=== PATIENT | male | born 1940 | race Caucasian/White ===

== ENCOUNTER 2021-01-12 12:21 | Outpatient (CLI) | payer MEDICARE, SELFPAY ==
--- NOTE | 2021-01-12 13:19 | ECHO_ITS ---
Patient Info Name: Navid Hartmann Age: 80 years : 1940 Gender: Male Ht: 72 in Wt: 220 lbs BSA: 2.27 m2 HR: 59 bpm BP: 176 / 95 mmHg Technical Quality: Good Exam Date: 01/12/2021 1:33 PM Exam Location: [facility] Patient Status: Outpatient Admit Date: 01/12/2021 Staff Ordering Physician: Jay Thomas DO Ux Developer Designer: Gabby Salgado RDCS Attending Provider: Jay Thomas DO Referring Physician: William OROPEZA; Exam Type: CA echo doppler color flow Study Info Indications - palpitations Complete two-dimensional, color flow and Doppler transthoracic echocardiogram is performed. Summary 1. Complete two-dimensional, color flow and Doppler transthoracic echocardiogram is performed. 2. Left ventricular chamber dimension is normal. 3. Left ventricular systolic function is normal, estimated at 60-65%. 4. There is mildly increased left ventricular wall thickness. 5. The left ventricular diastolic function is grade I diastolic dysfunction. 6. E/e' 10 is mildly elevated. 7. Left atrial chamber dimension is mildly enlarged. 8. There is trace aortic valve regurgitation. 9. There is trace mitral valve regurgitation. 10. There is mild tricuspid valve regurgitation. 11. No pulmonary hypertension, estimated pulmonary arterial systolic pressure is 29 mmHg. 12. There is trace pulmonic regurgitation. Left Ventricle E/e' 10 is mildly elevated. Left ventricular chamber dimension is normal. Left ventricular systolic function is normal, estimated at 60-65%. There is mildly increased left ventricular wall thickness. The left ventricular diastolic function is grade I diastolic dysfunction. Right Ventricle Right ventricular chamber dimension is normal. Right ventricular systolic function is normal. Left Atria Left atrial chamber dimension is mildly enlarged. Right Atria Right atrial chamber dimension is normal. Aortic Valve The aortic valve is trileaflet. There is no aortic valve stenosis. There is trace aortic valve regurgitation. Pulmonic Valve There is trace pulmonic regurgitation. Mitral Valve There is no mitral valve stenosis. There is trace mitral valve regurgitation. Tricuspid Valve There is mild tricuspid valve regurgitation. No pulmonary hypertension, estimated pulmonary arterial systolic pressure is 29 mmHg. Pericardium/Pleural There is no pericardial effusion. Inferior Vena Cava Normal inferior vena cava with >50% collapse upon inspiration consistent with normal right atrial pressure, 5 mmHg. Aorta The aortic root size at the sinus of Valsalva is normal. Left Ventricular Outflow Tract Name Value Normal LVOT 2D LVOT Diameter 2.1 cm LVOT Doppler LVOT Peak Gradient 4 mmHg LVOT Mean Gradient 2 mmHg LVOT VTI 23 cm LVOT VTI/AV VTI Ratio 0.8 LVOT Stroke Volume 83 ml LVOT CO 15.4 l/min LVOT CI 6.8 l/min/m2 Pulmonic Valve
== END 2021-01-12 12:22 | disposition home or self-care (01) ==
PROVIDERS: PCP Family Medicine Sports Medicine; Visit Provider Internal Medicine Cardiovascular Disease
DX: R00.2 Palpitations (principal); I36.1 Nonrheumatic tricuspid (valve) insufficiency
CPT/HCPCS: 93306

== ENCOUNTER 2021-08-03 16:26 | Observation (INO) | payer MEDICARE, SELFPAY ==
[2021-08-03] VITALS (8 sets, daily range): BP systolic 125–161; BP diastolic 70–104; PULSE 56–79; RESP 16–20; TEMP 35.9–36.6; O2SAT 97–100
--- OUTSIDE RECORDS SUMMARY | 2021-08-03 14:56 | XMS_ITS ---
:1940 Author Care Team Providers Name Role Phone DR. VICKY LOMBARDO Primary Care Provider [phone] DR. VICKY LOMBARDO Referring Provider [phone] Allergies None recorded. Medications Name Status Start Date Stop Date ? ? albuterol sulfate HFA 90 mcg/actuation aerosol inhaler Active ? Not available INHALE 2 PUFFS BY MOUTH INTO THE LUNGS EVERY 6 HOURS NEEDED FOR WHEEZING allopurinol 300 mg tablet Completed ? 2021 alprazolam 0.25 mg tablet Completed ? 2018 amlodipine 5 mg tablet Active ? Not avail able amoxicillin 875 mg tablet Completed ? 2018 amoxicillin 875 mg-potassium Completed ? clavulanate 125 mg tablet azithromycin 250 mg tablet Completed ? 05/04 benzonatate 100 mg capsule Completed ? 05/04 TK 2 CS PO BID bupivacaine HCl 0.5 % (5 mg/mL) injection solution Active ? Not available Take 20 mg by injection route. cefdinir 300 mg capsule Completed ? 05/04/20 19 cephalexin 500 mg capsule Completed ? 2018 doxycycline hyclate 100 mg capsule Active ? Not available Take 1 capsule twice a day by oral route. hydrocodone 5 mg-acetaminophen 325 mg Completed ? 05/04/2019 tablet hydrocodone 7.5 mg-acetaminophen 500 mg Completed ? 05/04/2019 tablet Kenalog 10 mg/mL suspension for injection Active ? Not available In office injection administered by the provider lidocaine (PF) 10 mg/mL (1 %) injection solution Completed ? 06/14/2021 In office injection administered by the provider meloxicam 15 mg tablet Completed ? 9 methylprednisolone 4 mg tablets in a Completed ?
--- OUTSIDE RECORDS SUMMARY | 2021-08-03 14:56 | XMS_ITS | Encounter Summary ---
:1940 Author Care Team Providers Name Role Phone Dr. Jono Haque Primary Care Provider [phone] Dr. Jono Haque Referring Provider [phone] Reason for Visit Left Knee Problem/Pain Assessment and Plan Assessment Note patient returns knee pain left jon ullandry is doing okay although he does have tear he has got impingement in the shoul landry but not bad as the left knee involving primarily has moderate arthritis on his x-rays but certainly not [id number] will give a shot will try an MRI scans he was going on he has any changes or problems he will call discussed 1. Pain of left knee joint ? XR, knee, 3 view ? bupivacaine HCl 0.5 % (5 m g/mL) injection solution ? Kenalog 10 mg/mL suspensio n for injection ? injection/aspiration joint /bursa (PROC) - in office procedure, administered by provider Discussion Note: None recorded.Patient educational handouts: No information available. Plan of Care Reminders Provider Appointments None ? ? recorded. Lab None ? ? recorded. Referral None ? ? recorded. Procedures 06/14/2021 In-Office O rder Injection/aspiratio n Joint/bursa (PROC) Surgeries None ? ? recorded. Imaging XR, Knee, 06/14/2021 [facility] 3 View [place] Medications
--- OUTSIDE RECORDS SUMMARY | 2021-08-03 14:56 | XMS_ITS | Encounter Summary ---
:1940 Author Care Team Providers Name Role Phone Dr. Jono Haque Primary Care Provider [phone] Dr. Jono Haque Referring Provider [phone] Reason for Visit Left Knee Problem/Pain Assessment and Plan Assessment Note Patient has severe spondylosis of the cervical and thoracic spine x-rays show a dish type appearance. He has very large anterior osteophytes off the anterior C-spine with bridging of the osteophytes, he may have significant neural foraminal and central stenosis. We will get an MRI sca n for evaluation to make sure he does not have myelopathy significant nerve compre ssion. We will see him back after the MRI is done talked about further treatment opti ons at that time he may need referral to a spine surgeon. As far as his thoracic sp ine goes this seems to be less of an issue for him he gets occasional aches and pedrito ns here I do not see any evidence of fractures he does have significant spond ylosis here as well. Patient also has resolved left knee pain MRI scan only sh owed primary osteoarthritis no meniscal pathology. He did well with shot of john isone. We will continue to watch this manage it as necessary. He voiced understanding agrees above plan will call for any further problems difficulties or questions. Cert ainly if his symptoms worsen or change with his neck is instructed call immediately. 1. Pain of left knee joint 2. Neck pain ? XR, cervical spine, 2 or 3 view ? XR, thoracic spine ? MRI, neck, w/o contrast 3. Cervical radiculopathy 4. Thoracic spondylosis 5. Osteoarthritis of left knee j oint Discussion Note: None recorded.Patient educational handouts: No information available. P
--- OUTSIDE RECORDS SUMMARY | 2021-08-03 14:56 | XMS_ITS ---
:1940 Author Care Team Providers Name Role Phone DR. VICKY LOMBARDO Primary Care Provider [phone] DR. VICKY LOMBARDO Referring Provider [phone] VICKY LOMBARDO MD Primary Care Provider [phone] Allergies Code Code System Name Reaction Severity Status Onset NKDA ? Medications Name Status Start Date Stop Date ? ? allopurinol 300 mg tabs Active ? Not nell ilable allopurinol 300 mg tablet Active ? Not av ailable alprazolam 0.25 mg tablet Completed ? 2018 amlodipine 5 mg tablet Active ? Not avail able amlodipine besylate 5 mg tabs Active ? N ot available amoxicillin 875 mg tablet Completed ? 2018 azithromycin 250 mg tablet Completed ? 05/04 benzonatate 100 mg capsule Completed ? 05/04 TK 2 CS PO BID cefdinir 300 mg capsule Completed ? 05/04/20 cephalexin 500 mg capsule Completed ? 2018 doxycycline hyclate 100 mg capsule Completed ? 05/04/2019 hydrocodone 5 mg-acetaminophen 325 mg Completed ? 05/04/2019 tablet hydrocodone 7.5 mg-acetaminophen 325 mg Active ? Not available tablet hydrocodone 7.5 mg-acetaminophen 500 mg Completed ? 05/04/2019 tablet Kenalog 10 mg/mL suspension for injection Active ? Not available In office injection administered by the provider lidocaine (PF) 10 mg/mL (1 %) injection solution Active ? Not available In office injection administered by the provider meloxicam 15 mg tablet Completed ? 9 methylprednisolone 4 mg tablets in a Completed ? 05/04/2019
--- OUTSIDE RECORDS SUMMARY | 2021-08-03 15:10 | XMS_ITS | Encounter Summary ---
:1940 Author Care Team Providers Name Role Phone Dr. Jono Haque Primary Care Provider [phone] Dr. Jono Haque Referring Provider [phone] Reason for Visit Left Knee Problem/Pain Assessment [...]
--- OUTSIDE RECORDS SUMMARY | 2021-08-03 15:10 | XMS_ITS | Encounter Summary ---
:1940 Author Care Team Providers Name Role Phone Dr. Jono Haque Primary Care Provider [phone] Dr. Jono Haque Referring Provider [phone] Reason for Visit Left Knee Problem/Pain Assessment and Plan Assessment Note patient returns knee pain left jon ullandry is doing okay although he does have tear he has got impingement in the shoul landry but not bad as the left knee involving primarily has moderate arthritis on his x-rays but certainly not [id number] will give a shot will try an [...] Knee, 06/14/2021 [facility] 3 View [place] Medications
--- OUTSIDE RECORDS SUMMARY | 2021-08-03 15:10 | XMS_ITS ---
:1940 Author Care Team Providers Name Role Phone DR. VICKY LOMBARDO Primary Care Provider [phone] DR. VICKY LOMBARDO Referring Provider [phone] VICKY LOMBARDO MD Primary Care Provider [phone] Allergies Code Code System Name Reaction Severity [...]
--- OUTSIDE RECORDS SUMMARY | 2021-08-03 15:10 | XMS_ITS ---
:1940 Author Care Team Providers Name Role Phone DR. VICKY LOMBARDO Primary Care Provider [phone] DR. VICKY LOMBARDO Referring Provider [phone] Allergies None recorded. Medications Name Status Start [...]
--- NOTE | 2021-08-03 16:05 | PM.CNCAR ---
Assessment and Plan Assessment and plan (1) Chest pain: Code(s): R07.9 - Chest pain, unspecified Status: Acute Assessment and Plan: Probably musculoskeletal or costochondritis. Check another troponin here. Check EKG. (2) Vasovagal near syncope: Code(s): R55 - Syncope and collapse Status: Acute Assessment and Plan: Monitor overnight on telemetry for arrhythmias or pauses. (3) MARYBEL on CPAP: Code(s): G47.33 - Obstructive sleep apnea (adult) (pediatric); Z99.89 - Dependence on other enabling machines and devices Status: Acute (4) Obesity (BMI 30.0-34.9): Code(s): E66.9 - Obesity, unspecified Status: Acute (5) Essential hypertension: Code(s): I10 - Essential (primary) hypertension Status: Acute Assessment and Plan: Monitor. History of Present Illness History of Present Illness Consult date/time: 08/03/21 16:05 Reason for consult: CP. 80 yr old man who is my regular cardiology patient is transferred from [facility] for chest pains. He has a history of MARYBEL on CPAP and hypertension, covid infection in November 2020. States that light evening he felt sharp jabbing pain just left of his sternum and under left breast. He took Tums and NTG SL with no improvement but it comes and goes. He woke up this morning and felt upset stomach while walking to get coffee in the kitchen. Then he felt dizzy so he got down on his knees and lied down. His gave him a NTG SL. He did not actually pass out. Then he needed to have a bowel movement. Currently he has no dizziness or chest pains, he just feels hungry. Troponin is negative at [facility]. Previously, he recovered from symptoms of Covid including Covid pneumonia and DOUGLAS. He had Pfizer vaccine in August 2020. He only has a thump of an extra beat only. Denies sob, orthopnea, PND, edema, dizziness. His BP machine detected extra beats intermittently. CARDIOVASCULAR PROCEDURES ECHO/MUGA: 01/12/21 Echo: EF 60-65%, mild LVH, grade I diastolic dysfunction (E/e' 10), mild LAE, trace AI/MR/PI, mild TR. Echo (EF 55-60%, sigmoid hypertrophy of septum, Grade I diastolic dysfunction (E/E' 12), mild MR/PI, TR, trace AI, aortic root dilated at 4.1 cm.) - 11/16/2015 ELECTROPHYSIOLOGY: 05/02/20 28 days event monitor: Sinus rhythm, HR range 40-165 bpm; average HR 61 bpm; <1% PAC's and 3% PVC's; one 4 beat atrial tachycardia and 1 4 beat VT. 04/25/20 EKG: Sinus bradycardia at 57 bpm, IRBBB, LAFB. EKG (Sinus rhythm, LAFB.) - 08/26/2017 EKG (Sinus rhythm at 53 bpm, delayed precordial R/S transition, IVCD.) - 06/04/2016 Holter (48 hours: Sinus rhythm HR 43-127;average 62; 875 PAC's; 188 PVC's; brief episodes of SVT/atrial flutter at 5-10 seconds.) - 11/22/2015 EKG (Sinus rhythm, IVCD, LAFB.) - 10/23/2015 EKG (Sinus rhythm, borderline T wave abnormality- inferior leads, IVCD, LAFB.) - 06/14/2015 STRESS TESTS: MPI (Exercise MPI: Negative for ischemia; exercised for 6 min, 42 seconds. Small, mild infarct of apical septum.) - 10/03/2017 MPI (Negative for ischemia.) - 11/17/2015 OTHERS: Sleep Study (MARYBEL.) - 11/29/2015 Reason For Visit: Chest pain Review of Systems Review of Systems: All systems reviewed & are unremarkable except as noted in HPI and below Constitutional: Constitutional: Reports as per HPI, Denies chills, Reports fatigue and Denies fever(s) Cardiovascular: Cardiovascular: Reports as per HPI, Reports chest pain, Denies leg edema and Reports lightheadedness Respiratory: Respiratory: Reports as per HPI and Denies dyspnea Gastrointestinal: Gastrointestinal: Reports as per HPI and Denies abdominal pain Genitourinary: Genitourinary: Reports as per HPI and Denies dysuria Musculoskeletal: Musculoskeletal: Reports as per HPI Neurologic: Reports as per HPI, Reports dizziness and Denies syncope [facility] Past Medical History Medical History (Reviewed 12/26/20 @ 14:05 by Claire Joyner [facility] [address]) Body mass index (bmi) 29.0-29.9, adult
--- NOTE | 2021-08-03 16:12 | ECG_ITS ---
Measurements Intervals [place] Rate: 59 P: 42 WY: 209 QRS: -53 QRSD: 158 T: 39 QT: 414 QTc: 411 Interpretive Statements SINUS BRADYCARDIA INTRAVENTRICULAR CONDUCTION DELAY [130+ ms QRS DURATION] NO PREVIOUS ECG AVAILABLE FOR COMPARISON Electronically Signed On 08-04-2021 14:18:28 RECYCLING COLLECTIONS DRIVER by Joss Johnson M.D.
--- NOTE | 2021-08-03 16:16 | ADMGEN ---
This patient, Navid Hartmann, was admitted to IMU Room 204-01 at 1415. Patient/family oriented to hospital policies and general routines including ID bracelet, bed and alarms, visiting hours, pain management, procedures, bathroom and other care routines, personal items, smoking policy, room service/diet, and visiting hours. Information on how to activate the Rapid Response Team has been discussed. Patient/Family are encouraged to report perceived risks to care and to ask questions if they do not understand what they are told or what they should do.
[2021-08-03 17:09] LABS: Troponin I < 0.012 ng/mL (0.000-0.034)
--- NOTE | 2021-08-03 18:30 | PM.IMHP ---
H&P: HPI History of Present Illness Date/Time: 08/03/21 18:30 <Genet Johnson PA-C - Last Filed: 08/03/21 22:46> Chief Complaint: Chest pain. <Genet Johnson PA-C - Last Filed: 08/03/21 22:46> Narrative: This is a pleasant 80-year-old male with history of hypertension and sleep apnea who is being directly admitted to the hospitalist service from the emergency department at [facility] in [place] for further evaluation of chest pain and consultation with his general accounting clerk, Dr. Thomas. Last evening while eating dinner he had a couple of instances of self-limiting left anterior chest pain that he describes as sharp or poking in nature. He took nitroglycerin sublingual x2 with resolution of his symptoms and he slept just fine overnight. This morning not long after getting out of bed he was walking down the hallway to the kitchen when he began to feel ?strange.? Reportedly he began to feel weak, lightheaded and diaphoretic. He fell down onto his knees as he thought perhaps he was going to pass out and due to ongoing lightheadedness he lay on the floor. He called for his who brought his blood pressure cuff at which time he noted that his blood pressure was 170/92. Shortly thereafter he once again had sharp chest pain with nausea and he took another sublingual nitroglycerin. Eventually he felt better and his helped him up and he was going to lie down in bed for a while though once he got into his bedroom he had the sudden urge to have a bowel movement and he reports passing a normal stool. While on the toilet he once again had this sharp chest discomfort and he took 1 more nitroglycerin before going to the ER. EKG done today on arrival to our facility showed sinus bradycardia with intraventricular conduction delay and no acute ST segment changes. He has ruled out for acute coronary syndrome by serial troponins. At the time my evaluation he is having no discomfort and he is eating a meal without issue. He has occasional GERD but these symptoms over the past 24 hours are not at all similar to those he experiences with indigestion. He has not had any difficulty swallowing but reports having dysphagia a couple of months ago when he was started on fish oil pills for which he was given speech therapy exercises and he has not had any problems since. He does take naproxen 500 mg twice daily though he denies abdominal and epigastric discomfort. He has not noticed melena or hematochezia. <Genet Johnson PA-C - Last Filed: 08/03/21 22:46> Review of Systems Review of Systems: Twelve systems were reviewed. No fever. No recent cold or flu symptoms. He had COVID last summer. No sick contacts. Denies exertional chest pain and palpitations. No pleuritic pain. No orthopnea, PND, or lower extremity edema. Except as documented, all other systems were reviewed and are negative. <Genet Johnson PA-C - Last Filed: 08/03/21 22:46> [facility] Past Medical History Medical History: Medical History (Updated 08/03/21 @ 22:42 by Genet Johnson PA-C) Abnormal stress test (09/2017) Exercise stress was negative for ischemia. MPI showed small, mild infarct of the apical septum. Diastolic dysfunction Echocardiogram in December 2020 showed grade 1 diastolic dysfunction, mild LVH, and an EF of 60 to 65%. Essential hypertension Gout Obstructive sleep apnea on CPAP <Genet Johnson PA-C - Last Filed: 08/03/21 22:46> Surgical History Surgical History: Surgical History (Updated 08/03/21 @ 22:39 by Genet Johnson PA-C) History of arthroscopic knee surgery History of bilateral carpal tunnel release History of hernia repair History of lumbar surgery History of repair of rotator cuff <Genet Johnson PA-C - Last Filed: 08/03/21 22:46> Family History Family History: Family History Sibling Cerebrovascular accident Cancer Father Heart failure [place]
[2021-08-03 20:01] LABS: Glucose Point of Care 185 mg/dl (65-105)
[2021-08-03] MEDS: ASPIRIN 81 MG ENTERIC TABLET PO (23:23)
[2021-08-03] MEDS: amLODIPine BESYLATE 5 MG TABLET PO (23:24)
[2021-08-04] VITALS (7 sets, daily range): BP systolic 151–169; BP diastolic 57–74; PULSE 52–68; RESP 18–21; TEMP 35.6–36.3; O2SAT 97–100
--- NOTE | 2021-08-04 02:52 | PC.NURSE ---
Report given to Sindy Mace RN. She will take over care of this patient.
[2021-08-04 04:43] LABS: Hematocrit 41.8 % (42.0-52.0); Hemoglobin 13.8 g/dL (14.0-18.0); Mean Corpuscular Hemoglobin 28.8 pg (26-34); Mean Corpuscular Volume 87.1 fl (80-100); Mean Platelet Volume 10.9 fl (7.4-10.4); Platelet Count Result 180 k/mm3 (150-375); Red Cell Distribution Width 14.4 % (11.5-14.5); White Blood Count 7.8 K/mm3 (4.5-10.0)
[2021-08-04 04:51] LABS: Hemoglobin A1C 5.4 % (<5.7)
[2021-08-04 04:56] LABS: Anion Gap 6 mmol/L (8-16); Blood Urea Nitrogen 17 mg/dL (9-20); Calcium 8.7 mg/dL (8.4-10.2); Carbon Dioxide 29 mmol/L (22-30); Chloride 104 mmol/L (98-107); Estimated Glomerular Filt Rate > 60; Glucose 101 mg/dL (65-110); Magnesium 2.1 mg/dL (1.6-2.3); Sodium 139 mmol/L (137-145)
--- NOTE | 2021-08-04 06:22 | PM.PNCARD ---
Progress Note: A&P Assessment and Plan (1) Chest pain: Code(s): R07.9 - Chest pain, unspecified Status: Acute Assessment and Plan: Probably musculoskeletal or costochondritis. Negative serial troponin and EKG. (2) Vasovagal near syncope: Code(s): R55 - Syncope and collapse Status: Acute Assessment and Plan: Monitor overnight on telemetry for arrhythmias or pauses. No events overnight. Keep well hydrated. Advised to lie down immediately with legs elevated if symptoms occur again to abort syncope and possible injury. May d/c home from cardiology standpoint and f/u with me in 2 weeks. Consider 30 day event monitor at that time. (3) MARYBEL on CPAP: Code(s): G47.33 - Obstructive sleep apnea (adult) (pediatric); Z99.89 - Dependence on other enabling machines and devices Status: Acute (4) Obesity (BMI 30.0-34.9): Code(s): E66.9 - Obesity, unspecified Status: Acute (5) Essential hypertension: Code(s): I10 - Essential (primary) hypertension Status: Acute Assessment and Plan: Monitor. Continue home medication. Subjective Date/time seen: 08/04/21 06:22 Denies any more chest pain or sob. No dizziness. Exam Const: General: cooperative, healthy appearing and comfortable Resp: Auscultation: clear to auscultation bilaterally, no crackles, no rales, no rhonchi and no wheezes Cardio: Jugular venous distension: no JVD Rate: regular rate Rhythm: regular rhythm Heart sounds: no murmurs Peripheral pulses: dorsalis pedis present GI: GI Palp: No abdominal tenderness and Yes Soft to palpation Neuro: General: oriented to person, oriented to place and oriented to time Extrem: Right lower extremity: no edema Left lower extremity: no edema Objective Data Vital Signs Vital Signs: Vital Signs - 24 hr 08/03/21 14:30 08/03/21 15:35 08/03/21 16:00 Temperature 97.8 F 97.8 F 96.6 F L Pulse Rate 58 L 58 L 58 L Respiratory Rate 16 16 16 Blood Pressure 155/75 H 155/75 H 125/104 H Pulse Oximetry 100 100 100 08/03/21 18:00 08/03/21 20:00 08/03/21 20:10 Temperature 97.8 F Pulse Rate 79 59 L 60 Respiratory Rate 20 Blood Pressure 161/70 H Pulse Oximetry 100 100 08/03/21 22:00 08/03/21 23:45 08/04/21 00:00 Temperature 97.4 F L Pulse Rate 61 62 63 Respiratory Rate 20 Blood Pressure 169/57 H Pulse Oximetry 97 97 08/04/21 02:00 08/04/21 04:00 08/04/21 05:05 Temperature 96.1 F L Pulse Rate 54 L 52 L 57 L Respiratory Rate 21 H Blood Pressure 152/74 H Pulse Oximetry 97 08/04/21 06:00 Temperature Pulse Rate 58 L Respiratory Rate Blood Pressure Pulse Oximetry Intake/Output Intake/Output: Intake & Output 08/01/21 08/02/21 08/03/21 08/04/21 23:59 23:59 23:59 23:59 Intake Total 740 250 Output Total 2 Balance 740 248 Meds/Results Medications: Active Medications Generic Name Dose Route Start Last Admin Trade Name Freq PRN Reason Stop Dose Admin Albuterol 2 puff 08/03/21 22:46 Albuterol Sulfate (*Sp) Aerosol 1 Puff INHALATION Q6H PRN Shortness Of Breath Allopurinol 300 mg 08/04/21 08:00 Allopurinol 300 Mg Tablet PO DAILY@0800 [facility] Amlodipine Besylate 5 mg 08/03/21 22:50 08/03/21 23:24 Amlodipine Besylate 5 Mg Tablet PO 5 mg HS MIN Administration Aspirin 81 mg 08/03/21 23:00 08/03/21 23:23 Aspirin 81 Mg Enteric Tablet PO 81 mg HS MIN Administration Fish Oil 1 gm 08/04/21 09:00 [place] 3 Polyunsat Fatty Acids 1 Gm Cap PO DAILY MIN Tramadol HCl 50 mg 08/03/21 22:46 Tramadol Hcl (*Crx) 50 Mg Tablet PO HS PRN Pain Rated 4-6 Labs Labs: Laboratory Results - last 24 hr 08/03/21 08/03/21 08/04/21 16:35 19:53 04:21 WBC 7.8 RBC 4.80 Hgb 13.8 L Hct 41.8 L MCV 87.1 MCH 28.8 MCHC 33.0 RDW 14.4 Plt Count 180 MPV 10.9 H Sodium Potassium Chloride Carbon Dioxide
[2021-08-04] MEDS: OMEGA 3 POLYUNSAT FATTY ACIDS 1 GM CAP PO (08:31)
[2021-08-04] MEDS: allopurinoL 300 MG TABLET PO (08:31)
--- NOTE | 2021-08-04 10:05 | PM.DS ---
DS: Admitting Diagnosis Discharge Date 08/04/2021 Admitting Diagnosis chest pain DS: Discharge Diagnosis Discharge Diagnosis (1) Chest pain: Code(s): R07.9 - Chest pain, unspecified Status: Acute Assessment and Plan: Atypical for cardiac pain. Has rule out for acute coronary syndrome by serial troponins. Pain is not reproducible on palpation. The patient does take naproxen 500 mg b.i.d. which could be causing some gastric discomfort though his abdominal exam was benign and he has not really had any GI complaints. Dr. Thomas has been consulted and his input is appreciated. (2) Near syncope: Code(s): R55 - Syncope and collapse Status: Acute Assessment and Plan: Sounds as though the patient had a vasovagal reaction earlier this morning however he reports that his blood pressure was high (170/92) during that episode while he was lying on the floor. (3) Diastolic dysfunction: Code(s): I51.89 - Other ill-defined heart diseases Status: Acute Assessment and Plan: Appears clinically compensated. (4) Obstructive sleep apnea on CPAP: Code(s): G47.33 - Obstructive sleep apnea (adult) (pediatric); Z99.89 - Dependence on other enabling machines and devices Status: Acute Assessment and Plan: CPAP will be provided for the patient to use while hospitalized. (5) Hyperglycemia: Code(s): R73.9 - Hyperglycemia, unspecified Status: Acute Assessment and Plan: Check fasting glucose and hemoglobin A1c. (6) Essential hypertension: Code(s): I10 - Essential (primary) hypertension Status: Acute Assessment and Plan: Patient reports that his blood pressures have been running higher than usual recently. At this time will continue with his antihypertensives and make adjustments accordingly depending on his trend. DS: Summary Hospital Course Reason for hospitalization: Chief Complaint: Chest pain. <Genet Johnson PA-C - Last Filed: 08/03/21 22:46> Narrative: This is a pleasant 80-year-old male with history of hypertension and sleep apnea who is being directly admitted to the hospitalist service from the emergency department at [facility] in [place] for further evaluation of chest pain and consultation with his forest aide, Dr. Thomas. Last evening while eating dinner he had a couple of instances of self-limiting left anterior chest pain that he describes as sharp or poking in nature. He took nitroglycerin sublingual x2 with resolution of his symptoms and he slept just fine overnight. This morning not long after getting out of bed he was walking down the hallway to the kitchen when he began to feel ?strange.? Reportedly he began to feel weak, lightheaded and diaphoretic. He fell down onto his knees as he thought perhaps he was going to pass out and due to ongoing lightheadedness he lay on the floor. He called for his who brought his blood pressure cuff at which time he noted that his blood pressure was 170/92. Shortly thereafter he once again had sharp chest pain with nausea and he took another sublingual nitroglycerin. Eventually he felt better and his helped him up and he was going to lie down in bed for a while though once he got into his bedroom he had the sudden urge to have a bowel movement and he reports passing a normal stool. While on the toilet he once again had this sharp chest discomfort and he took 1 more nitroglycerin before going to the ER. EKG done today on arrival to our facility showed sinus bradycardia with intraventricular conduction delay and no acute ST segment changes. He has ruled out for acute coronary syndrome by serial troponins. At the time my evaluation he is having no discomfort and he is eating a meal without issue. He has occasional GERD but these symptoms over the past 24 hours are not at all similar to those he experiences with indigestion. He has not had any difficulty swallowin
== END 2021-08-04 10:32 | disposition home or self-care (01) ==
PROVIDERS: Internal Medicine Cardiovascular Disease; Physician Assistant; Admitting Provider Family Medicine; PCP Family Medicine Sports Medicine; Visit Provider Family Medicine
DX: R07.9 Chest pain, unspecified (principal); R55 Syncope and collapse; I11.9 Hypertensive heart disease without heart failure; R73.9 Hyperglycemia, unspecified; M10.9 Gout, unspecified; G47.33 Obstructive sleep apnea (adult) (pediatric); Z87.891 Personal history of nicotine dependence
CPT/HCPCS: 36415; 80048; 82948; 83036; 83735; 84484; 85027; 93005; A9270; G0378

== ENCOUNTER 2021-08-08 12:43 | Inpatient (IN) | payer MEDICARE, SELFPAY ==
[2021-08-08] VITALS (18 sets, daily range): BP systolic 133–177; BP diastolic 54–89; PULSE 53–93; RESP 9–24; TEMP 35.7–36.8; O2SAT 93–100; BMI 28.9
--- NOTE | ~2021-08-08 | CT_ITS ---
EXAMINATION: CTA brain carotid EXAM DATE: 08/08/2021 15:36 INDICATION: Vertigo, dizziness, weakness, nausea. TECHNIQUE: Spiral CTA of the carotid arteries was performed with intravenous injection 100 cc of Om nipaque 350. Axial, coronal, sagittal reformatted images reviewed. Additional reformatted images cre ated on dedicated 3-D workstation. NASCET comparable standard used to assess the degree of arterial stenosis. Spiral CT angiogram cerebral arteries performed with the same intravenous injection of con trast. Source images of the brain CTA transferred to dedicated workstation for 3-D rotational image c reation. Coronal, sagittal maximum intensity pixel images also reviewed. The dose-length product (D LP) for this examination was 1218.71 mGy-cm. The exposure was tailored according to patient size, a nd iterative reconstruction (ASIR) was used as additional dose reduction technique. Correlation is ma de to head CT earlier same date. FINDINGS: There is left carotid bulb arterial sclerosis with 20% stenosis. There is minimal right car otid bulb arteriosclerosis. Less robust enhancement of the left vertebral artery, with severe stenosi s of its origin suspected. Vertebral arteries are codominant. There is no carotid or vertebral basil ar arterial dissection or fibromuscular dysplasia. There are no cerebral artery aneurysms. There is s ymmetric cerebral artery arborization. The sagittal, transverse and sigmoid sinuses enhance normally, no venous sinus thrombosis. Internal cerebral veins also enhance normally. There are 3 small low-attenuation left cerebellar lesions, possibly acute infarctions but probably gr eater than 6 hours in age. Mild atrophy and microangiopathy. Incidental Findings: Right-sided cataract surgery. IMPRESSION: 1. Small left cerebellar infarctions which could be acute. 2. Left carotid bulb 20% stenosis. 3. Codominant vertebral arteries with severely stenotic left vertebral artery origin. Reviewed, dictated and finalized at location A. HYSICAL COMPUTER
--- NOTE | ~2021-08-08 | MR_ITS ---
EXAMINATION: MR brain/brain stem wo/w con DATE: 08/09/2021 12:21 INDICATION: Vertigo. TECHNIQUE: Magnetic resonance imaging (MRI) of the brain and brainstem was performed without and with 19 mL MultiHance intravenous contrast. Sequences included sagittal and axial T1-weighted FSE, axial diffusion-weighted FS EPI, axial T2*-weighted GRE, axial T2-weighted FLAIR Propeller, axial T2-weight ed Propeller, small qeaji-hv-wmdv coronal FIESTA, small qdeav-gp-elya coronal T1-weighted FSE, and sm all gxhkq-wa-bqor axial T1-weighted SPGR. Postcontrast sequences included axial T1-weighted FSE, smal l eikwo-yq-bvtz coronal T1-weighted FSE, and small zqqyn-xe-nagq axial T1-weighted SPGR. Apparent dif fusion coefficient (ADC) maps were created. COMPARISON: Head CT 08/08/2021 FINDINGS: There are acute infarcts in the cerebellum bilaterally. There is no intracranial hemorrhage or abnormal mass lesion. There are scattered areas of nonspecific increased T2-weighted signal inten sity in the cerebral white matter. There is an old lacunar infarct in the right lentiform nucleus. Th e ventricles are normal in size. There are likely changes of right ocular lens replacement surgery. T here is mild mucosal thickening in the paranasal sinuses. The internal auditory canals and inner and middle ears are normal. The mastoid air cells are normal. IMPRESSION: 1. 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 2. 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 3. Mild nonspecific cerebral white matter disease, which likely represents chronic small vessel ische maximo disease. Reviewed, dictated and finalized at location A. ETICIAN AND MANAGER MEDICAL SPA IMPRESSION: 1. 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 2. 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 3. Mild nonspecific cerebral white matter disease, which likely represents filemaker developer vaishali small vessel ischemic disease.
--- NOTE | ~2021-08-08 | XR_ITS ---
EXAMINATION: XR abdomen/kub 1V DATE: 08/08/2021 22:39 INDICATION: Abdominal distention TECHNIQUE: A supine view of the abdomen on 2 radiographs was obtained. COMPARISON: CT abdomen and pelvis dated 03/02/2015 FINDINGS: Excreted contrast at the calyces of both kidneys and in the bladder related to an earlier contrast-en hanced CT angiogram of the head and neck. Small amount of gas scattered throughout the colon. No dila tucker loops of gas-filled bowel to suggest obstruction. Visualized portions of the lung bases are clear . 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 Ankylosis at the bilater al sacroiliac joints. IMPRESSION: 1. No dilated loops of bowel to suggest obstruction. Reviewed, dictated and finalized at location A. AL WINDER
--- NOTE | ~2021-08-08 | XR_ITS ---
EXAMINATION: XR chest 2V DATE: 08/08/2021 13:50 INDICATION: Weakness and vomiting TECHNIQUE: AP and lateral views of the chest are obtained. COMPARISON: 02/12/2008 FINDINGS: The lungs are free of acute opacities. There is no pleural effusion or pneumothorax. The ca rdiomediastinal silhouette is normal. There are bridging osteophytes at multiple levels in the spine, consistent with diffuse idiopathic skeletal hyperostosis (DISH). IMPRESSION: 1. No acute cardiopulmonary abnormality. Reviewed, dictated and finalized at location B. L BALER
--- NOTE | ~2021-08-08 | CT_ITS ---
EXAMINATION: CT brain wo con INDICATION: Dizziness and weakness COMPARISON: None TECHNIQUE: Standard unenhanced head CT. The dose-length product (DLP) was 681.00 mGy-cm. The mA was a djusted according to patient size. Iterative reconstruction technique was employed. FINDINGS: There is no acute intraparenchymal hemorrhage. No evidence of mass lesion. There are at [address] three foci of low attenuation in left cerebellar hemisphere. There is mild periventricular and sub cortical hypodensity probably related to small vessel ischemic disease. There is mild prominence of t he sulci and ventricles related to cerebral atrophy. Intracranial calcified cerebral atherosclerosis is noted. There are no extra-axial collections. There is no mass effect or midline shift. Changes in the right globe are likely from ocular lens surgery. The visualized sinuses and mastoid air cells are well aerated. IMPRESSION: 1. Three foci of low attenuation in the left cerebellar hemisphere which could reflect areas of age-i ndeterminate infarction. 2. Age related findings. Reviewed, dictated and finalized at location B. ECTOR PLATE ATTACHER IMPRESSION: 1. Three foci of low attenuation in the left cerebellar hemisphere which could reflect areas of age-indeterminate infarction. 2. Age related findings.
--- NOTE | 2021-08-08 13:31 | ECG_ITS ---
Measurements Intervals [place] Rate: 57 P: 20 VT: 206 QRS: -59 QRSD: 140 T: 47 QT: 447 QTc: 438 Interpretive Statements SINUS BRADYCARDIA WITH FIRST-DEGREE AV BLOCK INTRAVENTRICULAR CONDUCTION DELAY [130+ ms QRS DURATION] POSSIBLE LEFT VENTRICULAR HYPERTROPHY [VOLTAGE CRITERIA PLUS LAE OR QRS WIDENING] POSSIBLE SEPTAL MYOCARDIAL INFARCTION , PROBABLY OLD [30 ms Q WAVE IN V1/V2] PROBABLE LATERAL MYOCARDIAL INFARCTION , OF INDETERMINATE AGE [35 ms Q WAVE IN I/aVL/V5/V6] BASELINE ARTIFACT COMPARED TO ECG 08/03/2021 16:48:40 NO SIGNIFICANT CHANGES Electronically Signed On 08-08-2021 16:44:23 CLINIC MANAGER by Joss Johnson M.D.
[2021-08-08 13:55] LABS: Basophils Percent Auto 0.2 % (0.2-1.2); Eosinophils Percent Auto 0.2 % (0-4.4); Hematocrit 47.3 % (42.0-52.0); Hemoglobin 15.4 g/dL (14.0-18.0); Immature Granulocyte Absolute 0.02 K/mm3 (0.00-0.031); Immature Granulocyte Percent A 0.2 % (0-0.5); Lymphocytes Absolute Auto 1.27 K/mm3 (0.9-3.2); Lymphocytes Percent Auto 14.4 % (18.3-44.2); Mean Corpuscular HGB Conc 32.6 g/dl (32-36); Mean Corpuscular Hemoglobin 28.8 pg (26-34); Mean Corpuscular Volume 88.4 fl (80-100); Mean Platelet Volume 11.1 fl (7.4-10.4); Monocytes Absolute Auto 0.5 K/mm3 (0.1-0.6); Monocytes Percent Auto 5.1 % (2.6-8.5); Neutrophils Percent Auto 79.9 % (45.5-73.1); Platelet Count Result 174 k/mm3 (150-375); Red Blood Count 5.35 M/mm3 (4.6-6.20); Red Cell Distribution Width 14.3 % (11.5-14.5); White Blood Count 8.8 K/mm3 (4.5-10.0)
[2021-08-08 13:59] LABS: Add Urine Microscopic? YES; Appearance Urine Clear (Clear); Bilirubin Urine Negative (Negative); Blood Urine 1+ (Negative); Color Urine Straw (Yellow); Glucose Urine UA 3+ mg/dL (Negative); Ketones Urine Trace mg/dL (Negative); Leukocyte Esterase Ur Negative LEU/UL (Negative); Nitrate Urine Negative (Negative); Protein Urine 1+ mg/dL (Negative); Specific Grav Ur 1.009 (1.001-1.035); Urobilinogen Urine Negative mg/dL (<2.0); WBC Urine 0-3 /hpf
--- NOTE | 2021-08-08 14:05 | ED.DIZZY ---
HPI - Dizziness General Chief Complaint: Dizziness Stated Complaint: weak, dizzy Time Seen by Provider: 08/08/21 12:51 Source: RN notes reviewed History of Present Illness HPI Narrative: Patient presents emergency department from home for dizziness. Patient states that this morning he had gone to the restroom and was walking back pain began to become very dizzy states that today he felt he is got a pass out and laid down on the floor states he laid there for approximately an hour and continued to feel dizzy was able to get out his called EMS he denies having a full syncopal episode he denies any chest pain or shortness of breath he states he feels dizzy when he sits up or opens his eyes is associated with nausea was improved with Zofran by EMS denies any numbness or tingling in the extremities. Patient states symptoms began at approximately 0615 this morning Related Data Home Medications Medication Instructions Recorded Confirmed allopurinol 300 mg tablet 300 mg PO DAILY 09/03/19 08/03/21 naproxen 500 mg tablet 500 mg PO BID tablet 09/03/19 08/03/21 aspirin 81 mg tablet,delayed 81 mg PO HS 04/25/20 08/03/21 release omega-3 fatty acids 1,000 mg 1,000 mg PO DAILY 06/05/21 08/03/21 capsule albuterol sulfate 2 puff INHALATION Q6H PRN 08/03/21 08/03/21 amlodipine 5 mg PO HS 08/03/21 08/03/21 tramadol 50 mg PO HS PRN 08/03/21 08/03/21 Allergies Allergy/AdvReac Type Severity Reaction Status Date / Time meloxicam AdvReac Palpitation Verified 08/03/21 15:12 s valdecoxib [From Bextra] AdvReac Palpitation Verified 08/03/21 15:12 s Review of Systems Review of Systems: Gen.: Denies fevers or chills Eyes: Denies eye pain or visual change ENT: Denies congestion Respiratory: Denies shortness of breath or cough CV: Denies chest pain or palpitations GI: Denies abdominal pain or diarrhea reports nausea vomiting Musculoskeletal: Denies back pain or muscle pain Neuro: see HPI Skin: Denies rash Except as documented, all other systems reviewed and negative PMFSH Past Medical History Medical History Abnormal stress test (09/2017) Exercise stress was negative for ischemia. MPI showed small, mild infarct of the apical septum. Diastolic dysfunction Echocardiogram in December 2020 showed grade 1 diastolic dysfunction, mild LVH, and an EF of 60 to 65%. Essential hypertension Gout Obstructive sleep apnea on CPAP Surgical History Surgical History (Updated 08/03/21 @ 22:39 by Genet Johnson PA-C) History of arthroscopic knee surgery History of bilateral carpal tunnel release History of hernia repair History of lumbar surgery History of repair of rotator cuff Family History Family History Sibling Cerebrovascular accident Cancer Father Heart failure Mother Cancer Social History Social History Social History: Surrogate decision maker: Kim Hartmann, . Code status: Full code. Smoking packs per day: 1 Smoking cigarettes per day: 20.0 Years smoked: 25 Smoking pack-years: 25.00 Smoking status: Never smoker Alcohol intake: current Drinks per week: 1 Substance use: never Substance use type: does not use Exam Narrative: APPEARANCE: No acute distress, nontoxic, resting in bed EYES: EOMI, PERRL HEENT: Normocephalic, atraumatic, right TM is obscured by cerumen and ear canal left TM is normal appearance nares patent RESPIRATORY: No respiratory distress Clear to auscultation bilaterally with no rhonchi wheezing or rales. CARDIOVASCULAR: Regular rate and rhythm without murmurs rubs or gallops. ABDOMINAL: Soft, nontender, nondistended, no rebound or guarding MUSCULOSKELETAl: Moves all extremities. No clubbing, cyanosis or edema. NEURO: Awake and alert x 3. Following commands, speech normal, no focal deficits SKI
[2021-08-08 14:10] LABS: Alanine Aminotransferase 34 U/L (4-50); Albumin Level 4.8 g/dL (3.5-5.1); Alkaline Phosphatase 99 U/L (38-126); Anion Gap 12 mmol/L (8-16); Aspartate Amino Transferase 42 U/L (17-59); Bilirubin,Total 0.6 mg/dL (0.2-1.3); Blood Urea Nitrogen 15 mg/dL (9-20); Calcium 8.9 mg/dL (8.4-10.2); Carbon Dioxide 25 mmol/L (22-30); Chloride 101 mmol/L (98-107); Estimated CRCL calculation 78 ml/min; Estimated Glomerular Filt Rate > 60; Glucose 177 mg/dL (65-110); Potassium 3.6 mmol/L (3.4-5.0); Sodium 138 mmol/L (137-145)
[2021-08-08] MEDS: MECLIZINE HCL 12.5 MG TABLET PO (14:11)
[2021-08-08 14:51] LABS: Troponin I < 0.012 ng/mL (0.000-0.034)
[2021-08-08 16:28] LABS: INR 1.1; Prothrombin Time 13.6 Seconds (11.1-14.7)
[2021-08-08 16:29] LABS: Partial Thromboplastin Time 28.8 SECONDS (22.3-36.8)
[2021-08-08] MEDS: ASPIRIN 81 MG CHEWABLE TABLET 324 MG PO (16:43)
[2021-08-08] MEDS: CLOPIDOGREL BISULFATE 75 MG TABLET PO (17:12)
[2021-08-08] MEDS: diazePAM INJ (*CRX) 10 MG/2 ML SYRINGE 2 MG IV PUSH (17:13)
--- NOTE | 2021-08-08 18:00 | PM.IMHP ---
H&P: HPI History of Present Illness Date/Time: 08/08/21 18:00 Chief Complaint: Dizziness. Narrative: This is a pleasant 80-year-old male with history of hypertension and sleep apnea who presented to the emergency department from home for evaluation of dizziness. He is known to myself and the hospitalist service with a brief, overnight admission last week for chest pain and near-syncope. He was seen by his mmi teacher, Dr. Thomas, who thought that his pain was likely musculoskeletal in etiology or perhaps even due to costochondritis with negative serial troponins and EKG. Near syncope was attributed to a vasovagal response. He is been doing okay at home however he continued to tell his that he still felt a bit strange or ?a little foggy? without tangible symptoms. This morning he woke up at around 06:30 to use the bathroom at which time he felt a bit dizzy. While walking to the restroom he felt increasingly dizzy to the point where he had to lay on the bathroom floor as he felt as though he was going to fall. He felt a bit lightheaded however it sounds as though he was experiencing vertigo with wooziness and an ataxic gait when he was finally able to stand up. In addition to the vertigo he was also experiencing drenching sweats, chills, and some nausea. With further questioning he admits that he has had intermittent episodes of diplopia in his left eye only, when looking leftwards. CT of the brain on arrival showed 3 foci of low attenuation left cerebellar hemisphere which could reflect areas of age-indeterminate infarction and a subsequent head and neck CTA showed small left cerebellar infarctions which could be acute, 20% left carotid bulb stenosis, and codominant vertebral arteries with severely stenotic left vertebral arterial origin. The emergency department physician spoke with neurologist, Dr. Burton, who requested that the patient be started on aspirin and clopidogrel. At the time my evaluation he is still quite nauseated from the vertigo. He denies current auditory and visual changes, focal weakness, facial droop, dysarthria, dysphagia, and focal weakness. Review of Systems Review of Systems: Twelve systems were reviewed and are negative except for as per HPI. [facility] Past Medical History Medical History Abnormal stress test (09/2017) Exercise stress was negative for ischemia. MPI showed small, mild infarct of the apical septum. Diastolic dysfunction Echocardiogram in December 2020 showed grade 1 diastolic dysfunction, mild LVH, and an EF of 60 to 65%. Essential hypertension Gout Obstructive sleep apnea on CPAP Surgical History Surgical History History of arthroscopic knee surgery History of bilateral carpal tunnel release History of hernia repair History of lumbar surgery History of repair of rotator cuff Family History Family History Sibling Cerebrovascular accident Cancer Father Heart failure Mother Cancer Social History Social History Social History: Surrogate decision maker: Kim Hartmann, . Code status: Full code. Smoking status: Former smoker Alcohol intake: current Drinks per week: 1 Substance use: never Substance use type: does not use Spiritual care concerns: No Meds Home Medications and Allergies Home Medications Medication Instructions Recorded Confirmed Type allopurinol 300 mg tablet 300 mg PO DAILY 09/03/19 08/08/21 History naproxen 500 mg tablet 500 mg PO BID tablet 09/03/19 08/08/21 History aspirin 81 mg tablet,delayed 81 mg PO HS 04/25/20 08/08/21 History release nitroglycerin 0.4 mg sublingual 0.4 mg SUBLINGUAL Q5M PRN #30 04/25/20 08/08/21 Rx tablet tablet omega-3 fatty acids 1,000 mg 1,000 mg PO DAILY 06/05/21 08/08/21 History capsule
--- NOTE | 2021-08-08 18:25 | ADMGEN ---
This patient, Navid Hartmann, was admitted to Medical Room 254-01. Patient/family oriented to hospital policies and general routines including ID bracelet, bed and alarms, visiting hours, pain management, procedures, bathroom and other care routines, personal items, smoking policy, room service/diet, and visiting hours. Information on how to activate the Rapid Response Team has been discussed. Patient/Family are encouraged to report perceived risks to care and to ask questions if they do not understand what they are told or what they should do.
[2021-08-08 20:24] LABS: Troponin I 0.015 ng/mL (0.000-0.034)
--- NOTE | 2021-08-08 22:15 | PM.EVENT ---
Event Note Event Note Event Note: Rapid response called at about 22:15. Patient had developed low chest pressure with belching, bloating, and nausea. Staff set the patient up to take his vital signs when his vertigo became significantly worse and he then began diaphoretic and he had several episodes of dry heaves. Pertinent exam findings include diaphoresis, generalized pallor, regular rate and rhythm, tenderness to deeper palpation epigastrium with distended abdomen, positive bowel sounds, and no lower extremity edema with intact peripheral pulses.EKG was ordered, reviewed, and showed no evidence of acute IN. The patient was able to get in a more comfortable position which improved his vertigo and within minutes his discomfort resolved. KUB ordered to assess given the patient's bloating and somewhat tenderness to palpation in the epigastrium. Serial troponins ordered as well however chest pain does not seem to be secondary to a cardiac etiology. Moreover I am wondering if he may have gastritis, esophagitis, or even ulcers as patient does report he is at increased bloating and belching recently. He has also noted to take naproxen 500 mg twice daily. He has been started on Protonix 40 mg IV b.i.d.. <Genet Johnson PA-C - Last Filed: 08/08/21 23:53>
[2021-08-08] MEDS: PROCHLORPERAZINE EDISYLATE 10 MG/2 ML VIAL IV PUSH (22:18)
--- NOTE | 2021-08-08 22:21 | ECG_ITS ---
Measurements Intervals [place] Rate: 64 P: 31 GA: 189 QRS: -61 QRSD: 134 T: 48 QT: 428 QTc: 442 Interpretive Statements SINUS RHYTHM NONCSPECIFIC RIGHT BUNDLE BRANCH BLOCK [120+ ms QRS DURATION, UPRIGHT V1, 40+ ms S IN I/aVL/V4/V5/V6] BASELINE ARTIFACT LEFT ANTERIOR FASCICULAR BLOCK [QRS AXIS <= -45, QR IN I, RS IN II] POSSIBLE LEFT VENTRICULAR HYPERTROPHY [VOLTAGE CRITERIA PLUS LAE OR QRS WIDENING] CANNOT RULE OUT LATERAL INFARCT, AGE INDETERMINATE COMPARED TO ECG 08/08/2021 14:01:46 HEART RATE HAS INCREASED LEFT ANTERIOR FASCICULAR BLOCK NOW PRESENT Electronically Signed On 08-09-2021 13:54:37 SSDS MK 2 ADVANCED OPERATOR by Joss Johnson M.D.
[2021-08-08 22:22] LABS: Glucose Point of Care 138 mg/dl (65-105)
[2021-08-08 22:52] LABS: Troponin I 0.016 ng/mL (0.000-0.034)
[2021-08-09] VITALS (9 sets, daily range): BP systolic 146–153; BP diastolic 65–67; PULSE 57–70; RESP 18; TEMP 36.1–36.8; O2SAT 100
[2021-08-09] MEDS: PANTOPRAZOLE SODIUM IV 40 MG VIAL IV PUSH
[2021-08-09] MEDS: ASPIRIN 81 MG ENTERIC TABLET PO ×3 (00:01→19:53)
[2021-08-09] MEDS: amLODIPine BESYLATE 5 MG TABLET PO ×2 (00:02→19:53)
[2021-08-09 01:24] LABS: Troponin I 0.017 ng/mL (0.000-0.034)
[2021-08-09 05:30] LABS: Basophils Percent Auto 0.1 % (0.2-1.2); Hematocrit 45.5 % (42.0-52.0); Immature Granulocyte Absolute 0.06 K/mm3 (0.00-0.031); Immature Granulocyte Percent A 0.5 % (0-0.5); Lymphocytes Absolute Auto 1.36 K/mm3 (0.9-3.2); Lymphocytes Percent Auto 11.8 % (18.3-44.2); Mean Platelet Volume 10.6 fl (7.4-10.4); Monocytes Absolute Auto 0.7 K/mm3 (0.1-0.6); Monocytes Percent Auto 5.8 % (2.6-8.5); Neutrophils Absolute Auto 9.4 K/mm3 (1.3-6.7); Neutrophils Percent Auto 81.8 % (45.5-73.1); Platelet Count Result 205 k/mm3 (150-375); Red Blood Count 5.17 M/mm3 (4.6-6.20); Red Cell Distribution Width 14.4 % (11.5-14.5); White Blood Count 11.5 K/mm3 (4.5-10.0)
[2021-08-09 05:42] LABS: Anion Gap 12 mmol/L (8-16); Blood Urea Nitrogen 22 mg/dL (9-20); Carbon Dioxide 26 mmol/L (22-30); Chloride 101 mmol/L (98-107); Cholesterol 151 mg/dL (0-200); Estimated CRCL calculation 56 ml/min; Estimated Glomerular Filt Rate > 60; Glucose 121 mg/dL (65-110); HDL Direct 49 mg/dL; Potassium 3.9 mmol/L (3.4-5.0); Sodium 139 mmol/L (137-145); Triglycerides 82 mg/dL (<150)
[2021-08-09 05:53] LABS: LDL Cholesterol Direct 70 mg/dL; Troponin I 0.018 ng/mL (0.000-0.034)
[2021-08-09] MEDS: PROCHLORPERAZINE EDISYLATE 10 MG/2 ML VIAL IV PUSH ×2 (06:56→10:09)
[2021-08-09] MEDS: CLOPIDOGREL BISULFATE 75 MG TABLET PO (08:20)
[2021-08-09] MEDS: MECLIZINE HCL 25 MG TABLET PO ×2 (10:09→17:40)
--- NOTE | 2021-08-09 10:40 | PCCCNOTE ---
On 08/09/21, the student, [Vika Johnson], provided care and completed [facility] documentation on this patient. I have reviewed the student's documentation and agree with the findings.
--- NOTE | 2021-08-09 12:03 | WPDNEURCNPN ---
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 at the origin, posterior circulation TIA 2 hypertension 3 obstructive sleep apnea plan at this stage is to continue aspirin and Plavix and wait for the MRI of the brain for further suggestion Consult date: 08/09/21 HPI: Navid Hartmann is a 80 year old male admitted to the hospital through the emergency room for the complaints of dizziness reportedly patient had gone to the restroom and was walking back when he started becoming dairy dizzy and laid down on the floor for [id number] without any significant improvement then the called the EMS he did not completely passed out he was given Zofran by the EMS he did not complain of any associated chest discomfort but definitely felt dizzy when he sat up and open his eyes. patient has been taking aspirin 81 mg daily with amlodipine 5 mg at night and also documented abnormal stress test in 2017 diastolic dysfunction on echocardiogram in 2020, but attention and obstructive sleep apnea in addition to multiple surgeries, he has history of years smoked 25 his smoking pack years 25 and current alcohol intake, U was contacted and no transfer was necessary. Further evaluation included negative chest x-ray 3 foci of low attenuation in the left cerebellar hemisphere of undetermined age and is small left cerebellar acute infarction with left carotid bulb 20% stenosis and severely stenotic left vertebral artery origin, patient was started on aspirin and Plavix. Routine lab was not significant and as mentioned before there was left attenuation of the cerebellar hemisphere confirmed by the CTA as well with codominant vertebral arteries and severe stenotic left vertebral artery and CTA, and at this stage MRI of the brain is pending Review of Systems Review of Systems: All systems reviewed & are unremarkable except as noted in HPI and below [facility] Past Medical History Medical History Abnormal stress test (09/2017) Exercise stress was negative for ischemia. MPI showed small, mild infarct of the apical septum. Diastolic dysfunction Echocardiogram in December 2020 showed grade 1 diastolic dysfunction, mild LVH, and an EF of 60 to 65%. Essential hypertension Gout Obstructive sleep apnea on CPAP Surgical History Surgical History History of arthroscopic knee surgery History of bilateral carpal tunnel release History of hernia repair History of lumbar surgery History of repair of rotator cuff Family History Family History Sibling Cerebrovascular accident Cancer Father Heart failure Mother Cancer Social History Social History Social History: Surrogate decision maker: Kim Hartmann, . Code status: Full code. Smoking status: Former smoker Alcohol intake: current Drinks per week: 1 Substance use: never Substance use type: does not use Spiritual care concerns: No Meds Home Medications and Allergies Home Medications Medication Instructions Recorded Confirmed Type allopurinol 300 mg tablet 300 mg PO DAILY 09/03/19 08/08/21 History naproxen 500 mg tablet 500 mg PO BID tablet 09/03/19 08/08/21 History aspirin 81 mg tablet,delayed 81 mg PO HS 04/25/20 08/08/21 History release nitroglycerin 0.4 mg sublingual 0.4 mg SUBLINGUAL Q5M PRN #30 04/25/20 08/08/21 Rx tablet tablet omega-3 fatty acids 1,000 mg 1,000 mg PO DAILY 06/05/21 08/08/21 History capsule albuterol sulfate 2 puff INHALATION Q6H PRN 08/03/21 08/08/21 History amlodipine 5 mg PO HS 08/03/21 08/08/21 History tramadol 50 mg PO HS PRN 08/03/21 08/08/21 History Allergies Allergy/AdvReac Type Severity Reaction Status Date / Time meloxicam AdvReac Palpitation Verified 08/03/21 15:12
--- NOTE | 2021-08-09 15:05 | PM.IMPN ---
Progress Note: A&P Assessment and Plan (1) Cerebrovascular accident: Code(s): I63.9 - Cerebral infarction, unspecified Status: Acute (2) Stenosis of left vertebral artery: Code(s): I65.02 - Occlusion and stenosis of left vertebral artery Status: Acute (3) Essential hypertension: Code(s): I10 - Essential (primary) hypertension Status: Acute (4) Diastolic dysfunction: Code(s): I51.89 - Other ill-defined heart diseases Status: Acute (5) Obstructive sleep apnea on CPAP: Code(s): G47.33 - Obstructive sleep apnea (adult) (pediatric); Z99.89 - Dependence on other enabling machines and devices Status: Acute Additional Plan # acute onset vertigo. CT head with 3 foci of low attenuation in the left cerebellar hemisphere which could represent is indeterminate infarction. Head and neck CTA small left cerebellar infarction which could be acute. Left carotid bulb 20% stenosis codominant vertebral arteries with severely stenotic left vertebral artery origin. His started on aspirin and Plavix for acute ischemic stroke. ER had discussed with stroke team at [facility] and has been out of the window for any acute stroke treatment. Dr. Momin has been consulted. And continue on aspirin and Plavix as ordered. Lipid profile with LDL off 70. EKG with normal sinus rhythm. Check hemoglobin A1c if not done before. MRI brain to be done today. Also start on atorvastatin For symptomatic management will give him Compazine/meclizine Other possibilities are migraine/BPPV Further stroke workup with echo. Head and neck CTA already done so will not order ultrasound carotids # hypertension: blood pressure mildly elevated allow permissive hypertension due to stroke # MARYBEL on CPAP # diastolic dysfunction # history of gout # DVT prophylaxis Lovenox # code status full code Subjective Date/time seen: 08/09/21 15:05 Interval history: HPI:This is a pleasant 80-year-old male with history of hypertension and sleep apnea who presented to the emergency department from home for evaluation of dizziness. He is known to myself and the hospitalist service with a brief, overnight admission last week for chest pain and near-syncope. He was seen by his engineering lab technician, Dr. Thomas, who thought that his pain was likely musculoskeletal in etiology or perhaps even due to costochondritis with negative serial troponins and EKG. Near syncope was attributed to a vasovagal response. He is been doing okay at home however he continued to tell his that he still felt a bit strange or ?a little foggy? without tangible symptoms. This morning he woke up at around 06:30 to use the bathroom at which time he felt a bit dizzy. While walking to the restroom he felt increasingly dizzy to the point where he had to lay on the bathroom floor as he felt as though he was going to fall. He felt a bit lightheaded however it sounds as though he was experiencing vertigo with wooziness and an ataxic gait when he was finally able to stand up. In addition to the vertigo he was also experiencing drenching sweats, chills, and some nausea. With further questioning he admits that he has had intermittent episodes of diplopia in his left eye only, when looking leftwards. CT of the brain on arrival showed 3 foci of low attenuation left cerebellar hemisphere which could reflect areas of age-indeterminate infarction and a subsequent head and neck CTA showed small left cerebellar infarctions which could be acute, 20% left carotid bulb stenosis, and codominant vertebral arteries with severely stenotic left vertebral arterial origin. The emergency department physician spoke with neurologist, Dr. Burton, who requested that the patient be started on aspirin and clopidogrel. At the time my evaluation he is still quite nauseated from the vertigo. He denies current auditory and visual changes, focal weakness, facial droop, dysarthria, dysphagia, and focal weakness.
[2021-08-09] MEDS: SODIUM CHLORIDE 0.9% IV 1,000 ML 60 ML IV CONT (16:06)
[2021-08-09 16:13] LABS: Hemoglobin A1C 5.3 % (<5.7)
[2021-08-09] MEDS: ATORVASTATIN 20 MG TABLET PO (19:53)
--- NOTE | 2021-08-09 21:45 | PC.NURSE ---
Pt states SCDs caused him to feel severe dizziness and requested they be removed. Pt educated again on SCD purpose and is still requesting they be removed, pt agrees to try wearing them later on in the night.
--- NOTE | 2021-08-09 21:54 | ECHO_ITS ---
Patient Info Name: Navid Hartmann Age: 80 years : 1940 Gender: Male Ht: 72 in Wt: 213 lbs BSA: 2.23 m2 HR: 56 bpm BP: 150 / 67 mmHg Technical Quality: Good Exam Date: 08/09/2021 1:34 PM Exam Location: [facility] Patient Status: Outpatient Admit Date: 08/08/2021 Staff Ordering Physician: Genet Johnson PA-C Literacy Coordinator: Fly Couch RDCS, RT Attending Provider: Alphonso Tierney MD Referring Physician: Alex BALLARD; Exam Type: CA echo doppler w bubble study Study Info Indications I63.219 - Cerebral infarction due to unspecified occlusion or stenosis of unspecified vertebral arteries Complete two-dimentional, color flow and Doppler transthoracic echocardiogram is performed with agitated saline and with contrast to opacify the left ventricle and to improve the delineation of the left ventricle endocardial borders. Summary 1. Left ventricular chamber dimension is normal. 2. Left ventricular systolic function is normal, estimated at 60-65%. 3. There is moderately increased left ventricular wall thickness. 4. The left ventricular diastolic function is grade I diastolic dysfunction. 5. E/e' 10 is mildly elevated. 6. Global longitudinal strain is abnormal at -15.5%. 7. There is trace aortic valve regurgitation. 8. There is trace tricuspid valve regurgitation. 9. No pulmonary hypertension, estimated pulmonary arterial systolic pressure is 34 mmHg. Left Ventricle E/e' 10 is mildly elevated. Global longitudinal strain is abnormal at -15.5%. Left ventricular chamber dimension is normal. Left ventricular systolic function is normal, estimated at 60-65%. There is moderately increased left ventricular wall thickness. The left ventricular diastolic function is grade I diastolic dysfunction. Right Ventricle Right ventricular chamber dimension is normal. Right ventricular systolic function is normal and with normal TAPSSE 2.0 cm. Left Atria Left atrial chamber dimension is normal. Right Atria Right atrial chamber dimension is normal. Atrial Septum Agitated saline injection with and without valsalva maneuver opacified right side cardiac chambers without shunt to left side cardiac chambers. Intact interatrial septum visualized by agitated saline imaging. Aortic Valve The aortic valve is trileaflet. There is no aortic valve stenosis. There is trace aortic valve regurgitation. Pulmonic Valve There is no pulmonic regurgitation. Mitral Valve There is no mitral valve stenosis. There is no mitral valve regurgitation. Tricuspid Valve There is trace tricuspid valve regurgitation. No pulmonary hypertension, estimated pulmonary arterial systolic pressure is 34 mmHg. Pericardium/Pleural There is no pericardial effusion. Inferior Vena Cava Normal inferior vena cava with >50% collapse upon inspiration consistent with normal right atrial pressure, 5 mmHg. Aorta The aortic root size at the sinus of Valsalva is normal. Left Ventricular Outflow Tract Name Value Normal LVOT 2D LVOT Diameter 2.0 cm LVOT Doppler LVOT Peak Gradient 4 mmHg LVOT Mean Gr
[2021-08-10] VITALS (14 sets, daily range): BP systolic 108–166; BP diastolic 53–72; PULSE 59–98; RESP 18–21; TEMP 35.9–36.9; O2SAT 94–100
[2021-08-10 05:29] LABS: Basophils Percent Auto 0.2 % (0.2-1.2); Eosinophils Absolute Auto 0.1 K/mm3 (0-0.3); Eosinophils Percent Auto 0.5 % (0-4.4); Hematocrit 44.1 % (42.0-52.0); Hemoglobin 14.5 g/dL (14.0-18.0); Immature Granulocyte Absolute 0.03 K/mm3 (0.00-0.031); Immature Granulocyte Percent A 0.3 % (0-0.5); Lymphocytes Absolute Auto 2.86 K/mm3 (0.9-3.2); Lymphocytes Percent Auto 27.7 % (18.3-44.2); Mean Corpuscular HGB Conc 32.9 g/dl (32-36); Mean Corpuscular Volume 88.2 fl (80-100); Mean Platelet Volume 10.4 fl (7.4-10.4); Monocytes Absolute Auto 0.8 K/mm3 (0.1-0.6); Monocytes Percent Auto 7.8 % (2.6-8.5); Neutrophils Absolute Auto 6.6 K/mm3 (1.3-6.7); Neutrophils Percent Auto 63.5 % (45.5-73.1); Platelet Count Result 204 k/mm3 (150-375); Red Cell Distribution Width 14.5 % (11.5-14.5); White Blood Count 10.3 K/mm3 (4.5-10.0)
[2021-08-10 05:40] LABS: Alanine Aminotransferase 26 U/L (4-50); Albumin Level 4.2 g/dL (3.5-5.1); Alkaline Phosphatase 73 U/L (38-126); Anion Gap 6 mmol/L (8-16); Aspartate Amino Transferase 31 U/L (17-59); Bilirubin,Total 0.8 mg/dL (0.2-1.3); Blood Urea Nitrogen 22 mg/dL (9-20); Carbon Dioxide 29 mmol/L (22-30); Chloride 104 mmol/L (98-107); Estimated CRCL calculation 56 ml/min; Estimated Glomerular Filt Rate > 60; Glucose 111 mg/dL (65-110); Potassium 3.8 mmol/L (3.4-5.0); Sodium 139 mmol/L (137-145)
[2021-08-10] MEDS: allopurinoL 300 MG TABLET PO (08:37)
[2021-08-10] MEDS: ENOXAPARIN 40 MG/0.4 ML SYRINGE SUB-Q (08:37)
[2021-08-10] MEDS: OMEGA 3 POLYUNSAT FATTY ACIDS 1 GM CAP PO (08:37)
[2021-08-10] MEDS: CLOPIDOGREL BISULFATE 75 MG TABLET PO (09:26)
--- NOTE | 2021-08-10 11:53 | PCCCNOTE ---
On 08/10/21, the student, [Vika Johnson], provided care and completed [facility] documentation on this patient. I have reviewed the student's documentation and agree with the findings.
--- NOTE | 2021-08-10 13:19 | PM.IMPN ---
Progress Note: A&P Assessment and Plan (1) Cerebrovascular accident: Code(s): I63.9 - Cerebral infarction, unspecified Status: Acute (2) Stenosis of left vertebral artery: Code(s): I65.02 - Occlusion and stenosis of left vertebral artery Status: Acute (3) Essential hypertension: Code(s): I10 - Essential (primary) hypertension Status: Acute (4) Diastolic dysfunction: Code(s): I51.89 - Other ill-defined heart diseases Status: Acute (5) Obstructive sleep apnea on CPAP: Code(s): G47.33 - Obstructive sleep apnea (adult) (pediatric); Z99.89 - Dependence on other enabling machines and devices Status: Acute Additional Plan # acute onset vertigo. CT head with 3 foci of low attenuation in the left cerebellar hemisphere which could represent is indeterminate infarction. Head and neck CTA small left cerebellar infarction which could be acute. Left carotid bulb 20% stenosis codominant vertebral arteries with severely stenotic left vertebral artery origin. MRI with bilateral cerebellar stroke. Started on aspirin and Plavix. Add atorvastatin 10 mg bedtime. A1c is normal Lipid profile LDL at 70 Symptom management with meclizine p.r.n. Left vertebral artery stenosis present Discussed findings with Dr. Momin gentle IV fluid and watch for any worsening of cerebellar edema # left vertebral artery stenosis may need anticoagulation for Dr. Momin upon follow-up # hypertension: blood pressure mildly elevated allow permissive hypertension due to stroke # MARYBEL on CPAP # diastolic dysfunction # history of gout # DVT prophylaxis Lovenox # code status full code Subjective Date/time seen: 08/10/21 13:19 Interval history: HPI:This is a pleasant 80-year-old male with history of hypertension and sleep apnea who presented to the emergency department from home for evaluation of dizziness. He is known to myself and the hospitalist service with a brief, overnight admission last week for chest pain and near-syncope. He was seen by his jumpbasting facing baster, Dr. Thomas, who thought that his pain was likely musculoskeletal in etiology or perhaps even due to costochondritis with negative serial troponins and EKG. Near syncope was attributed to a vasovagal response. He is been doing okay at home however he continued to tell his that he still felt a bit strange or ?a little foggy? without tangible symptoms. This morning he woke up at around 06:30 to use the bathroom at which time he felt a bit dizzy. While walking to the restroom he felt increasingly dizzy to the point where he had to lay on the bathroom floor as he felt as though he was going to fall. He felt a bit lightheaded however it sounds as though he was experiencing vertigo with wooziness and an ataxic gait when he was finally able to stand up. In addition to the vertigo he was also experiencing drenching sweats, chills, and some nausea. With further questioning he admits that he has had intermittent episodes of diplopia in his left eye only, when looking leftwards. CT of the brain on arrival showed 3 foci of low attenuation left cerebellar hemisphere which could reflect areas of age-indeterminate infarction and a subsequent head and neck CTA showed small left cerebellar infarctions which could be acute, 20% left carotid bulb stenosis, and codominant vertebral arteries with severely stenotic left vertebral arterial origin. The emergency department physician spoke with neurologist, Dr. Burton, who requested that the patient be started on aspirin and clopidogrel. At the time my evaluation he is still quite nauseated from the vertigo. He denies current auditory and visual changes, focal weakness, facial droop, dysarthria, dysphagia, and focal weakness. 08/09/2021 events noted from last night. Still feels quite dizzy whenever he opens his eyes. Reports diplopia whenever he sees through both eyes and keeps the eye closed during my evaluation. He gets diplopia whenever he
[2021-08-10] MEDS: SODIUM CHLORIDE 0.9% IV 1,000 ML 60 ML IV CONT (21:10)
[2021-08-10] MEDS: ATORVASTATIN 20 MG TABLET PO (21:10)
[2021-08-10] MEDS: amLODIPine BESYLATE 5 MG TABLET PO (21:10)
[2021-08-10] MEDS: ASPIRIN 81 MG ENTERIC TABLET PO (21:10)
[2021-08-11] VITALS (9 sets, daily range): BP systolic 133–166; BP diastolic 69–78; PULSE 61–74; RESP 19–20; TEMP 36.1–36.4; O2SAT 98–99
[2021-08-11 05:16] LABS: Basophils Percent Auto 0.4 % (0.2-1.2); Eosinophils Absolute Auto 0.1 K/mm3 (0-0.3); Eosinophils Percent Auto 1.8 % (0-4.4); Hematocrit 42.5 % (42.0-52.0); Hemoglobin 14.1 g/dL (14.0-18.0); Immature Granulocyte Absolute 0.03 K/mm3 (0.00-0.031); Immature Granulocyte Percent A 0.4 % (0-0.5); Mean Corpuscular HGB Conc 33.2 g/dl (32-36); Mean Corpuscular Hemoglobin 28.5 pg (26-34); Mean Platelet Volume 10.8 fl (7.4-10.4); Monocytes Absolute Auto 0.8 K/mm3 (0.1-0.6); Monocytes Percent Auto 9.9 % (2.6-8.5); Neutrophils Absolute Auto 4.3 K/mm3 (1.3-6.7); Neutrophils Percent Auto 53.5 % (45.5-73.1); Platelet Count Result 188 k/mm3 (150-375); Red Blood Count 4.94 M/mm3 (4.6-6.20); Red Cell Distribution Width 14.2 % (11.5-14.5); White Blood Count 7.9 K/mm3 (4.5-10.0)
[2021-08-11 05:26] LABS: Alanine Aminotransferase 27 U/L (4-50); Albumin Level 3.8 g/dL (3.5-5.1); Alkaline Phosphatase 63 U/L (38-126); Anion Gap 5 mmol/L (8-16); Aspartate Amino Transferase 35 U/L (17-59); Bilirubin,Total 0.7 mg/dL (0.2-1.3); Blood Urea Nitrogen 23 mg/dL (9-20); Calcium 8.3 mg/dL (8.4-10.2); Carbon Dioxide 26 mmol/L (22-30); Chloride 107 mmol/L (98-107); Estimated CRCL calculation 56 ml/min; Estimated Glomerular Filt Rate > 60; Glucose 100 mg/dL (65-110); Potassium 3.7 mmol/L (3.4-5.0); Sodium 138 mmol/L (137-145)
[2021-08-11] MEDS: CLOPIDOGREL BISULFATE 75 MG TABLET PO (09:02)
[2021-08-11] MEDS: ENOXAPARIN 40 MG/0.4 ML SYRINGE SUB-Q (09:02)
[2021-08-11] MEDS: allopurinoL 300 MG TABLET PO (09:03)
[2021-08-11] MEDS: OMEGA 3 POLYUNSAT FATTY ACIDS 1 GM CAP PO (09:03)
--- NOTE | 2021-08-11 09:32 | PM.IMPN ---
Progress Note: A&P Assessment and Plan (1) Cerebrovascular accident: Code(s): I63.9 - Cerebral infarction, unspecified Status: Acute (2) Stenosis of left vertebral artery: Code(s): I65.02 - Occlusion and stenosis of left vertebral artery Status: Acute (3) Essential hypertension: Code(s): I10 - Essential (primary) hypertension Status: Acute (4) Diastolic dysfunction: Code(s): I51.89 - Other ill-defined heart diseases Status: Acute (5) Obstructive sleep apnea on CPAP: Code(s): G47.33 - Obstructive sleep apnea (adult) (pediatric); Z99.89 - Dependence on other enabling machines and devices Status: Acute Additional Plan # acute onset vertigo. Diagnosed to be related to acute bilateral cerebellar stroke. CT head with 3 foci of low attenuation in the left cerebellar hemisphere which could represent is indeterminate infarction. Head and neck CTA small left cerebellar infarction which could be acute. Left carotid bulb 20% stenosis codominant vertebral arteries with severely stenotic left vertebral artery origin. MRI with bilateral cerebellar stroke. Started on aspirin and Plavix. Add atorvastatin 10 mg bedtime. A1c is normal Lipid profile LDL at 70 Symptom management with meclizine p.r.n. Left vertebral artery stenosis present Discussed findings with Dr. Momin gentle IV fluid and watch for any worsening of cerebellar edema Continue to monitor for any signs of increased intracranial pressure particularly due to his diagnosis of bilateral cerebellar infarction. Typically will observe patient for any signs for at least 3-4 days in house. Anticipate him going home Friday no further symptoms develop. # left vertebral artery stenosis may need anticoagulation for Dr. Momin upon follow-up. He will also need to follow-up with neuro mold polisher for possible candidancy for intervention in his left vertebral artery stenosis. # hypertension: blood pressure mildly elevated allow permissive hypertension due to stroke # MARYBEL on CPAP # diastolic dysfunction # history of gout # DVT prophylaxis Lovenox # code status full code Subjective Date/time seen: 08/11/21 09:32 Interval history: HPI:This is a pleasant 80-year-old male with history of hypertension and sleep apnea who presented to the emergency department from home for evaluation of dizziness. He is known to myself and the hospitalist service with a brief, overnight admission last week for chest pain and near-syncope. He was seen by his hospital internship, Dr. Thomas, who thought that his pain was likely musculoskeletal in etiology or perhaps even due to costochondritis with negative serial troponins and EKG. Near syncope was attributed to a vasovagal response. He is been doing okay at home however he continued to tell his that he still felt a bit strange or ?a little foggy? without tangible symptoms. This morning he woke up at around 06:30 to use the bathroom at which time he felt a bit dizzy. While walking to the restroom he felt increasingly dizzy to the point where he had to lay on the bathroom floor as he felt as though he was going to fall. He felt a bit lightheaded however it sounds as though he was experiencing vertigo with wooziness and an ataxic gait when he was finally able to stand up. In addition to the vertigo he was also experiencing drenching sweats, chills, and some nausea. With further questioning he admits that he has had intermittent episodes of diplopia in his left eye only, when looking leftwards. CT of the brain on arrival showed 3 foci of low attenuation left cerebellar hemisphere which could reflect areas of age-indeterminate infarction and a subsequent head and neck CTA showed small left cerebellar infarctions which could be acute, 20% left carotid bulb stenosis, and codominant vertebral arteries with severely stenotic left vertebral arterial origin. The emergency department physician spoke with neurologist, Dr. Burton, who
[2021-08-11] MEDS: SODIUM CHLORIDE 0.9% IV 1,000 ML 60 ML IV CONT (16:59)
[2021-08-11] MEDS: ASPIRIN 81 MG ENTERIC TABLET PO (21:00)
[2021-08-11] MEDS: amLODIPine BESYLATE 5 MG TABLET PO (21:00)
[2021-08-11] MEDS: ATORVASTATIN 20 MG TABLET PO (21:00)
[2021-08-12] VITALS (10 sets, daily range): BP systolic 139–172; BP diastolic 67–83; PULSE 55–80; RESP 16–20; TEMP 36.3–36.6; O2SAT 98–100
--- NOTE | 2021-08-12 03:03 | PC.NURSE ---
Daylight Savings Time For Daylight Savings Time Ending in the Fall - Clocks are moved back. For Daylight Savings Time Beginning in the Spring - Clocks are moved ahead. For [facility], the time of change occurs at 0200 hrs. Time is taken from the server systems administrator. This entry on the patient's chart recognizes the change in time reflected during documentation. Example: 2 entries for vital signs may be charted for 0200 hrs.
[2021-08-12] MEDS: CLOPIDOGREL BISULFATE 75 MG TABLET PO (08:33)
[2021-08-12] MEDS: ENOXAPARIN 40 MG/0.4 ML SYRINGE SUB-Q (08:33)
[2021-08-12] MEDS: allopurinoL 300 MG TABLET PO (08:33)
[2021-08-12] MEDS: OMEGA 3 POLYUNSAT FATTY ACIDS 1 GM CAP PO (08:33)
[2021-08-12] MEDS: SODIUM CHLORIDE 0.9% IV 1,000 ML 60 ML IV CONT (10:24)
--- NOTE | 2021-08-12 11:39 | PM.IMPN ---
Progress Note: A&P Assessment and Plan (1) Cerebrovascular accident: Qualifiers: CVA mechanism: unspecified Qualified Code(s): I63.9 - Cerebral infarction, unspecified Code(s): I63.9 - Cerebral infarction, unspecified Status: Acute Assessment and Plan: - DAPT therapy - Statin therapy - LDL is 70, A1C is normal - Current NIH score is 0. (2) Stenosis of left vertebral artery: Code(s): I65.02 - Occlusion and stenosis of left vertebral artery Status: Acute Assessment and Plan: - Will need follow up with [facility] to establish candidacy for possible intervention. - Will follow up with Dr. Burton as outpatient to assess for further need for anticoagulation. - No bruit able to be auscultated. (3) Essential hypertension: Code(s): I10 - Essential (primary) hypertension Status: Acute Assessment and Plan: - BP is stable with allowing permissive HTN secondary to CVA. (4) Diastolic dysfunction: Code(s): I51.89 - Other ill-defined heart diseases Status: Chronic Assessment and Plan: - Monitor and have pt. follow up as outpatient. (5) Obstructive sleep apnea on CPAP: Code(s): G47.33 - Obstructive sleep apnea (adult) (pediatric); Z99.89 - Dependence on other enabling machines and devices Status: Chronic Assessment and Plan: - Compliant with CPAP therapy. Time Spent With Patient Time with patient: 15 - 25 minutes Subjective Date/time seen: 08/12/21 0750 This pt. was examined at the bedside in interval assessment of his having an acute CVA. He is awake, alert and feeling OK today. He has no pain and he has no new issues to report such as CP, Dyspnea, N/V. He said he had a little more wooziness this morning, and he is really anxious that he is going to have another stroke. His MRI from this resulted and shows acute infarcts in the bilateral cerebellum, old lacunar infarcts in the right lentiform nucleus and likely small vessel ischemic disease. He has been started on ASA and Plavix as well as statin therapy as evidence based practice recommends. He has been participating well with therapy and has will have home health once discharged home which will likely be tomorrow. His calculated CHADS score for me is high risk at a 4. He continues on Meclizine for his dizziness. Current NIH score is a 0. Review of Systems Review of Systems: A full 12 point ROS was performed and is otherwise negative with exception of what is noted in HPI. All systems reviewed & are unremarkable except as noted in HPI and below Exam Narrative: General: No acute distress comfortable HEENT: Normocephalic, atraumatic. PERRL, EOMI. Sclerae anicteric. Oral mucosa moist. Neck: Supple. No obvious bruits or JVD Respiratory: Lungs are clear to auscultation bilaterally. No respiratory distress Cardiovascular: Regular rate and rhythm with S1-S2. Gastrointestinal: Abdomen is soft, nontender, and nondistended with positive bowel sounds. Skin: Warm and dry. No rash or lesions on limited exam. Extremities: No cyanosis, clubbing, or edema. Radial and pedal pulses intact. Neurological: Alert and oriented x4. Cranial nerves 2-12 are grossly intact. Speech is clear. No facial asymmetry. No gross focal deficits. NIH 0. Psychiatric: Pleasant and cooperative with appropriate mood and affect. Objective Data Vital Signs Vital Signs: Vital Signs - 24 hr 08/11/21 12:00 08/11/21 14:00 08/11/21 16:00 Temperature 97.3 F L Pulse Rate 72 71 61 Respiratory Rate 19 Blood Pressure 150/69 H Pulse Oximetry 99 08/11/21 20:00 08/11/21 22:00 08/12/21 00:00 Temperature 97.0 F L Pulse Rate 62 63 60 Respiratory Rate 20 Blood Pressure 166/75 H Pulse Oximetry 99 08/12/21 04:00 08/12/21 06:00 08/12/21 08:04 Temperature 97.3 F L Pulse Rate 80 69 68 Respiratory Rate 20 Blood Pressure 162/67 H Pulse Oximetry 99 08/12/21 08:3
[2021-08-12] MEDS: amLODIPine BESYLATE 5 MG TABLET PO (20:47)
[2021-08-12] MEDS: ATORVASTATIN 20 MG TABLET PO (20:47)
[2021-08-12] MEDS: ASPIRIN 81 MG ENTERIC TABLET PO (20:47)
[2021-08-13] VITALS: PULSE 68
[2021-08-13] MEDS: SODIUM CHLORIDE 0.9% IV 1,000 ML 60 ML IV CONT (02:54)
[2021-08-13 04:00] VITALS: PULSE 54
[2021-08-13 04:19] VITALS: BP 150/64; PULSE 67; RESP 16; TEMP 36.6; O2SAT 98
[2021-08-13 05:35] LABS: Basophils Percent Auto 0.3 % (0.2-1.2); Eosinophils Absolute Auto 0.2 K/mm3 (0-0.3); Eosinophils Percent Auto 2.8 % (0-4.4); Hematocrit 39.1 % (42.0-52.0); Hemoglobin 12.7 g/dL (14.0-18.0); Immature Granulocyte Absolute 0.02 K/mm3 (0.00-0.031); Immature Granulocyte Percent A 0.3 % (0-0.5); Lymphocytes Absolute Auto 2.23 K/mm3 (0.9-3.2); Lymphocytes Percent Auto 28.1 % (18.3-44.2); Mean Corpuscular HGB Conc 32.5 g/dl (32-36); Mean Corpuscular Hemoglobin 28.7 pg (26-34); Mean Corpuscular Volume 88.5 fl (80-100); Mean Platelet Volume 10.6 fl (7.4-10.4); Monocytes Absolute Auto 0.8 K/mm3 (0.1-0.6); Monocytes Percent Auto 10.2 % (2.6-8.5); Neutrophils Absolute Auto 4.6 K/mm3 (1.3-6.7); Neutrophils Percent Auto 58.3 % (45.5-73.1); Platelet Count Result 160 k/mm3 (150-375); Red Blood Count 4.42 M/mm3 (4.6-6.20); Red Cell Distribution Width 14.2 % (11.5-14.5); White Blood Count 7.9 K/mm3 (4.5-10.0)
[2021-08-13 05:59] LABS: Alanine Aminotransferase 26 U/L (4-50); Albumin Level 3.6 g/dL (3.5-5.1); Alkaline Phosphatase 70 U/L (38-126); Anion Gap 5 mmol/L (8-16); Aspartate Amino Transferase 26 U/L (17-59); Bilirubin,Total 0.7 mg/dL (0.2-1.3); Blood Urea Nitrogen 11 mg/dL (9-20); Calcium 8.2 mg/dL (8.4-10.2); Carbon Dioxide 29 mmol/L (22-30); Chloride 105 mmol/L (98-107); Estimated CRCL calculation 70 ml/min; Estimated Glomerular Filt Rate > 60; Glucose 95 mg/dL (65-110); Magnesium 1.9 mg/dL (1.6-2.3); Potassium 3.3 mmol/L (3.4-5.0); Sodium 139 mmol/L (137-145)
--- NOTE | 2021-08-13 07:58 | PM.DS ---
DS: Admitting Diagnosis Discharge Date 08/13/2021 Admitting Diagnosis Cerebral Vascular Accident DS: Discharge Diagnosis Discharge Diagnosis (1) Cerebrovascular accident: Qualifiers: CVA mechanism: unspecified Qualified Code(s): I63.9 - Cerebral infarction, unspecified Code(s): I63.9 - Cerebral infarction, unspecified Status: Acute Assessment and Plan: - DAPT therapy - Statin therapy - LDL is 70, A1C is normal - Current NIH score is 0. (2) Stenosis of left vertebral artery: Code(s): I65.02 - Occlusion and stenosis of left vertebral artery Status: Acute Assessment and Plan: - Will need follow up with [facility]Foot[employer] Sales Representative to establish candidacy for possible intervention. - Will follow up with Dr. Burton as outpatient to assess for further need for anticoagulation. - No bruit able to be auscultated. (3) Essential hypertension: Code(s): I10 - Essential (primary) hypertension Status: Acute Assessment and Plan: - BP is stable. - Continue home medications. (4) Diastolic dysfunction: Code(s): I51.89 - Other ill-defined heart diseases Status: Chronic Assessment and Plan: - Monitor and have pt. follow up as outpatient. (5) Obstructive sleep apnea on CPAP: Code(s): G47.33 - Obstructive sleep apnea (adult) (pediatric); Z99.89 - Dependence on other enabling machines and devices Status: Chronic Assessment and Plan: - Compliant with CPAP therapy. DS: Summary Hospital Course Reason for hospitalization: Stroke like symptoms Hospital Course: This very pleasant 80 year old male patient with significant PMH of HTN, MARYBEL, and Gout presented to the ER on 08/08/2021 with complaints of persistent wooziness and dizziness. It was worse with changing positions. Upon ambulating to the restroom on the day of admission, his vision became double and he also felt unsteady, requiring him to lay on the bathroom floor. He eventually was able to make it back to his bed and he had EMS bring him to the hospital. Pt. endorsed an episode approximately one week prior where he endorsed a near syncopal episode that was worked up by Cardiology and it was felt that it was likely due to a vasovagal response at that time. Pt. was thoroughly evaluated here upon admission and was found to have had an acute CVA that showed acute infarcts in the cerebellum bilaterally, with an old lacunar infarct in the right lentiform nucleus. In addition, the CTA of head and neck shows that there is a small left cerebellar infartion that is likely acute and left carotid bulb stenosis of 20% with codominant vertebral arteries with severely stenotic left vertebral artery origin. He has been started on DAPT therap with a CHADS2-Vasc score of 4, and also a statin. He has progressed well with PT and has no residual deficits. His dizziness has acutely resolved. He will follow up with Dr. Burton as outpatient and will also need referral to Neuro-interventionalist for evaluation of the stenosis of the left vertebral artery when he follows up with Dr. Burton. Status at Discharge Functional status at discharge: independent ambulation Overall status at discharge: patient is back to baseline Time Spent with Patient Time attestation: Total time spent providing and/or coordinating discharge services: 40 minutes Time spent: Greater than 30 minutes Exam Narrative: Narrative: General: No acute distress comfortable HEENT: Normocephalic, atraumatic. PERRL, EOMI. Sclerae anicteric. Oral mucosa moist. Neck: Supple. No obvious bruits or JVD Respiratory: Lungs are clear to auscultation bilaterally. No respiratory distress Cardiovascular: Regular rate and rhythm with S1-S2. Gastrointestinal: Abdomen is soft, nontender, and nondistended with positive bowel sounds. Skin: Warm and dry. No rash or lesions on limited exam. Extremities: No cyanosis, clubbing, or edema. Radial and pedal pulses in
[2021-08-13 08:00] VITALS: PULSE 67; PULSE 72; RESP 16; O2SAT 98
[2021-08-13] MEDS: CLOPIDOGREL BISULFATE 75 MG TABLET PO (08:25)
[2021-08-13] MEDS: allopurinoL 300 MG TABLET PO (08:25)
[2021-08-13] MEDS: POTASSIUM CHLORIDE 20 MEQ PACKET (FOR LIQUID) 40 MEQ PO (08:25)
[2021-08-13] MEDS: OMEGA 3 POLYUNSAT FATTY ACIDS 1 GM CAP PO (08:25)
[2021-08-13] MEDS: ENOXAPARIN 40 MG/0.4 ML SYRINGE SUB-Q (08:25)
== END 2021-08-13 11:44 | disposition home health service (06) | DRG 66 ==
LOC: ANHED 16:47 → ANH2MED 17:38
PROVIDERS: Physician Assistant; Admitting Provider Internal Medicine; Emergency Provider Emergency Medicine; PCP Family Medicine Sports Medicine; Visit Provider Nurse Practitioner Adult Health
DX: I63.212 Cerebral infarction due to unspecified occlusion or stenosis of left vertebral artery (principal); R29.700 NIHSS score 0; I11.9 Hypertensive heart disease without heart failure; H53.2 Diplopia; R42 Dizziness and giddiness; G47.33 Obstructive sleep apnea (adult) (pediatric); M10.9 Gout, unspecified; R07.89 Other chest pain; Z99.89 Dependence on other enabling machines and devices; Z86.73 Personal history of transient ischemic attack (TIA), and cerebral infarction without residual deficits; Z87.891 Personal history of nicotine dependence
CPT/HCPCS: 36415; 70450; 70496; 70498; 70553; 71046; 74018; 80048; 80053; 80061; 81001; 82948; 83036; 83735; 84484; 85025; 85610; 85730; 93005; 93306; 96361; 96372; 96374; 96375; 96376; 97110; 97112; 97116; 97161; 97165; 97530; 97535; 99285; A9270; A9577; C9113; G0378; J0780; J1650; J3360; J7030; Q9967

== ENCOUNTER 2023-03-25 12:46 | Outpatient (CLI) | payer MEDICARE, SELFPAY ==
--- NOTE | ~2023-03-25 | CT_ITS ---
EXAMINATION: CT abdomen pelvis wo/w con DATE: 03/25/2023 14:16 INDICATION: Microhematuria. TECHNIQUE: Computed tomography (CT) of the abdomen and pelvis was performed without and with intraven ous contrast using a total of 130 mL Omnipaque-350 intravenous contrast with a double-bolus technique for simultaneous opacification of the renal parenchyma and renal collecting system. Automated exposu re control and iterative reconstruction technique were employed. The dose-length product was 2180.53 mGy-cm. COMPARISON: CT abdomen and pelvis 03/02/2015 FINDINGS: The visualized portions of the lung bases demonstrate mild atelectasis and mild chronic interstitial lung disease. No pleural effusion. The heart size is normal. No pericardial effusion. There are coron zhen artery calcifications. There is a 5 mm cyst in the liver. There is a gallstone in the gallbladder , which is normal in size. The spleen, pancreas, and adrenal glands are normal. There are cysts in th e kidneys measuring up to 8.5 cm on the right. There is no urolithiasis. The ureters are well opacifi ed and are normal. The prostate is mildly enlarged. The bladder is not well distended. There is diffu se bladder wall thickening. There is prominent fat in the inguinal canals that may be hernias. There is diverticulosis of the colon without evidence of diverticulitis. There are no dilated loops of trang l. The appendix is normal. There is calcified atherosclerosis of the aorta and many of the other francisco dori. There are bridging endplate osteophytes at multiple levels in the spine, consistent with diffus e idiopathic skeletal hyperostosis (DISH). There is moderate lumbar spondylosis. IMPRESSION: 1. Diffuse bladder wall thickening, likely secondary to chronic outlet obstruction from the mildly en larged prostate. Urothelial carcinoma cannot be excluded. Reviewed, dictated and finalized at location E. IMPRESSION: 1. Diffuse bladder wall thickening, likely secondary to chronic outlet obstruct ion from the mildly enlarged prostate. Urothelial carcinoma cannot be excluded.
[2023-03-25 14:00] LABS: Estimated Glomerular Filt Rate > 60
== END 2023-03-25 12:47 | disposition home or self-care (01) ==
PROVIDERS: PCP Family Medicine Sports Medicine; Visit Provider Urology
DX: R31.29 Other microscopic hematuria (principal); N32.89 Other specified disorders of bladder
CPT/HCPCS: 74178; Q9967

== ENCOUNTER 2023-04-03 01:11 | Day surgery (SDC) | payer MEDICARE, SELFPAY ==
[2023-03-27 13:58] VITALS: BMI 30.6
--- NOTE | 2023-03-27 13:59 | PC.NURSE ---
Report to the Outpatient Waiting Room, entrance under the green pavilion located off [facility], at time _0615_ on date _[id number]_. Planned Procedure Time: _0815_. Time changes happen often and if your time is changed the preop area will call you the afternoon before. - You and your visitor will be asked to self-screen and do not enter if you have any COVID symptoms. - A mask is optional within the hospital at this time. Patients may have clear liquids (water, carbonated beverages, clear teas, apple juice) until 3 hours prior to surgery with a maximum of 20 ounces. - No food from midnight until time of surgery Take the following medications with a SIP of water the morning of surgery: Amlodipine DO NOT STOP ANY OF YOUR OTHER PRESCRIPTION MEDICATIONS PRIOR TO SURGERY ?EXCEPT THE FOLLOWING Medications to discontinue per physician Fish oil Date to take last [id number] Please no make-up, nail wolof, hairspray, perfume, deodorant, or body powder the day of surgery. No jewelry (including any body piercings) or valuables the day of surgery, leave them at home. Please take a shower or bath the night before, or the morning of, surgery with an antibacterial soap. Wear comfortable, loose fitting clothing. - Jewelry must be removed prior to entering the operating room. Rings and piercings that are not removed may be cut off. - The hospital will not accept responsibility for valuables. - Please leave all valuables, including medications, at home the day of surgery. If you are going home after surgery, a licensed long haul truck driver must drive you home. - NO public transportation without another adult if you receive anesthesia. - We recommend that an adult stay with you for 24 hours following discharge. - We also recommend that you do not drive, make important decision, drink alcoholic beverages, or take any drugs that were not prescribed by your health care provider for at least 24 hours after your discharge time. Follow any additional instructions given to you from your surgeon. If you or anyone in your household have experienced Covid symptoms in the past week, please notify your surgeon or the nurse liaison at the phone number below for possible testing. Telephone instructions given to __Jean-Pierre and Kim___and asked if any additional questions and then verbalized understanding. Patient advised to call surgeon office or pre surgery nurse liaison [phone] if any additional questions.
--- NOTE | 2023-04-03 06:24 | WPDHPUPDATE1 ---
History and Physical Update Update Date/Time: 04/03/23 06:24 History and Physical has been reviewed, including an updated exam of the patient. There are NO changes in the patient's condition. Risks, benefits, and alternatives have been discussed and questions answered. Patient agrees to proceed with procedure.
[2023-04-03 06:30] VITALS: BP 138/56; PULSE 65; RESP 20; TEMP 36.2; O2SAT 98
[2023-04-03] MEDS: LACTATED RINGERS 1,000 ML 30 ML IV CONT (07:07)
--- NOTE | 2023-04-03 07:27 | WPDANESEPPF ---
Anes - Initial Pre Proc Eval Procedure: Operation Date: 04/03/23 08:15 Proposed Procedures p Cystoscopy Bladder Biopsy - Burak Francisco MD Date/Time: 04/03/23 07:27 Surgeon: Burak Francisco MD Pre Op Diagnosis: Hematuria, Dysuria Patient Data Age: 82 Gender: M Height: 1.83 m Weight: 103.9 kg Last Vital Signs Temp 36.2 C L 04/03/23 06:30 Pulse 65 04/03/23 06:30 Resp 20 04/03/23 06:30 BP 138/56 L 04/03/23 06:30 Pulse Ox 98 04/03/23 06:30 O2 Del Method Room Air 04/03/23 06:30 Allergies Allergy/AdvReac Type Severity Reaction Status Date / Time meloxicam AdvReac Palpitation Verified 04/03/23 06:30 s valdecoxib [From Bextra] AdvReac Palpitation Verified 04/03/23 06:30 s Home Medications Medication Instructions Recorded Confirmed Type allopurinol 300 mg tablet 300 mg PO DAILY 09/03/19 04/03/23 History naproxen 500 mg tablet 500 mg PO BID PRN Pain 09/03/19 04/03/23 History aspirin 81 mg tablet,delayed 81 mg PO HS 04/25/20 04/03/23 History release (Adult Aspirin Regimen) nitroglycerin 0.4 mg sublingual 0.4 mg sublingual Q5M PRN chest 04/25/20 04/03/23 Rx tablet pain #30 tabs omega-3 fatty acids 1,000 mg 1,000 mg PO DAILY 06/05/21 04/03/23 History capsule (Fish Oil Concentrate) tramadol 50 mg tablet 50 mg PO HS PRN Pain 08/03/21 04/03/23 History atorvastatin 20 mg tablet 20 mg PO HS #30 tabs 08/13/21 04/03/23 Rx amlodipine 5 mg tablet See Rx Instructions .Route 03/15/22 04/03/23 Rx .COMPLEX #100 tabs Patient hx anesthesia problems: none Family hx anesthesia problems: none Results Review: All pre-operative results and documents have been reviewed as part of the pre-operative evaluation. [facility] Past Medical History Medical History Abnormal stress test (09/2017) Exercise stress was negative for ischemia. MPI showed small, mild infarct of the apical septum. Diastolic dysfunction Echocardiogram in December 2020 showed grade 1 diastolic dysfunction, mild LVH, and an EF of 60 to 65%. Essential hypertension Gout Obstructive sleep apnea on CPAP Surgical History Surgical History History of arthroscopic knee surgery History of bilateral carpal tunnel release History of hernia repair History of lumbar surgery History of repair of rotator cuff Family History Family History Sibling Cerebrovascular accident Cancer Father Heart failure Mother Cancer Social History Social History Social History: Surrogate decision maker: Kim Hartmann, . Code status: Full code. Smoking packs per day: 0.5 Smoking cigarettes per day: 10.0 Years smoked: 23 Smoking pack-years: 11.50 Smoking status: Former smoker Tobacco type: cigarettes and cigars Smoking end date: 03/27/83 Alcohol intake: current Drinks per week: 1 Substance use: never Substance use type: does not use Living arrangements: with family Spiritual care concerns: No Anes - Eval Final PreProcedure Day of Procedure 04/03/23 07:27 Patient weight: obese Heart: regular rate and rhythm Lungs: clear to auscultation Airway: Mallampati scale class III Neurological: alert and oriented Last oral intake: >/= 8 hours ASA classification: III Emergent: no Anesthetic plan: proceed Anesthesia type and monitoring: general GIVS and standard monitoring Results Review: All pre-operative results and documents have been reviewed as part of the pre-operative evaluation. Informed Consent: The patient's anesthetic plan and its attendant risks and benefits were discussed with the patient/family/POA. Questions were solicited and answers provided to the satisfaction of the patient/family/POA.
[2023-04-03] MEDS: ceFAZolin 2 GM/D5W 50 ML 2 GM/50 ML BAG IVPB (07:31)
[2023-04-03] MEDS: LIDOCAINE HCL 2% GEL UROJET 10 ML PKG MUCOUS MEM (07:47)
[2023-04-03 08:06] VITALS: BP 109/58; PULSE 58; RESP 12; O2SAT 100
--- NOTE | 2023-04-03 08:10 | W.PM.PROC2 ---
Procedure Note - Detailed Date of Procedure 04/03/23 Pre-op Diagnosis Hematuria, Dysuria Post-op Diagnosis Same Procedure Performed Cystoscopy, bladder biopsy Surgeon uBrak Francisco MD Anesthesia MAC Description of Procedure Patient is brought to the operative suite was prepped and draped in routine sterile fashion while in dorsal lithotomy position after the administration of systemic sedation. First a 21 F rigid cystoscope and then a 24 F resectoscope was placed in his bladder. He has very moderate lateral lobe hyperplasia of the prostate without a significant median lobe. Bladder mucosa, again, is notable for this area of marked hyperemia in the right posterior lateral bladder wall, above the right heather trigone. The remainder of the bladder is normal. I first obtained a couple cup biopsies followed by a small area of resection using a loop electrode a 24 F resectoscope. The base of the site is cauterized extensively with both the loop and rollerball. Scopes and wires removed. Patient tolerated the procedure well was taken to the outpatient recovery area in good condition
[2023-04-03 08:35] VITALS: BP 130/55; PULSE 55; O2SAT 98
[2023-04-03 09:00] VITALS: BP 135/56; PULSE 54
== END 2023-04-03 09:12 | disposition home or self-care (01) ==
PROVIDERS: PCP Family Medicine Sports Medicine; Visit Provider Urology
PROC: 0TBB8ZX Excision of Bladder, Via Natural or Artificial Opening Endoscopic, Diagnostic (ICD-10-PCS; CPT 52204; principal; 2023-04-03 08:15)
DX: N30.20 Other chronic cystitis without hematuria (principal); I11.9 Hypertensive heart disease without heart failure; G47.33 Obstructive sleep apnea (adult) (pediatric); E66.9 Obesity, unspecified; Z68.31 Body mass index [BMI] 31.0-31.9, adult; Z87.891 Personal history of nicotine dependence; Z99.89 Dependence on other enabling machines and devices; Z79.891 Long term (current) use of opiate analgesic; Z79.82 Long term (current) use of aspirin; Z80.52 Family history of malignant neoplasm of bladder; Z80.42 Family history of malignant neoplasm of prostate; Z82.49 Family history of ischemic heart disease and other diseases of the circulatory system
CPT/HCPCS: 52204; 87086; 88108; 88305; J0690; J2405; J2704; J7120

== ENCOUNTER 2024-02-09 07:48 | Outpatient (CLI) | payer MEDICARE, SELFPAY ==
--- NOTE | ~2024-02-09 | US_ITS ---
EXAMINATION: US abdomen limited DATE: 02/09/2024 08:40 INDICATION: Unspecified abdominal pain TECHNIQUE: Multiple grayscale and Doppler ultrasound images of the abdomen were obtained. COMPARISON: CT dated 03/25/2023 FINDINGS: The visualized portion of the pancreatic head and body are normal in appearance. The pancreatic tail is not visualized. Liver has normal echogenicity and contour, with a smooth surface. No liver lesion identified. No intrahepatic biliary duct dilation suspected. Portal venous flow was seen in the hepa topetal, normal direction and has normal Doppler waveform. There is a non shadowing 10 x 9 x 8 mm ech ogenic nodule near the neck of the otherwise normal-appearing gallbladder without definitive change i n position on the supine and decubitus imaging which could represent either a sludge ball or gallblad landry polyp. Sonographic Couch sign was reported as negative by the devil dog.Common bile duct measu res 3 mm in diameter which is normal. IMPRESSION: 1. 10 mm echogenic but nonshadowing sludge ball versus polyp near the neck of the gallbladder. Recomm end follow-up ultrasound in 6 months. Reviewed, dictated and finalized at location B. IMPRESSION: 1. 10 mm echogenic but nonshadowing sludge ball versus polyp near the neck of t he gallbladder. Recommend follow-up ultrasound in 6 months.
== END 2024-02-09 07:49 | disposition home or self-care (01) ==
PROVIDERS: PCP Nurse Practitioner Family; Visit Provider Physician Assistant Medical
DX: R10.9 Unspecified abdominal pain (principal)
CPT/HCPCS: 76705

== ENCOUNTER 2024-05-18 14:32 | Outpatient (CLI) | payer MEDICARE, SELFPAY ==
--- NOTE | ~2024-05-18 | CT_ITS ---
EXAMINATION: CT abdomen pelvis wo con DATE: 05/18/2024 15:04 INDICATION: Hematuria, unspecified. TECHNIQUE: Computed tomography (CT) of the abdomen and pelvis was performed without intravenous contr ast. Automated exposure control and iterative reconstruction technique were employed. The dose-length product was 330.44 mGy-cm. COMPARISON: CT abdomen and pelvis 03/25/2023 FINDINGS: The visualized portions of the lung bases demonstrate mild chronic interstitial lung diseas e. No pleural effusion. The heart size is normal. There are coronary artery calcifications. No perica rdial effusion. There is mild bilateral gynecomastia. The liver and spleen are normal. There is a gal lstone in the gallbladder, which is normal in size. The pancreas and adrenal glands are normal. There is an 8.6 cm cyst in right kidney. There is mild right hydronephrosis and hydroureter. Left kidney i s normal. There is no urolithiasis. The bladder is contracted. There is bladder wall thickening, righ t worse than left. There is diverticulosis of the colon without evidence of diverticulitis. The appen rachel is normal. There is aortocaval, right common iliac, and bilateral external iliac lymphadenopathy. For example, a left external iliac node measures 2.6 x 1.9 cm. There is no ascites. There are bridgi ng endplate osteophytes at multiple levels in the spine, consistent with diffuse idiopathic skeletal hyperostosis (DISH). There is moderate lumbar spondylosis. IMPRESSION: 1. Mild right hydronephrosis and hydroureter. 2. Bladder wall thickening, which may be secondary to chronic outlet obstruction or malignancy. 3. Pelvic and retroperitoneal lymphadenopathy suspicious for metastatic disease or lymphoma. Reviewed, dictated and finalized at location A. L TECHNICIAN IMPRESSION: 1. Mild right hydronephrosis and hydroureter. 2. Bladder wall thickening, which may be secondary to chronic outlet obstructio n or malignancy. 3. Pelvic and retroperitoneal lymphadenopathy suspicious for metastatic disease or lymphoma.
== END 2024-05-18 14:33 | disposition home or self-care (01) ==
PROVIDERS: PCP Nurse Practitioner Family; Visit Provider Nurse Practitioner Family
DX: N32.89 Other specified disorders of bladder (principal); N13.30 Unspecified hydronephrosis; N13.4 Hydroureter; R59.0 Localized enlarged lymph nodes
CPT/HCPCS: 74176

== ENCOUNTER 2024-07-22 12:29 | Outpatient (CLI) | payer MEDICARE, SELFPAY ==
--- NOTE | ~2024-07-22 | PE_ITS ---
EXAMINATION: PET skull to mid thigh DATE: 07/22/2024 14:38 INDICATION: Cancer of overlapping sites of bladder. TECHNIQUE: Blood glucose level was 114 mg/dL. 8.655 mCi of 18-fluorodeoxyglucose (18-FDG) was adminis tered i.v. Low dose computed tomography (CT) images were acquired from the base of the brain to the p roximal thighs for attenuation correction and anatomic localization. Automated exposure control was e mployed. Dose-length product (DLP) was 1126 mGy-cm. Positron emission tomography (PET) images were ac quired in the same distribution. COMPARISON: CT abdomen and pelvis 05/18/2024 FINDINGS: Head/neck: There are likely changes of right ocular lens replacement surgery. There is bilateral supr aclavicular lymphadenopathy with increased activity. Chest: The lungs demonstrate mild atelectasis. There is a small right pleural effusion. The heart siz e is normal. No pericardial effusion. There are coronary artery calcifications. There is mediastinal and left subpectoral lymphadenopathy with increased activity. Abdomen/pelvis/proximal thighs: The liver and spleen are normal. There is a gallstone in the gallblad landry. Gallbladder distention may be secondary to fasting. The pancreas is normal. There is thickening of the adrenal glands with increased activity. There are cysts in right kidney measuring up to 8.4 cm . Left kidney is normal. There are bilateral internal ureteral stents in expected positions. The blad landry is compressed by a Dia catheter. Bladder wall thickening is noted. There are no dilated loops o f bowel. The appendix is normal. There is retrocrural, aortocaval, left para-aortic, bilateral common iliac, bilateral external iliac, and bilateral internal iliac lymphadenopathy. There is no ascites. There is a lytic lesion in proximal right femur with increased activity. IMPRESSION: 1. Lymphadenopathy in the chest, abdomen, and pelvis with increased activity, consistent with metasta tic disease. 2. Lytic lesion proximal right femur with increased activity, consistent with metastatic disease. 3. Thickening of the adrenal glands with increased activity suspicious for metastatic disease. 4. Wall thickening of the bladder, which may be secondary to chronic outlet obstruction and/or malign kiara. 5. Small right pleural effusion. Reviewed, dictated and finalized at location A. OGRAPHIC PRINTER IMPRESSION: 1. Lymphadenopathy in the chest, abdomen, and pelvis with increased activity, c onsistent with metastatic disease. 2. Lytic lesion proximal right femur with increased activity, consistent with m etastatic disease. 3. Thickening of the adrenal glands with increased activity suspicious for meta static disease. 4. Wall thickening of the bladder, which may be secondary to chronic outlet obs truction and/or malignancy. 5. Small right pleural effusion.
--- OUTSIDE RECORDS SUMMARY | 2024-07-22 12:34 | XMS_ITS | Clinical Summary ---
Author Organization [facility] Address [address] [place] [address] Care Team Providers Care Radio Commentator Name Role Phone Jono Villafuerte MD Primary Care Provider + Allergies Active Allergy Reactions Criticality Noted Date Comments Valdecoxib Palpitations Low 05/27/2024 Meloxicam Chest tightness,Palpitations High 021 Tamsulosin Hives Medium 09/02/2023 Medications diphenhydrAMINE (BenadryL) 25 mg capsule Active acetaminophen (Tylenol) 325 mg capsule Rx: Tylenol Active phenylephrine HCl/acetaminoph n (SINUS FORMULA DAYTIME ORAL) Rx: Sinus Formula Active quinapril-hydro chlorothiazide (ACCURETIC) 10-12.5 mg per tablet Active allopurinoL (ZYLOPRIM) 300 mg tablet Active polyethylene glycol (MIRALAX) 17 gram/dose powder Use entire 255g bottle with 64oz of clear liquid as directed for colonoscopy prep. 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 Osteoarthritis 05/27/2024 Disorder of bursae of shoulder region 05/27/2024 Primary localized osteoarthritis of pelvic regio n and thigh 05/27/2024 Spinal enthesopathy 05/27/2024 Arthralgia of left knee 07/31/2022 Tear of medial meniscus of knee 07/31/2022 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 SSS (sick sinus syndrome) ([facility]) 04/09/2022 Overview (05/27/2024): NATHALIE ZAYAS PACEMAKER IMPLANTED 04/09/22 FOR SSS Status cardiac pacemaker 04/09/2022 Overview (05/27/2024): NATHALIE CHANA PACEMAKER IMPLANTED 04/09/22 FOR SSS Bradycardia 03/06/2022 Cerebrovascular accident (CVA) 03/06/2022 Vertebral artery stenosis, left 09/25/2021 Neck pain 07/23/2021 Osteoarthritis of left knee 07/23/2021 Cervical radiculopathy 07/23/2021 Partial thickness rotator cuff tear 12/02/2019 Left elbow pain 07/06/2019 Disorder of tendon of biceps 05/12/2019 Bilateral impacted cerumen 05/11/2019 Chronic gout without tophus 06/18/2018 Essential hypertension 06/18/2018 Low back pain 03/10/2017 Herniated cervical disc 08/22/2016 Atrial flutter ([facility]) 11/28/2015 Encounters Date Type Department Care Team Description 05/27/2024 2:52 PM GSE MECHANIC - 05/27/2024 11:59 PM GSE MECHANIC Hospital Encounter [facility] [address] [place] [id number] Hematuria, unspecified type Discharge Disposition: Discharge to home or self care 05/27/2024 1:18 PM GSE MECHANIC - 05/27/2024 11:59 PM GSE MECHANIC Hospital Encounter [facility] [address] [place] [id number] Diagnosis unknown Discharge Disposition: Discharge to home or self care 05/27/2024 11:00 AM GSE MECHANIC Office Visit [facility] [address] [place] [phone] Lobito Zamora MD Hematuria, unspecified type (Primary Dx); Nocturia 05/21/2024 Telephone [facility] [address] [place] [address] Amy MehtasoKILO vides from Last 3 Months Family History Medical History Relation Name Comments Alcohol abuse Brother Family history of alcoholism - (Added by TW Conv) Arthritis Brother Family history of arthritis - (Added by TW Conv) Gout Father Family history of gout - (Added by TW Conv) Heart disease Father Family history of cardiac disorder - (Added by TW Conv) Kidney disease Father Family histor y of kidney disease - (Added by TW Conv) Cancer Mother Family history of malignant neoplasm - (Added by TW Conv) Diabetes Sister Family history of diabetes mellitus - (Added by TW Conv) Stroke Sister Family history of cerebrovascular accident (CVA) - (Added by TW Conv) Relation Name Status Comments Brother Father Mother Sister Social History Tobacco Use Types Packs/Day Years Used Date Smoking Tobacco: Former Smokeless Tobacco: Former Tobacco Cessation:Counseling Given: Not Answered AUDIT-C Answer Date Recorded Q1: How often do you have a drink containing alc ohol? Never 05/27/2024 Average Number of Drinks Not on file 024 Frequency of Binge Drinking Not on file 05/03 Sex and Gender Information Value Date Recorded Sex Assigned at Not on file Legal Sex Male 3:08 PM CDT Gender Identity Not on file Sexual Orientation Not on file Obstetrics History Last Filed Vital Signs Vital Sign Reading Time Taken Comments Blood Pressure 114/63 05/27/2024 11:28 AM GSE MECHANIC Pulse 85 05/27/2024 11:28 AM GSE MECHANIC Temperature 36.6 C (97.9 F) 06/14/2015 9:54 AM GSE MECHANIC Respiratory Rate - - Oxygen Saturation 97% 06/14/2015 9:54 AM GSE MECHANIC Inhaled Oxygen Concentration - - Weight 103.4 kg (228 lb) 08/22/2016 7:30 AM CDT Height 182.9 cm (6') 08/22/2016 7:30 AM CDT Body Mass Index 30.92 08/22/2016 7:30 AM CDT Plan of Treatment Health Maintenance Due Date Last Done Comments Depression Screening 1940 Fall Risk Assessment 1940 Hepatitis B Screening 12/17/1957 Zoster Vaccine (1 of 2) 12/17/1989 Well Visit 65+ 12/17/2004 Covid-19 Vaccine ( season) 2024 04/03/2021, 09/03/2020, 08/13/2020 Influenza Vaccine (#1) 2024 02/08/2020, 2018 DTaP/Tdap/Td Vaccine (2 - Td or Tdap) 05/04/202907/2018 Pneumococcal vaccine 65+ Completed 05/04/2019, 03/02 Procedures Procedure Name Priority Date/Time Associated Diagnosis Comments CT BODY OUTSIDE CONSULT Routine 05/27/2024 1:18 PM GSE MECHANIC Diagnosis unknown URINALYSIS, MICROSCOPIC ONLY Routine 05/27/2024 12:04 PM GSE MECHANIC Hematuria, unspecified type URINALYSIS AND REFLEX TO MICROSCOPIC Routine 05/27/2024 12:04 PM GSE MECHANIC Hematuria, unspecified type URINE CULTURE Routine 05/27/2024 12:04 PM GSE MECHANIC Hematuria, unspecified type POCT URINALYSIS DIPSTICK Routine 05/27/2024 11:34 AM GSE MECHANIC Hematuria, unspecified type from Last 3 Months Results * CT Body Outside Consult (05/27/2024 1:18 PM GSE MECHANIC) Anatomical Region Laterality Modality Body N/A Computed Tomogra phy 05/27/2024 1:37 PM GSE MECHANIC Impressions 05/27/2024 1:37 PM GSE MECHANIC 1. Poorly defined semicircumferential bladder mass with obstructive right hydroureteronephrosis highly suspicious for bladder carcinoma. Urologic consultation is recommended. 2. Extensive retroperitoneal, obturator, and bilateral iliac chain lymphadenopathy highly concerning for aditya metastatic disease. Nonspecific soft tissue tissue nodularity within the anterior pelvis. 3. Assessment for disease burden/visceral soft tissue metastatic disease limited without intravenous contrast. The findings, conclusions and recommendations within this report do not replace the initial findings, conclusions and recommendations made at the facility where the study was performed based upon the imaging and clinical condition at that time. Comparison with the prior report and clinical history is necessary. The provided images may or may not represent the [employer] source data set and thus may contain changes that may lower the accuracy of this second-opinion interpretation. Electronically signed by: Braden Casillas M.D. Narrative 05/27/2024 1:37 PM GSE MECHANIC EXAMINATION: RADIOLOGY CONSULTATION ON OUTSIDE IMAGING STUDY STUDY INITIALLY PERFORMED: 05/18/2024 at [facility]. TYPE OF STUDY: Multiple CT images of the abdomen and pelvis without intravenous contrast are provided at the time of this interpretation. CONTRAST ROUTE: No contrast was administered. The protocol was adequate to address the clinical question. The outside final report was not available at the time of this second opinion interpretation. TYPE OF CONSULTATION: Consult on outside imaging study with images submitted through Outside Image Sharing Service DATE OF CONSULTATION: 05/27/2024 1:21 PM HISTORY: Gross hematuria COMPARISON: None available. FINDINGS: Peripheral reticular opacities likely representing scarring or early fibrotic lung disease. Heart size is within normal limits without pericardial effusion. Multivessel coronary artery atherosclerotic calcifications. Liver is normal in size and contour. Cholelithiasis is noted without evidence of cholecystitis. There is no intrahepatic or extrahepatic biliary duct dilation. No peripancreatic inflammatory changes. Spleen is normal. Adrenal glands are normal. Stomach and duodenum are normal. No small bowel wall thickening or evidence of obstruction. Colon is normal in appearance. Appendix is normal. No mesenteric lymphadenopathy. Multiple enlarged retroperitoneal lymph nodes measuring up to 1.5 cm (series 3, image 113). Bilateral iliac chain lymphadenopathy largest left external iliac node measuring 1.8 cm and right common iliac node measuring 2.2 cm. Enlarged left pelvic sidewall/obturator lymph nodes measure up to 1 cm (series 3, image 171). No inguinal lymphadenopathy. Atherosclerosis is noted in the abdominal aorta and its branches. There is no intra-abdominal free air or free fluid. Mild right hydroureteronephrosis, diffuse extending to the ureterovesicular junction. No left hydronephrosis. No nephrolithiasis. Lobulated, simple appearing right renal cyst measuring up to 8 cm. Poorly defined, infiltrative, irregular mass within the semicircumferential right bladder extending from approximately 4-2 o'clock. Mild pericystic inflammatory changes are present. 3 mm nodule within the anterior pelvic soft tissue is nonspecific and could represent enlarged reactive lymph node or peritoneal implant (series 3, image 167). Prostate is normal. MUSCULOSKELETAL: No acute osseus abnormality. No suspicious lytic or blastic osseous lesion. Multilevel spine degenerative changes. Bilateral sacroiliac joint and hip degenerative changes. Procedure Note Braden Casillas II, MD - 05/27/2024 EXAMINATION: RADIOLOGY CONSULTATION ON OUTSIDE IMAGING STUDY STUDY INITIALLY PERFORMED: 05/18/2024 at [facility]. TYPE OF STUDY: Multiple CT images of the abdomen and pelvis without intravenous contrast are provided at the time of this interpretation. CONTRAST ROUTE: No contrast was administered. The protocol was adequate to address the clinical question. The outside final report was not available at the time of this second opinion interpretation. TYPE OF CONSULTATION: Consult on outside imaging study with images submitted through Outside Image Sharing Service DATE OF CONSULTATION: 05/27/2024 1:21 PM HISTORY: Gross hematuria COMPARISON: None available. FINDINGS: Peripheral reticular opacities likely representing scarring or early fibrotic lung disease. Heart size is within normal limits without pericardial effusion. Multivessel coronary artery atherosclerotic calcifications. Liver is normal in size and contour. Cholelithiasis is noted without evidence of cholecystitis. There is no intrahepatic or extrahepatic biliary duct dilation. No peripancreatic inflammatory changes. Spleen is normal. Adrenal glands are normal. Stomach and duodenum are normal. No small bowel wall thickening or evidence of obstruction. Colon is normal in appearance. Appendix is normal. No mesenteric lymphadenopathy. Multiple enlarged retroperitoneal lymph nodes measuring up to 1.5 cm (series 3, image 113). Bilateral iliac chain lymphadenopathy largest left external iliac node measuring 1.8 cm and right common iliac node measuring 2.2 cm. Enlarged left pelvic sidewall/obturator lymph nodes measure up to 1 cm (series 3, image 171). No inguinal lymphadenopathy. Atherosclerosis is noted in the abdominal aorta and its branches. There is no intra-abdominal free air or free fluid. Mild right hydroureteronephrosis, diffuse extending to the ureterovesicular junction. No left hydronephrosis. No nephrolithiasis. Lobulated, simple appearing right renal cyst measuring up to 8 cm. Poorly defined, infiltrative, irregular mass within the semicircumferential right bladder extending from approximately 4-2 o'clock. Mild pericystic inflammatory changes are present. 3 mm nodule within the anterior pelvic soft tissue is nonspecific and could represent enlarged reactive lymph node or peritoneal implant (series 3, image 167). Prostate is normal. MUSCULOSKELETAL: No acute osseus abnormality. No suspicious lytic or blastic osseous lesion. Multilevel spine degenerative changes. Bilateral sacroiliac joint and hip degenerative changes. IMPRESSION: 1. Poorly defined semicircumferential bladder mass with obstructive right hydroureteronephrosis highly suspicious for bladder carcinoma. Urologic consultation is recommended. 2. Extensive retroperitoneal, obturator, and bilateral iliac chain lymphadenopathy highly concerning for aditya metastatic disease. Nonspecific soft tissue tissue nodularity within the anterior pelvis. 3. Assessment for disease burden/visceral soft tissue metastatic disease limited without intravenous contrast. The findings, conclusions and recommendations within this report do not replace the initial findings, conclusions and recommendations made at the facility where the study was performed based upon the imaging and clinical condition at that time. Comparison with the prior report and clinical history is necessary. The provided images may or may not represent the [employer] source data set and thus may contain changes that may lower the accuracy of this second-opinion interpretation. Electronically signed by: Braden Casillas M.D. Lobito Zamora MD [facility] [place] PROCEDURES Final Result * (ABNORMAL) Urinalysis reflex to microscopic (05/27/2024 12:04 PM GSE MECHANIC) Color, ur Red(A) Yellow Comment:Testing performed by : [address] [address] Clarity, ur Turbid(A) Clear EDWIGE Comment:Testing performed by : [address] [address] Specific gravity, ur 1.015 1.003 - 1.030 EDWIGE Comment:Testing performed by : [address] [address] pH, urine 6.0 EDWIGE Comment: Interpretive Data U rine pH is affected by diet, medications, systemic acid-base disturbances, and renal tubular function. pH may affect urinary stone formation. For example, urine pH below 6.0 may help reduce the tendency for calcium phosphate stones and pH greater than 6.0 may reduce the tendency for uric acid stone formation. Source: [employer] Current Interpretive Data was last revised on 2017 Testing performed by: [address] [address] Protein, ur ql 2+(A) Negative EDWIGE Comment:Testing performed by : [facility], [address] [place] [address], [place]., [address] Glucose, ur ql Negative Negative EDWIGE Comment:Testing performed by : [address], [place]., [address] Ketones, ur Negative Negative EDWIGE Comment:Testing performed by : [address], [place]., [address] Bilirubin, ur Negative Negative EDWIGE Comment:Testing performed by : [address], [place]., [address] Blood, ur 3+(A) Negative EDWIGE Comment:Testing performed by : [address], [place]., [address] Urobilinogen, ur <2.0 <2.0 mg/dL EDWIGE Comment:Testing performed by : [address], [place]., [address] Nitrite, ur Negative Negative EDWIGE Comment:Testing performed by : [address], [place]., [address] Leukocyte esterase, ur 4+(A) Negative EDWIGE Comment:Testing performed by : [address], [place]., [address] UA reflex comment Reflex to microscopic UA will be performed. EDWIGE Comment:Testing performed by : [address], [place]., [address] Urine 05/27/2024 12:0 4 PM GSE MECHANIC 05/27/2024 4:37 PM GSE MECHANIC us Lobito Zamora MD LAB URINE ORDERABLES Final Resul t EDWIGE [id number] [facility] Department [place] [address] * (ABNORMAL) Urinalysis, microscopic only (05/27/2024 12:04 PM GSE MECHANIC) WBC, ur >50(A) 0 - 5 /HPF Comment:Testing performed by : [address], [place]., [address] RBC, ur >50(A) 0 - 2 /HPF EDWIGE Comment:Testing performed by : [facility], [address] [place] [address]., [address] Bacteria, ur 4+(A) EDWIGE Comment:Testing performed by : [facility], [address] [place] [address]., [address] Yeast, ur 2+(A) EDWIGE Comment:Testing performed by : [address] [address] Mucous, ur Present(A) EDWIGE Comment:Testing performed by : [facility], [address] [place] [address], [place]., [address] Hyaline casts, ur 1-5 0 - 10 /LPF EDWIGE Comment:Testing performed by : [address] [address] Urine 05/27/2024 12:0 4 PM GSE MECHANIC 05/27/2024 4:37 PM GSE MECHANIC Lobito Zamora MD LAB URINE ORDERABLES Final Resul t Performing Organization Address City/[facility]/ZIP Co de Phone Number [place] [phone] [facility] [place] [employer] [place] [address] * Urine culture Urine, bladder (05/27/2024 12:04 PM GSE MECHANIC) Report Final Report: No growth Comment:Testing performed by : [facility], [address] [place]., [address] Urine, bladder 05/27/2024 12 :04 PM GSE MECHANIC 05/27/2024 8:25 PM GSE MECHANIC Narrative EDWIGE - 05/29/2024 7:27 AM GSE MECHANIC Testing performed by [facility] ([phone]) Lobito Zamora MD LAB MICROBIOLOGY - GENERAL ORDER KOMAL Final Result Performing Organization Address City/[facility] Co de Phone Number [facility] [address] [facility] [place] [employer] [place] [address] * (ABNORMAL) POCT urinalysis dipstick (05/27/2024 11:34 AM GSE MECHANIC) Color, Urine, POC Red Clarity, ur, POC Cloudy(A) Clear Glucose, ur, POC Negative Negative MG/DL Bilirubin, ur, POC Negative Negative, Small, Moderate, Large Ketones, ur, POC Negative Negative Specific [place], POC 1.015 1.003 - 1.030 Blood, ur, POC 3+(A) Negative pH, ur, POC 6.0 5.0 - 8.0 Protein, ur, POC 2+(A) Negative Urobilinogen, urine, POC 0.2 0.2 - 1.0 mg/dL Nitrite, ur, POC Negative Negative Leukocytes, ur, POC 3+(A) Negative Lot Number 0 Urine 05/27/2024 11:3 4 AM GSE MECHANIC Lobito Zamora MD POINT OF CARE TEST ORDERABLES Fi nal Result from Last 3 Months Insurance MEDICARE [employer] [facility] MEDICARE Address: [facility] [address] [place] [address] [facility] MDCR HMO REF [facility] MEDICARE Address: [address] [address] [place] [address] MEDICARE [employer] [facility] MEDICARE Address: [address] [address] [place] [address] Care Teams Radio Commentator Relationship Specialty Start Date End Date Jono Villafuerte MD PCP - General Family Medicine 07/06/19
--- OUTSIDE RECORDS SUMMARY | 2024-07-22 12:34 | XMS_ITS | Clinical Summary ---
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 07/23/19 24 Active sertraline (ZOLOFT) 50 MG tabletIndicatio ns:Generalized anxiety disorder TAKE 1 TABLET(50 MG) BY MOUTH DAILY 90 tablet 1 09/11/19 24 Active Additional Information Patient taking differently: 50 mg Oral Daily, Reported on 07/08/2024 allopurinol (ZYLOPRIM) 300 MG tabletIndicatio ns:Chronic gout without tophus, unspecified cause, unspecified site take 1 tablet by mouth daily 100 tablet 02/06/20 24 Active Additional Information Patient taking differently: 300 mg Oral Daily, Reported on 07/08/2024 traMADol (ULTRAM) 50 MG tablet Take 1 tablet (50 mg total) by mouth every 6 (six) hours as needed for Pain. Active nitroglycerin (NITROSTAT) 0.[address] 1 tablet (0.4 mg total) under the tongue every 5 (five) minutes as needed for Chest Pain (Max: x3 doses). 025 Discontinu ed(Error) atorvastatin (LIPITOR) 20 MG tabletIndicatio ns:Cerebrovascu lar accident (CVA), unspecified mechanism ([facility]) Take 1 tablet (20 mg total) by mouth nightly at bedtime. 100 tablet 09/25/19 24 025 Discontinu ed(Stop Taking at Discharge) aspirin EC (ECOTRIN) 81 MG tablet Take 1 tablet (81 mg total) by mouth daily. 025 Discontinu ed(Stop Taking at Discharge) amLODIPine (NORVASC) 5 MG tablet Take 0.5 tablets (2.5 mg total) by mouth every morning. 04/07/20 24 025 Discontinu ed(Stop Taking at Discharge) cephALEXin (KEFLEX) 500 MG capsule Take 1 capsule (500 mg total) by mouth 2 (two) times daily for 3 days. 6 capsule 06/24/19 25 025 cefdinir (OMNICEF) 300 MG Cap capsule Take 1 capsule (300 mg total) by mouth 2 (two) times daily for 5 days. 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) 12/2021 Overview (04/09/2022): NATHALIE CHANA PACEMAKER IMPLANTED 04/09/22 FOR SSS Cerebrovascular accident (CV A), unspecified mechanism ([facility]) 03/06/2022 Bradycardia 03/06/2022 Cerebral arteriosclerosis with history of previo us stroke 08/03/2021 Bilateral impacted cerumen 05/11/2019 Assessment & Plan (05/11/2019 3:38 PM STUDIO COORDINATOR): Removed with irrigation. Tolerated well ok to proceed with auditory testing Essential hypertension 06/18/2018 Chronic gout without tophus, unspecified cause, unspecified site 06/18/2018 Low back pain 03/10/2017 Herniated cervical disc 08/22/2016 Atrial flutter (CMS/HCC HHS/HCC) 11/28/2015 Resolved Problems Problem Noted Date Diagnosed Date Resolved Date Left elbow pain 07/06/2019 01/26/2021 Encounters Date Type Department Care Team Description 07/12/2024 Hospital Follow-up Call [facility] [place] [address] Kandi Covarrubias LPN Follow Up Call (ELIGIO 07/08-07/10/24) 07/08/2024 1:30 PM STUDIO COORDINATOR - 07/10/2024 10:50 AM STUDIO COORDINATOR Emergency [facility] [place] [address] Benjamin Elise MD Curtis, MD Elva Polk Khaled, MD McGowen, Payton K, MD Schenck, Jeffrey M, DO Generalized Weakness Discharge Disposition: Home or Self Care (Routine Discharge) 07/08/2024 Travel 07/01/2024 12:51 AM STUDIO COORDINATOR - 07/01/2024 5:09 AM STUDIO COORDINATOR Emergency [facility] Emergency Room [address] [place] [address] Hernandez Hernandez MD Urinary Symptoms Discharge Disposition: Home or Self Care (Routine Discharge) 06/30/2024 12:04 PM STUDIO COORDINATOR Anesthesia Event [facility] [place], [place] [address] Kaiden Renee MD Jackson, Samantha Rae, SUPERVISOR D[employer]LLING [employer]OOTING 06/30/2024 11:30 AM STUDIO COORDINATOR - 06/30/2024 12:44 PM STUDIO COORDINATOR Surgery [facility] [place] [address] Nixon Harding MD CYSTOSCOPY, BILATERAL RETROGRADE PYELOGRAM 06/30/2024 9:24 AM STUDIO COORDINATOR - 06/30/2024 3:40 PM STUDIO COORDINATOR Hospital Encounter [facility] [place] [address] Nixon Harding MD Discharge Disposition: Home or Self Care (Routine Discharge) 06/30/2024 Travel 06/29/2024 Hospital Follow-up Call [place] [address] Kandi Covarrubias LPN Follow Up Call (ELIGIO 06/22-06/24/24) 06/22/2024 2:14 PM STUDIO COORDINATOR - 06/24/2024 12:58 PM STUDIO COORDINATOR Hospital Encounter [facility] [place] [address] Alexus Vasquez, Yan Tinoco MD Creech, Julie Ann, DO Dizziness Discharge Disposition: Home with Home Health Care 06/22/2024 1:15 PM STUDIO COORDINATOR [facility], [address] [address] Abilio Murillo MD Dizziness 06/22/2024 Travel 06/18/2024 Telephone [facility] [address] [address] Sultana Graff RN Dizziness 06/07/2024 Telephone [facility], [address] [address] Abilio Murillo MD Surgical Clearance 06/04/2024 2:40 PM STUDIO COORDINATOR - 06/04/2024 11:59 PM STUDIO COORDINATOR Hospital Encounter [facility] [address] Nixon Harding MD Discharge Disposition: Home or Self Care (Routine Discharge) 06/04/2024 Prep for Procedure [facility] [place] [address] Vilma Mahan FNP 06/04/2024 Prep for Procedure [facility] [place] [address] Nixon Harding MD 06/04/2024 Travel 05/27/2024 Scan Concuity INFO SRVCS Scanned, [facility] 05/06/2024 Telephone [facility] [address] [address] Sultana Graff, RN Results 05/03/2024 1:41 PM STUDIO COORDINATOR - 05/03/2024 11:59 PM STUDIO COORDINATOR Hospital Encounter [facility] [place] [address] Abilio Murillo MD Discharge Disposition: Home or Self Care (Routine Discharge) 05/03/2024 Travel from Last 3 Months Immunizations Name Administration Dates Next Due Fluzone 6 Months+ Quad (0.5 mL Prefilled Syringe) 02/08/2020,03/16/2019 Fluzone High Dose - >Age 65 (Prefilled Syringe) 02/28/2022,03/08/2021 Influenza Adult (Generic) 03/16/2019 PFIZER COVID-19 (COBB CAP), MRNA, LNP-S, PF, 30 MCG/0.3 ML ARELIS-SUCROSE, IM 11/22/2021 PFIZER COVID-19 (ORIGINAL FO RMULATION, PURPLE CAP) mRNA, LNP-S, PF, 30 MCG/0.3 ML DOSE 04/03/2021,09/03/2020,08/13/2020 Pneumococcal (Pneumovax 23) 05/04/2019 Pneumococcal (Prevnar 13) 03/15/2016 Tdap (Historical Only-select from magnify glass) 05/04/2019 Family History Medical History Relation Comments Kidney Disease Father Cancer Mother stomach Stroke Sister 1 Heart Attack Sister 4 Open Heart Sister 4 Stroke Sister 5 Relation Status Comments Father Mother Sister 1 Sister 2 Sister 3 Alive Sister 4 Alive Sister 5 Alive Social History Tobacco Use Types Packs/Day Years Used Date Smoking Tobacco: Former Cigarettes 1 1980 Passive Smoke Exposure: Past Smokeless Tobacco: Former Tobacco Cessation:Counseling Given: Yes Comments:patient is unsure how much he smoked Alcohol Use Standard Drinks/Week Comments Not Currently 0 (1 standard drink = 0.6 oz pur e alcohol) [facility] [employer] Answer Date Recorded In the past 12 months has e Vendor Registry, gas, oil, or water [employer] threatened to shut off services in your home? No 07/09/2024 Humiliation, Afraid, Rape, and Kick questionnair e Answer Date Recorded Within the last year, have y ou been afraid of your partner or ex-partner? No 07/09/2024 Within the last year, have y ou been humiliated or emotionally abused in other ways by your partner or ex-partner? No Within the last year, have y ou been kicked, hit, slapped, or otherwise physically hurt by your partner or ex-partner? No 07/09/2024 Within the last year, have y ou been raped or forced to have any kind of sexual activity by your partner or ex-partner? No 07/09/2024 AUDIT-C Answer Date Recorded Q1: How often do you have a drink containing alc ohol? Monthly or less 07/01/2023 Q2: How many drinks containi ng alcohol do you have on a typical day when you are drinking? 1 or 2 07/01/2023 Q3: How often do you have si x or more drinks on one occasion? Never 07/01/2023 Overall Financial Resource Strain (CARDIA) Answe r Date Recorded How hard is it for you to pa y for the very basics like food, housing, medical care, and heating? Not hard at all 07/09/2024 PHQ-2 Answer Date Recorded Patient Health Questionnaire-2 Score 0 09/02/2023 Hunger Vital Sign Answer Date Recorded Within the past 12 months, y ou worried that your food would run out before you got the money to buy more. Never true 07/09/19 25 Within the past 12 months, t he food you bought just didn't last and you didn't have money to get more. Never true 07/09/2024 PRAPARE - Transportation Answer Date Re corded In the past 12 months, has l ack of transportation kept you from medical appointments or from getting medications? No 11/2024 In the past 12 months, has l ack of transportation kept you from meetings, work, or from getting things needed for daily living? No 07/09/2024 Housing Stability Vital Sign Answer Lucas e Recorded In the last 12 months, was t here a time when you were not able to pay the mortgage or rent on time? No 07/09/2024 In the past 12 months, how m any times have you moved where you were living? 0 07/09/2024 At any time in the past 12 m [facility], were you homeless or living in a m[facility]p (including now)? No 07/09/2024 Education Answer Date Recorded What is the highest level of school you have completed or the highest degree you have received? High school graduate 10/22/2018 Sex and Gender Information Value Date Recorded Sex Assigned at Male 10/22/2018 3:33 PM CDT Legal Sex Male 6:08 PM CDT Gender Identity Male 10/22/2018 3:33 PM CDT Sexual Orientation Straight 10/22/2018 3: 33 PM CDT Last Filed Vital Signs Vital Sign Reading Time Taken Comments Blood Pressure 150/68 07/10/2024 7:25 AM STUDIO COORDINATOR Pulse 80 07/10/2024 7:25 AM STUDIO COORDINATOR Temperature 36.7 C (98.1 F) 07/10/2024 7:25 AM STUDIO COORDINATOR Respiratory Rate 21 07/10/2024 7:25 AM STUDIO COORDINATOR Oxygen Saturation 96% 07/10/2024 7:25 AM STUDIO COORDINATOR Inhaled Oxygen Concentration - - Weight 85.7 kg (188 lb 15 oz) 07/10/2024 4:37 AM STUDIO COORDINATOR Height 182.9 cm (6') 07/08/2024 2:15 PM STUDIO COORDINATOR Body Mass Index 25.62 07/08/2024 2:15 PM STUDIO COORDINATOR Plan of Treatment Upcoming Encounters Date Type Department Care Team (Late st Contact Info) Description 10/06/2024 11:30 AM CDT [facility] [address] [place] [phone] Onelia Gonzales, ASSISTANT HAIRSTYLIST-C [facility] [address] [place], [place] [id number] 12/06/2024 10:40 AM CDT Office Visit [facility] [place] [address] [place] [address] Wayne Connor DO [address] [place], [place] [id number] Health Maintenance Due Date Last Done Comments ASCVD Statin 1940 Zoster Vaccines (1 of 2) 12/17/1989 RSV Immunization or 60+ Years (1 - 1-dose 75+ series) 12/17/2014 PHQ-2 (Physician Olive) 06/02/2024 09/02/2023 Annual Medicare Wellness Visit 07/02/2024 07/01/2023 ASCVD LDL 07/10/2024 07/10/2023, 01/2023, 02/21/2022, Additional history exists DTaP, Tdap and Td Vaccines (2 - Td or Tdap) 05/04/2029 05/04/2019 Pneumococcal Vaccine: 65+ Years Completed 05/04/2019, 03/15/2016 COVID-19 Vaccine Completed 02/18/2024, , 11/22/2021, Additional history exists Influenza Adult Completed 02/18/2024, 02/01, 03/08/2021, Additional history exists Meningococcal B Vaccine Aged Out No l onger eligible based on patient's age to complete this topic Meningococcal Vaccine Aged Out No laz sarai eligible based on patient's age to complete this topic RSV Immunizations Under 20 Months Aged Out No longer eligible based on patient's age to complete this topic Goals Goal Patient Goal Type Associated Problems Recent Progress Patient-Stated? Author Patient will return to prior living situation and remain independent in ADLs upon discharge from hospital Lifestyle No Johanny Nagy, RN Health - patient able to perform ADLs independently Lifestyle No Emperatriz Humphries [employer] Implanted Type Area Roller Mill Operator Device Identifier Shelf Expiration Date Model / Serial / Lot Rv Lead Implant-04/09 Implanted:Qt y: 1 on 04/09/2022 by Mara Quigley MD Explanted: by Mara Quigley MD (Quantity not on file) Lead Implant Right: Ventricle [employer] CARDIAC RHYTHM AND HEART FAILURE - DIV M [id number] 01/23/2024 5076-58 / [id number] / Description:SEPTUM Explanted on 05/02/2022 Atrial Lead Implant-04/09 Implanted:Qt y: 1 on 04/09/2022 by Mara Quigley MD Explanted: by Mara Quigley MD (Quantity not on file) Lead Implant Right: Atrium [employer] CARDIAC RHYTHM AND HEART FAILURE - DIV M [id number] 01/29/2024 5076-52 / [id number] / Description:APPENDAGE Explanted on 05/02/2022 Tria Soft Implanted:Qt y: 1 on 06/30/2024 by Nixon Harding MD at [facility] Stent Left: Ureter [id number] 01/21/2027 [id number] 230 / / [id number] Tria Soft Implanted:Qt y: 1 on 06/30/2024 by Nixon Harding MD at [facility] Stent Right: Ureter [id number] 01/06/2027 [id number] 230 / / [id number] Explanted Type Area Roller Mill Operator Device Identifier Shelf Expiration Date Model / Serial / Lot Mdt Pacemaker-04/09/2022 Implanted:Qty : 1 on 04/09/2022 by Mara Quigley MD Explanted:Qty : 1 on 05/02/2022 by Mara Quigley MD Pacemaker Left: Chest [employer] CARDIAC RHYTHM AND HEART FAILURE - DIV M [id number] 08/28/2023 [id number] / [id number] / Procedures Procedure Name Priority Date/Time Associated Diagnosis Comments CBC W/DIFF AUTOMATED Routine 07/10/2024 8:15 AM STUDIO COORDINATOR COMPREHENSIVE METABOLIC PANEL Routine 07/10/2024 8:15 AM STUDIO COORDINATOR MAGNESIUM Routine 07/10/2024 8:15 AM STUDIO COORDINATOR CBC W/DIFF AUTOMATED STAT 07/09/2024 6:30 AM STUDIO COORDINATOR COMPREHENSIVE METABOLIC PANEL STAT 07/09/2024 6:30 AM STUDIO COORDINATOR MAGNESIUM STAT 07/09/2024 6:30 AM STUDIO COORDINATOR LACTIC ACID W REFLEX (SEPSIS) TIMED 07/08/2024 6:[address] CHEST+ABD+PEL W CON STAT 6:[address] HEAD WO CON STAT 07/08/2024 6:02 PM STUDIO COORDINATOR URINE BACTERIA CULTURE STAT 5:29 PM STUDIO COORDINATOR HC URINALYSIS AUTO W/O MICRO STAT 07/08/2024 5:29 PM STUDIO COORDINATOR PRO-BRAIN NATRIURETIC PEPTIDE STAT 07/08/2024 3:55 PM STUDIO COORDINATOR ECG 12-LEAD STAT 07/08/2024 3:38 PM STUDIO COORDINATOR HEMOGLOBIN, GLYCOSYLATED Routine 025 3:17 PM STUDIO COORDINATOR CULTURE, BACTERIA, BLOOD STAT 025 3:15 PM STUDIO COORDINATOR RETICULOCYTE CT, AUTO STAT 07/08/2024 3:15 PM STUDIO COORDINATOR IRON SAT PANEL (IRON,IBC,%SAT) STAT 07/08/2024 3:15 PM STUDIO COORDINATOR FOLIC ACID SERUM STAT 07/08/2024 3:15 PM STUDIO COORDINATOR FERRITIN STAT 07/08/2024 3:15 PM STUDIO COORDINATOR TROPONIN, QUANT STAT 07/08/2024 3:15 PM STUDIO COORDINATOR COMPREHENSIVE METABOLIC PANEL STAT 07/08/2024 3:15 PM STUDIO COORDINATOR LACTIC ACID W REFLEX (SEPSIS) STAT 07/08/2024 3:15 PM STUDIO COORDINATOR CBC W/DIFF AUTOMATED STAT 07/08/2024 3:15 PM STUDIO COORDINATOR XR CHEST PORTABLE STAT 07/08/2024 3:02 PM STUDIO COORDINATOR BASIC METABOLIC PANEL STAT 07/01/2024 4:14 AM STUDIO COORDINATOR BASIC METABOLIC PANEL STAT 07/01/2024 1:53 AM STUDIO COORDINATOR SURG XR RETROGRD UROGRAPHY Routine 06/30/2024 1:31 PM STUDIO COORDINATOR CYSTOSCOPY TRANSURETHRAL RESECTION BLADDER TUMOR 06/30/2024 12:04 PM STUDIO COORDINATOR CHRONIC CYSTITIS, HYDRONEPHROSIS ACQUIRED N30.20, N13.30 Case Notes SCHED BY FAX 05/27/2024 LCS PHONE ASSESS CYSTOSCOPY STENT INSERTION/REMOVAL/CHANGE 06/30/2024 12:04 PM STUDIO COORDINATOR CHRONIC CYSTITIS, HYDRONEPHROSIS ACQUIRED N30.20, N13.30 Case Notes SCHED BY FAX 05/27/2024 LCS PHONE ASSESS CYSTOURETHROSCOPY,BIOPSY 025 12:04 PM STUDIO COORDINATOR CHRONIC CYSTITIS, HYDRONEPHROSIS ACQUIRED N30.20, N13.30 Case Notes SCHED BY FAX 05/27/2024 LCS PHONE ASSESS PATHOLOGY Routine 06/30/2024 12:00 AM STUDIO COORDINATOR COMPREHENSIVE METABOLIC PANEL Routine 06/24/2024 6:33 AM STUDIO COORDINATOR CBC W/DIFF AUTOMATED Routine 06/24/2024 6:33 AM STUDIO COORDINATOR OCCULT BLOOD, FECES Routine 06/23/2024 9:10 PM STUDIO COORDINATOR USE ECHOCARDIOGRAM STAT 06/23/2024 10:15 AM STUDIO COORDINATOR US ABD LIMITED Today 06/23/2024 8:37 AM STUDIO COORDINATOR COMPREHENSIVE METABOLIC PANEL Routine 06/23/2024 6:02 AM STUDIO COORDINATOR CBC W/DIFF AUTOMATED Routine 06/23/2024 6:02 AM STUDIO COORDINATOR GGT, GAMMA GLUTAMYLTRANSFERASE Routine 06/23/2024 6:02 AM STUDIO COORDINATOR FERRITIN Routine 06/22/2024 10:46 PM STUDIO COORDINATOR PRO-BRAIN NATRIURETIC PEPTIDE Routine 06/22/2024 10:29 PM STUDIO COORDINATOR TSH W/REFLEX Routine 06/22/2024 10:29 PM STUDIO COORDINATOR IRON SAT PANEL (IRON,IBC,%SAT) Routine 06/22/2024 10:29 PM STUDIO COORDINATOR PRO-BRAIN NATRIURETIC PEPTIDE STAT 06/22/2024 10:29 PM STUDIO COORDINATOR CULTURE, BACTERIA, BLOOD STAT 025 7:10 PM STUDIO COORDINATOR URINE BACTERIA CULTURE Routine 6:34 PM STUDIO COORDINATOR HC URINALYSIS AUTO W/O MICRO STAT 06/22/2024 6:[address] ABD+PEL W CON STAT 06/22/2024 6:25 PM STUDIO COORDINATOR LACTIC ACID W REFLEX (SEPSIS) STAT 06/22/2024 6:15 PM STUDIO COORDINATOR ECG 12-LEAD Routine 06/22/2024 2:46 PM STUDIO COORDINATOR XR CHEST PORTABLE STAT 06/22/2024 2:34 PM STUDIO COORDINATOR CORONAVIRUS (COVID 19) STAT 2:28 PM STUDIO COORDINATOR INFLUENZA A & B STAT 06/22/2024 2:28 PM STUDIO COORDINATOR TROPONIN, QUANT STAT 06/22/2024 2:28 PM STUDIO COORDINATOR COMPREHENSIVE METABOLIC PANEL STAT 06/22/2024 2:28 PM STUDIO COORDINATOR CBC W/DIFF AUTOMATED STAT 06/22/2024 2:28 PM STUDIO COORDINATOR ELECTROCARDIOGRAM (NON MIDMARK ACQUIRED) Routine 06/22/2024 1:29 PM STUDIO COORDINATOR Dizzy Lightheaded URINE BACTERIA CULTURE Routine 2:30 PM STUDIO COORDINATOR Chronic cystitis Hydronephrosis USV ART EXER W GAB LOW EXT Routine 05/03/2024 4:38 PM STUDIO COORDINATOR Claudication (CMS/HCC) LIPID PANEL Routine 07/10/2023 2:03 PM STUDIO COORDINATOR Essential hypertension from Last 3 Months or Most Recently Relevant to Health Maintenance Results * (ABNORMAL) COMPREHENSIVE METABOLIC PANEL (07/10/2024 8:15 AM STUDIO COORDINATOR) Only the most recent of6 resultswithin the time period is included. GLUCOSE 150(H) 70 - 99 MG/DL 07/10/2024 8:59 AM STUDIO COORDINATOR [facility] BUN 12 7 - 18 MG/DL 07/10/2024 8:59 AM STUDIO COORDINATOR [facility] CREATININE S/P/B 0.84 0.7 - 1.3 MG/DL 07/10/2024 8:59 AM [facility] SODIUM S/P/B 134(L) 136 - 145 MMOL/L 07/10/2024 8:59 AM [facility] POTASSIUM S/P/B 3.7 3.5 - 5.1 MMOL/L 07/10/2024 8:59 AM [facility] CHLORIDE S/P/B 103 97 - 115 MMOL/L 07/10/2024 8:59 AM [facility] CO2 24.4 21 - 32 MMOL/L 07/10/2024 8:59 AM [facility] CALCIUM S/P/B 8.6 8.5 - 10.1 MG/DL 07/10/2024 8:59 AM [facility] BILIRUBIN TOTAL S/P/B 1.1 0.2 - 1.2 MG/DL 07/10/2024 8:59 AM [facility] Comment: THIS ASSAY IS NOT RECOMMENDED FOR PATIENTS UNDERGOING TREATMENT WITH ELTROMBOPAG DUE TO THE POTENTIAL FOR FALSELY ELEVATED RESULTS. TOTAL PROTEIN S/P/B 5.8(L) 6.4 - 8.2 G/DL 07/10/2024 8:59 AM [facility] ALBUMIN S/P/B 1.6(L) 3.4 - 5.0 G/DL 07/10/2024 8:59 AM [facility] AST 67(H) 15 - 37 U/L 07/10/2024 8:59 AM [facility] ALT 109(H) 16 - 60 U/L 07/10/2024 8:59 AM [facility] ALKALINE PHOSPHATASE S/P/B 117 50 - 136 U/L 07/10/2024 8:59 AM [facility] ANION GAP 6.6 2 - 10 MMOL/L 07/10/2024 8:59 AM [facility] BUN CREATININE RATIO 14.3 6 - 26 07/10/2024 8:59 AM [facility] A/G RATIO 0.4(L) 1.0 - 2.0 RATIO 07/10/2024 8:59 AM [facility] GFR ESTIMATE 86(L) >90 ML/MIN/1.7 3 M2 07/10/2024 8:59 AM [facility] Comment: NOTE: eGFR is not calculated for patients <18 years of age or gender unknown. This is an estimated GFR calculation using the new CKD EPI creatinine equation without race and so does not require a correction factor for race. This estimated GFR should not be used for calculating drug doses. 07/10/2024 8:15 AM STUDIO COORDINATOR Consuelo Kennedy NP LABORATORY Final Result [facility] [address] [place] [address], [place] [phone] * (ABNORMAL) CBC W/DIFF AUTOMATED (07/10/2024 8:15 AM STUDIO COORDINATOR) Only the most recent of6 resultswithin the time period is included. WBC 13.27(H) 4.5 - 11.0 x10'3/uL 07/10/2024 8:31 AM [facility] RBC 3.16(L) 4.70 - 6.10 x10'6/uL 07/10/2024 8:31 AM [facility] HGB 7.5(L) 14.0 - 18.0 G/DL 07/10/2024 8:31 AM [facility] HCT 24.1(L) 43.0 - 54.0 % 07/10/2024 8:31 AM [facility] MCV 76.3(L) 80.0 - 94.0 FL 07/10/2024 8:31 AM [facility] MCH 23.7(L) 27.0 - 31.0 PG 07/10/2024 8:31 AM [facility] MCHC 31.1(L) 32.0 - 36.0 G/DL 07/10/2024 8:31 AM [facility] RDW 15.2(H) 11.5 - 14.5 % 07/10/2024 8:31 AM [facility] PLT 475(H) 130 - 400 x10'3/uL 07/10/2024 8:31 AM [facility] MPV 9.9 9.3 - 12.2 FL 07/10/2024 8:31 AM [facility] DIFFERENTIAL TYPE AUTOMATED DIFFERENTIAL 07/10/2024 8:31 AM [facility] NEUTROPHILS % 87.5 % 07/10/2024 8:31 AM [facility] LYMPHOCYTES % 4.8 % 07/10/2024 8:31 AM [facility] MONOCYTES % 6.3 % 07/10/2024 8:31 AM [facility] EOSINOPHILS 0.5 % 07/10/2024 8:31 AM [facility] BASOPHILS 0.2 % 07/10/2024 8:31 AM [facility] IMMATURE GRANS % 0.7 % 07/10/19 8:31 AM [facility] ABS. NEUTROPHILS 11.63(H) 1.80 - 7.70 x10'3/uL 07/10/2024 8:31 AM [facility] ABS. LYMPHOCYTES 0.64(L) 1.00 - 4.80 x10'3/uL 07/10/2024 8:31 AM STUDIO COORDINATOR [facility] ABS. MONOCYTES 0.83(H) 0.30 - 0.82 x10'3/uL 07/10/2024 8:31 AM STUDIO COORDINATOR [facility] ABS. EOSINOPHILS 0.06 0.04 - 0.54 x10'3/uL 07/10/2024 8:31 AM STUDIO COORDINATOR [facility] ABS. BASOPHILS 0.02 0.01 - 0.08 x10'3/uL 07/10/2024 8:31 AM [facility] ABS. IMMATURE GRANULOCYTES 0.09 0.00 - 0.49 x10'3/uL 07/10/2024 8:31 AM [facility] 07/10/2024 8:15 AM STUDIO COORDINATOR us Consuelo Kennedy NP LABORATORY Final Result Performing Organization Address City/[facility]/ZIP Co de Phone Number [facility] [address] [place] [id number], [place] [phone] * MAGNESIUM (07/10/2024 8:15 AM STUDIO COORDINATOR) Only the most recent of2 resultswithin the time period is included. MAGNESIUM 1.8 1.8 - 2.4 MG/DL 07/10/2024 8:59 AM [facility] 07/10/2024 8:15 AM STUDIO COORDINATOR us Consuelo Kennedy NP LABORATORY Final Result Performing Organization Address City/[facility]/ZIP Co de Phone Number [facility] [address] [place] [address], [place] [phone] * LACTIC ACID W REFLEX (SEPSIS) (07/08/2024 6:21 PM STUDIO COORDINATOR) Only the most recent of3 resultswithin the time period is included. LACTIC ACID VENOUS 1.1 0.4 - 2.0 MMOL/L 07/08/2024 7:10 PM STUDIO COORDINATOR [facility] 07/08/2024 6:21 PM STUDIO COORDINATOR Benjamin Elise MD LABORATORY Final Result [facility] [address] [place] [address], [place] [phone] * CT HEAD WO CON (07/08/2024 6:02 PM STUDIO COORDINATOR) Anatomical Region Laterality Modality Head Computed Tomogra phy 07/08/2024 6:15 PM STUDIO COORDINATOR Impressions 07/08/2024 6:17 PM STUDIO COORDINATOR IMPRESSION: 1. No definite CT evidence of acute intracranial abnormality, as above. 2. Small vessel disease, old infarcts, and volume loss. Referred By: Interpreted By: Pantera Howe MD, 07/08/2024 6:15 PM Narrative 07/08/2024 6:17 PM STUDIO COORDINATOR [facility] [address] [place], [place] [address] EXAMINATION: CT of the head CLINICAL HISTORY: Mental status changes. Recent bladder mass removal. COMPARISON: 04/12/2022 TECHNIQUE: CT examination of the head without contrast was performed with axial and multiplanar reformatted images obtained. A dose lowering technique was used for this procedure, which may include, but is not limited to, dose reduction technique, automated exposure control, the use of iterative reconstruction, and ALARA (As Low As Reasonably Achievable) / Image Gently techniques. FINDINGS: No acute intracranial hemorrhage, extra-axial collections, intracranial mass effect, or midline shift. Patchy foci of hypodensity noted in the hemispheric white matter, likely due to small vessel disease. Intracranial vascular calcifications. No definite CT evidence of acute territorial infarction, though MRI would be more sensitive. Scattered old lacunar infarcts noted in the deep cobb nuclei. 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 Moderate volume loss with enlargement of the ventricles and extra-axial/subarachnoid spaces. Calvarium unremarkable. Mastoid air cells clear. Mild mucosal thickening in the paranasal sinuses. Right lens replacement. Procedure Note Pantera Howe MD - 07/08/2024 [facility] [address] [place], [place] [address] EXAMINATION: CT of the head CLINICAL HISTORY: Mental status changes. Recent bladder mass removal. COMPARISON: 04/12/2022 TECHNIQUE: CT examination of the head without contrast was performed withaxial and multiplanar reformatted images obtained. A dose lowering technique was used for this procedure, which may include,but is not limited to, dose reduction technique, automated exposurecontrol, the use of iterative reconstruction, and ALARA (As Low AsReasonably Achievable) / Image Gently techniques. FINDINGS: No acute intracranial hemorrhage, extra-axial collections, intracranialmass effect, or midline shift. Patchy foci of hypodensity noted in thehemispheric white matter, likely due to small vessel disease. Intracranialvascular calcifications. No definite CT evidence of acute territorialinfarction, though MRI would be more sensitive. Scattered old lacunarinfarcts noted in the deep cobb nuclei. Small old left cerebellarinfarcts. Moderate volume loss with enlargement of the ventricles andextra-axial/subarachnoid spaces. Calvarium unremarkable. Mastoid air cellsclear. Mild mucosal thickening in the paranasal sinuses. Right lensreplacement. IMPRESSION: 1. No definite CT evidence of acute intracranial abnormality, as above. 2. Small vessel disease, old infarcts, and volume loss. Referred By: Interpreted By: Pantera Howe MD, 07/08/2024 6:15 PM us Benjamin Elise MD CT Final Result * CT CHEST+ABD+PEL W CON (07/08/2024 6:02 PM STUDIO COORDINATOR) Anatomical Region Laterality Modality Chest, Abdomen, Pelvis Computed Tomography 07/08/2024 6:18 PM STUDIO COORDINATOR Impressions 07/08/2024 6:29 PM STUDIO COORDINATOR IMPRESSION: 1. Postsurgical changes of transurethral resection of bladder mass. Suggestion of residual 3.9 x 2.3 cm nodular enhancement along the inferior aspect of the bladder; cannot exclude residual neoplasm. Correlation with cystoscopy advised. 2. Circumferential bladder wall thickening. Could correlate with urinalysis for possibility of superimposed cystitis given stated history of sepsis. No drainable fluid collection identified. 3. Ill-defined infiltration/stranding in the perivesicular fat could be due to cystitis or neoplastic infiltration. 4. Prominent perivesicular lymph nodes and multiple enlarged and centrally necrotic iliac chain lymph nodes, likely metastatic. 5. Additional non-necrotic lymphadenopathy within the supraclavicular, retropectoral, mediastinal, and periaortic/pericaval regions. Uncertain whether metastatic or potentially secondary to an additional pathologic processes (e.g. lymphoma). Consider tissue sampling. 6. Please see above for additional chronic, incidental, and nonemergent findings elsewhere. Referred By: Interpreted By: Pantera Howe MD, 07/08/2024 6:18 PM Narrative 07/08/2024 6:29 PM STUDIO COORDINATOR [address] [address] EXAMINATION: CT Chest, Abdomen and Pelvis with contrast CLINICAL HISTORY: Mental status changes. Status post cystoscopy with transurethral resection of large bladder mass on 06/30/2024 . Sepsis. COMPARISON: CT abdomen and pelvis 06/22/2024. CT chest 07/31/2021 TECHNIQUE: Computed tomography of the chest, abdomen, and pelvis was performed after the administration of 100 mL Isovue-300 contrast according to routine protocol without immediate complication. A dose lowering technique was used for this procedure, which may include, but is not limited to, dose reduction technique, automated exposure control, the use of iterative reconstruction, and ALARA (As Low As Reasonably Achievable) / Image Gently techniques. FINDINGS: CHEST: Borderline heart size. No pleural or pericardial effusions. There are multiple prominent/enlarged supraclavicular, retropectoral, and mediastinal lymph nodes, largest measuring up to 2 cm in short axis in the paratracheal region. Coronary artery calcifications and/or stents. Atherosclerotic calcifications along the aorta and mediastinal great vessels. Top normal heart size. Gynecomastia. Trachea and proximal airways are grossly patent. Subpleural fibrotic changes noted in the lungs, greatest in the lung bases. Dependent atelectasis. Scattered parenchymal scars. No pneumothorax. No suspicious lung mass. ABDOMEN/PELVIS: Dependent gallstone and possible dependent sludge. No gallbladder wall thickening or pericholecystic fluid/inflammation. Tiny ovoid hypodensity in the left lobe of liver, indeterminate. Spleen, pancreas, and adrenal glands are unremarkable. Interval placement of bilateral nephroureteral stents. No hydronephrosis or hydroureter. Multiple bilateral renal cysts, largest on the right measuring up to 8.7 cm. There are multiple enlarged nonnecrotic appearing retroperitoneal lymph nodes in the periaortic, aortocaval, and pericaval regions. Atherosclerotic plaque and calcification noted along the abdominal aorta and its branches. Stomach and small bowel loops are nondilated. Appendix not well visualized. Scattered colonic diverticula. No findings of bowel obstruction. No free fluid or free air in the abdomen. The bladder is decompressed by a Dia catheter which limits assessment of the mucosa. Circumferential bladder wall thickening noted. Suggestion of a 3.9 x 2.3 cm nodular lesion along the posterior inferior aspect of the bladder (axial image 188 of 244); cannot exclude residual nonresected bladder neoplasm. There is hazy infiltration/stranding within the perivesicular fat which could be due to cystitis versus neoplastic infiltration. There are multiple suspicious perivesicular lymph nodes evident. In addition, there are multiple enlarged and centrally necrotic lymph nodes noted along the bilateral iliac chains, presumably metastatic. Pelvic vascular calcifications. BONES: Post surgical and degenerative changes noted in the spine. Procedure Note Pantera Howe MD - 07/08/2024 [facility] [address] EXAMINATION: CT Chest, Abdomen and Pelvis with contrast CLINICAL HISTORY: Mental status changes. Status post cystoscopy withtransurethral resection of large bladder mass on 06/30/2024 . Sepsis. COMPARISON: CT abdomen and pelvis 06/22/2024. CT chest 07/31/2021 TECHNIQUE: Computed tomography of the chest, abdomen, and pelvis wasperformed after the administration of 100 mL Isovue-300 contrast accordingto routine protocol without immediate complication. A dose lowering technique was used for this procedure, which may include,but is not limited to, dose reduction technique, automated exposurecontrol, the use of iterative reconstruction, and ALARA (As Low AsReasonably Achievable) / Image Gently techniques. FINDINGS: CHEST: Borderline heart size. No pleural or pericardial effusions. There aremultiple prominent/enlarged supraclavicular, retropectoral, andmediastinal lymph nodes, largest measuring up to 2 cm in short axis in theparatracheal region. Coronary artery calcifications and/or stents.Atherosclerotic calcifications along the aorta and mediastinal greatvessels. Top normal heart size. Gynecomastia. Trachea and proximal airwaysare grossly patent. Subpleural fibrotic changes noted in the lungs,greatest in the lung bases. Dependent atelectasis. Scattered parenchymalscars. No pneumothorax. No suspicious lung mass. ABDOMEN/PELVIS: Dependent gallstone and possible dependent sludge. No gallbladder wallthickening or pericholecystic fluid/inflammation. Tiny ovoid hypodensityin the left lobe of liver, indeterminate. Spleen, pancreas, and adrenalglands are unremarkable. Interval placement of bilateral nephroureteralstents. No hydronephrosis or hydroureter. Multiple bilateral renal cysts,largest on the right measuring up to 8.7 cm. There are multiple enlargednonnecrotic appearing retroperitoneal lymph nodes in the periaortic,aortocaval, and pericaval regions. Atherosclerotic plaque andcalcification noted along the abdominal aorta and its branches. Stomach and small bowel loops are nondilated. Appendix not wellvisualized. Scattered colonic diverticula. No findings of bowelobstruction. No free fluid or free air in the abdomen. The bladder is decompressed by a Dia catheter which limits assessment ofthe mucosa. Circumferential bladder wall thickening noted. Suggestion of a3.9 x 2.3 cm nodular lesion along the posterior inferior aspect of thebladder (axial image 188 of 244); cannot exclude residual nonresectedbladder neoplasm. There is hazy infiltration/stranding within theperivesicular fat which could be due to cystitis versus neoplasticinfiltration. There are multiple suspicious perivesicular lymph nodesevident. In addition, there are multiple enlarged and centrally necroticlymph nodes noted along the bilateral iliac chains, presumably metastatic.Pelvic vascular calcifications. BONES: Post surgical and degenerative changes noted in the spine. IMPRESSION: 1. Postsurgical changes of transurethral resection of bladder mass.Suggestion of residual 3.9 x 2.3 cm nodular enhancement along the inferioraspect of the bladder; cannot exclude residual neoplasm. Correlation withcystoscopy advised. 2. Circumferential bladder wall thickening. Could correlate withurinalysis for possibility of superimposed cystitis given stated historyof sepsis. No drainable fluid collection identified. 3. Ill-defined infiltration/stranding in the perivesicular fat could bedue to cystitis or neoplastic infiltration. 4. Prominent perivesicular lymph nodes and multiple enlarged and centrallynecrotic iliac chain lymph nodes, likely metastatic. 5. Additional non-necrotic lymphadenopathy within the supraclavicular,retropectoral, mediastinal, and periaortic/pericaval regions. Uncertainwhether metastatic or potentially secondary to an additional pathologicprocesses (e.g. lymphoma). Consider tissue sampling. 6. Please see above for additional chronic, incidental, and nonemergentfindings elsewhere. Referred By: Interpreted By: Pantera Howe MD, 07/08/2024 6:18 PM Benjamin Elise MD CT Final Result * (ABNORMAL) URINALYSIS (07/08/2024 5:29 PM STUDIO COORDINATOR) Only the most recent of2 resultswithin the time period is included. SPECIMEN TYPE URINE CLEAN CATCH 07/08/2024 5:33 PM STUDIO COORDINATOR [facility] COLOR (U) LIGHT YELLOW 07/08/2024 5:51 PM STUDIO COORDINATOR [facility] TRANSPARENCY TURBID 07/08/2024 5:51 PM STUDIO COORDINATOR [facility] SPECIFIC GRAVITY (U) 1.008 1.001 - 1.030 07/08/2024 5:51 PM STUDIO COORDINATOR [facility] U PH 6.5 5.0 - 9.0 07/08/2024 5:51 PM [facility] LEUKOCYTES (U) 500(A) NEGATIVE 07/08/2024 5:51 PM STUDIO COORDINATOR [facility] NITRITES NEGATIVE NEGATIVE 07/08/2024 5:51 PM [facility] PROTEIN RANDOM (U) 50(H) <30 MG/DL 07/08/2024 5:51 PM [facility] GLUCOSE (U) NORMAL NORMAL MG/DL 07/08/2024 5:51 PM [facility] KETONES MG/DL (U) NEGATIVE NEGATIVE MG/DL 07/08/2024 5:51 PM [facility] UROBILINOGEN NORMAL NORMAL MG/DL 07/08/2024 5:51 PM STUDIO COORDINATOR [facility] BILIRUBIN (U) NEGATIVE NEGATIVE MG/DL 07/08/2024 5:51 PM [facility] BLOOD (U) 2+(A) NEGATIVE 07/08/2024 5:51 PM [facility] WBC/HPF 74(H) <6 /HPF 07/08/2024 5:51 PM [facility] RBC/HPF 9(H) <6 /HPF 07/08/2024 5:51 PM [facility] URINE SPECIMEN OBTAINED BY CLEAN CATCH PROCEDURE / Unknown 07/08/2024 5:29 PM STUDIO COORDINATOR Howard Gilbert MD URINE ORDERABLES Final Result [facility] [address] [place] [address], [place] [phone] * (ABNORMAL) CULTURE URINE (07/08/2024 5:29 PM STUDIO COORDINATOR) Only the most recent of3 resultswithin the time period is included. SPEC DESCRIPTION URINE CLEAN CATCH 07/08/2024 5:33 PM STUDIO COORDINATOR [facility] SPECIAL REQUESTS NO SPECIAL REQUEST 07/08/2024 5:33 PM STUDIO COORDINATOR [facility] CULTURE RESULT 10,000-49,0 00 COL/ML ENTEROCOCCU S SPECIES (A) 07/10/2024 8:15 AM STUDIO COORDINATOR [facility] URINE SPECIMEN OBTAINED BY CLEAN CATCH PROCEDURE / Unknown 07/08/2024 5:29 PM STUDIO COORDINATOR 07/08/2024 5:38 PM STUDIO COORDINATOR Narrative Organism Antibiotic Method Susceptibility Enterococcus species AMPICILLIN SHAWN (VITEK) 8: Sensitive Enterococcus species NITROFURANTOIN SHAWN (VITEK) <=16: Sensitive Enterococcus species GENT. SYNERGY SCREEN SHAWN (VITEK) Sensitive Enterococcus species PENICILLIN G SHAWN (VITEK) 8: Sensitive us Howard Gilbert MD MICROBIOLOGY - GENERAL ORDERABLES Final Result [facility] [address] [place] [address], * (ABNORMAL) PRO-BRAIN NATRIURETIC PEPTIDE (07/08/2024 3:55 PM STUDIO COORDINATOR) Only the most recent of3 resultswithin the time period is included. PRO-B TYPE NATRIURETIC PEPTIDE 1,927(H) <450 PG/ML 07/08/2024 5:02 PM STUDIO COORDINATOR [facility] Comment: CUT POINTS ESTABLISHED BY [employer] ON NT PROBNP (ICON) STUDY (2006). AGE INDEPENDENT: <300 PG/ML HAS A 99% NEGATIVE PREDICTIVE VALUE FOR EXCLUDING ACUTE CHF <50 YEARS: >450 PG/ML IS CONSISTENT WITH ACUTE CHF 50-75 YEARS: >900 PG/ML IS CONSISTENT WITH ACUTE CHF >75 YEARS: >1800 PG/ML IS CONSISTENT WITH ACUTE CHF IN PATIENTS WITH RENAL INSUFFICIENCY (GFR <60), >1200 PG/ML YIELDS A DIAGNOSTIC SENSITIVITY AND SPECIFICITY OF 89% AND 72% FOR ACUTE CHF. 07/08/2024 3:55 PM STUDIO COORDINATOR Howard Gilbert MD LABORATORY Final R esult [facility] [address] [place] [address], * ECG 12 lead (07/08/2024 3:38 PM STUDIO COORDINATOR) Only the most recent of2 resultswithin the time period is included. 07/08/2024 3:38 PM STUDIO COORDINATOR Narrative [facility] ([facility] - 07/08/2024 4:20 PM STUDIO COORDINATOR [address] Test Date: 2024-07-08 Pat Name: MAYRA FERRARA Department: 41 Room: [place] [address] Gender: Male Principal Automation Engineer: ed : 1940 Requested By: BENJAMIN ELISE Order Number: [id number] Reading MD: Dylan Hu Measurements Intervals Rattan Rate: 76 P: 33 NC: 171 QRS: -46 QRSD: 130 T: 14 QT: 405 QTc: 456 Interpretive Statements SINUS RHYTHM LEFT AXIS DEVIATION [QRS AXIS < -30] RIGHT BUNDLE BRANCH BLOCK [120+ ms QRS DURATION, UPRIGHT V1, 40+ ms S IN I/aVL/V4/V5/V6] MINIMAL VOLTAGE CRITERIA FOR LVH, CONSIDER NORMAL VARIANT [MEETS CRITERIA IN ONE OF: R(aVL), S(V1), R(V5), R(V5/V6)+S(V1)] POSSIBLE SEPTAL MYOCARDIAL INFARCTION , PROBABLY OLD [30 ms Q WAVE IN V1/V2] Compared to ECG 06/22/2024 14:46:22 Left-axis deviation now present Left anterior fascicular block no longer present Myocardial infarct finding still present IO COORDINATOR Procedure Note Dylan Hu MD - 07/08/[address] Test Date: 2024-07-08 Pat Name: MAYRA FERRARA Department: 41 Room: [place] [address] Gender: Male Principal Automation Engineer: ed : 1940 Requested By: BENJAMIN ELISE Order Number: [id number] Reading MD: Dylan Hu Measurements Intervals Rattan Rate: 76 P: 33 NC: 171 QRS: -46 QRSD: 130 T: 14 QT: 405 QTc: 456 Interpretive Statements SINUS RHYTHM LEFT AXIS DEVIATION [QRS AXIS < -30] RIGHT BUNDLE BRANCH BLOCK [120+ ms QRS DURATION, UPRIGHT V1, 40+ ms SIN I/aVL/V4/V5/V6] MINIMAL VOLTAGE CRITERIA FOR LVH, CONSIDER NORMAL VARIANT [MEETS CRITERIAIN ONE OF: R(aVL), S(V1), R(V5), R(V5/V6)+S(V1)] POSSIBLE SEPTAL MYOCARDIAL INFARCTION , PROBABLY OLD [30 ms Q WAVE INV1/V2] Compared to ECG 06/22/2024 14:46:22 Left-axis deviation now present Left anterior fascicular block no longer present Myocardial infarct finding still present IO COORDINATOR us Benjamin Elise MD ECG ORDERABLES Final Result [facility] ([facility]) RAD * (ABNORMAL) HEMOGLOBIN, GLYCOSYLATED (07/08/2024 3:17 PM STUDIO COORDINATOR) HGB A1C 6.2(H) <5.7 % 07/09/2024 3:46 PM STUDIO COORDINATOR [facility] Comment: ADA GUIDELINES 2010 5.7 TO 6.4% INCREASED RISK OF DIABETES > OR = 6.5% CONSISTENT WITH DIABETES ESTIMATED AVG GLUCOSE 131 mg/dL 07/09/2024 3:46 PM STUDIO COORDINATOR [facility] 07/08/2024 3:17 PM STUDIO COORDINATOR us Stuart Stevenson MD LABORATORY Final Result [facility] [address] [place] [address], [place] [phone] * (ABNORMAL) IRON SAT PANEL (IRON,IBC,%SAT) (07/08/2024 3:15 PM STUDIO COORDINATOR) Only the most recent of2 resultswithin the time period is included. IRON 12(L) 65.0 - 175.0 MCG/DL 07/09/2024 3:44 AM STUDIO COORDINATOR [facility] IRON BINDING CAPACITY 163(L) 250 - 450 MCG/DL 07/09/2024 3:44 AM STUDIO COORDINATOR [facility] IRON SATURATION 7(L) 20 - 55 % 3:44 AM STUDIO COORDINATOR [facility] 07/08/2024 3:15 PM STUDIO COORDINATOR us Stuart Stevenson MD LABORATORY Final Result Performing Organization Address City/[facility]/ZIP Co de Phone Number [facility] [address] [place] [address], [place] [phone] * (ABNORMAL) RETICULOCYTE CT, AUTO (07/08/2024 3:15 PM STUDIO COORDINATOR) RETICULOCYTE COUNT 1.5 0.8 - 2.1 % 07/09/2024 3:56 AM STUDIO COORDINATOR [facility] ABSOLUTE RETICULOCYTE 0.05 0.03 - 0.11 x10'6/uL 07/09/2024 3:56 AM STUDIO COORDINATOR [facility] IMMATURE RETIC FRACTION 11.6 2.3 - 13.4 % 07/09/2024 3:56 AM STUDIO COORDINATOR [facility] RETIC HGB 22.6(L) 28.0 - 35.0 PG 07/09/2024 3:56 AM STUDIO COORDINATOR [facility] 07/08/2024 3:15 PM STUDIO COORDINATOR Stuart Stevenson MD LABORATORY Final Result Performing Organization Address City/[facility]/ZIP Co de Phone Number [facility] [address] [place] [address], [place] [phone] * FOLIC ACID SERUM (07/08/2024 3:15 PM STUDIO COORDINATOR) FOLATE 7.1 3.1 - 17.5 NG/ML 07/09/2024 3:44 AM STUDIO COORDINATOR [facility] 07/08/2024 3:15 PM STUDIO COORDINATOR Stuart Stevenson MD LABORATORY Final Result Performing Organization Address City/[facility]/ZIP Co de Phone Number [facility] [address] [place] [address], [place] [phone] * CULTURE, BACTERIA, BLOOD (07/08/2024 3:15 PM STUDIO COORDINATOR) Only the most recent of2 resultswithin the time period is included. SPEC DESCRIPTION BLOOD 07/08/2024 2:17 PM STUDIO COORDINATOR [facility] SPECIAL REQUESTS NO SPECIAL REQUEST 07/08/2024 2:17 PM STUDIO COORDINATOR [facility] CULTURE RESULT NO GROWTH 5 DAYS 07/13/2024 7:14 AM STUDIO COORDINATOR [facility] BLOOD SPECIMEN OBTAINED FOR BLOOD CULTURE / Unknown 07/08/2024 3:15 PM STUDIO COORDINATOR 07/08/2024 3:25 PM STUDIO COORDINATOR Benjamin Elise MD MICROBIOLOGY - GENERA L ORDERABLES Final Result Performing Organization Address [facility] Co de Phone Number [facility] [address] [place] [address], [place] [phone] * TROPONIN, QUANT (07/08/2024 3:15 PM STUDIO COORDINATOR) Only the most recent of2 resultswithin the time period is included. TROPONIN I HIGH SENSITIVITY 10 <79 ng/L 07/08/2024 4:13 PM STUDIO COORDINATOR [facility] Comment: HIGH DOSES OF BIOTIN, TROPONIN-SPECIFIC AUTOANTIBODIES, AND ANTIBODY THERAPY CONTAINING HAMA MAY INTERFERE WITH THIS TEST RESULT. CORRELATION TO CLINICAL HISTORY AND PRESENTATION RECOMMENDED. 07/08/2024 3:15 PM STUDIO COORDINATOR Benjamin Elise MD LABORATORY Final Result Performing Organization Address [facility] Co de Phone Number [facility] [address] [place] [address], [place] [phone] * (ABNORMAL) FERRITIN (07/08/2024 3:15 PM STUDIO COORDINATOR) Only the most recent of2 resultswithin the time period is included. Pathologist [facility] [place] FERRITIN 1,015.2(H) 8.0 - 388.0 NG/ML 07/09/2024 3:44 AM STUDIO COORDINATOR [facility] 07/08/2024 3:15 PM STUDIO COORDINATOR Stuart Stevenson MD LABORATORY Final Result Performing Organization Address [facility] Co de Phone Number [facility] [address] [place] [address], [place] [phone] * XR CHEST PORTABLE (07/08/2024 3:02 PM STUDIO COORDINATOR) Only the most recent of2 resultswithin the time period is included. Anatomical Region Laterality Modality Chest Radiographic Ashley ging 07/08/2024 3:04 PM STUDIO COORDINATOR Impressions 07/08/2024 3:07 PM STUDIO COORDINATOR IMPRESSION: No acute pulmonary infiltrate or consolidation. No acute pulmonary vascular congestion. Ordered By: BENJAMIN ELISE Interpreted By: Ricky Nguyen, 07/08/2024 3:04 PM Narrative 07/08/2024 3:07 PM STUDIO COORDINATOR [facility] [address] [place], [place] [address] IMAGING STUDIES: XR CHEST PORTABLE DATE: 07/08/2024 2:53 PM HISTORY: sob 83-year-old male. Weakness. History of removal of bladder tumor on 06/30/2024 with continuing bleeding. Reportedly has follow-up urology appointment on 07/16/2024. COMPARISON: Chest portable CT abdomen pelvis with contrast 06/22/2024. DISCUSSION: Portable AP upright view of the chest. Heart size is within normal limits for AP projection. No acute pulmonary vascular congestion. Aortic atherosclerotic calcifications. No acute pulmonary infiltrate, pulmonary consolidation, pleural effusion, or pneumothorax. Degenerative changes spine and shoulders. Procedure Note Ricky Nguyen MD - 07/08/2024 [facility] [address] [place], [place] [address] IMAGING STUDIES: XR CHEST PORTABLEDATE: 07/08/2024 2:53 PM HISTORY: sob 83-year-old male. Weakness. History of removal of bladdertumor on 06/30/2024 with continuing bleeding. Reportedly has follow-upurology appointment on 07/16/2024. COMPARISON: Chest portable CT abdomen pelvis with contrast 06/22/2024. DISCUSSION: Portable AP upright view of the chest. Heart size is within normal limits for AP projection. No acute pulmonaryvascular congestion. Aortic atherosclerotic calcifications. No acute pulmonary infiltrate, pulmonary consolidation, pleural effusion,or pneumothorax. Degenerative changes spine and shoulders. IMPRESSION: No acute pulmonary infiltrate or consolidation. No acute pulmonaryvascular congestion. Ordered By: BENJAMIN ELISE Interpreted By: Ricky Nguyen, 07/08/2024 3:04 PM us Benjamin Elise MD GENERAL IMAGING Final Result * (ABNORMAL) BASIC METABOLIC PANEL (07/01/2024 4:14 AM STUDIO COORDINATOR) Only the most recent of2 resultswithin the time period is included. GLUCOSE 139(H) 70 - 99 MG/DL 07/01/2024 4:33 AM [facility] BUN 20(H) 7 - 18 MG/DL 07/01/2024 4:33 AM [facility] CREATININE S/P/B 1.59(H) 0.7 - 1.3 MG/DL 07/01/2024 4:33 AM [facility] SODIUM S/P/B 132(L) 136 - 145 MMOL/L 07/01/2024 4:33 AM [facility] POTASSIUM S/P/B 4.0 3.5 - 5.1 MMOL/L 07/01/2024 4:33 AM [facility] CHLORIDE S/P/B 97(L) 100 - 108 MMOL/L 07/01/2024 4:33 AM [facility] CO2 25.0 21 - 32 MMOL/L 07/01/2024 4:33 AM [facility] CALCIUM S/P/B 9.1 8.5 - 10.1 MG/DL 07/01/2024 4:33 AM [facility] ANION GAP 10.0 5 - 15 MMOL/L 07/01/2024 4:33 AM [facility] BUN CREATININE RATIO 12.6 6 - 26 07/01/2024 4:33 AM [facility] GFR ESTIMATE 43(L) >90 ML/MIN/1.7 3 M2 07/01/2024 4:33 AM STUDIO COORDINATOR [facility] Comment: NOTE: eGFR is not calculated for patients <18 years of age. This is an estimated GFR calculation using the new CKD EPI creatinine equation without race and so does not require a correction factor for race. This estimated GFR should not be used for calculating drug doses. 07/01/2024 4:14 AM STUDIO COORDINATOR us Hernandez Hernandez MD LABORATORY Fi nal Result [facility] [address] [place] [phone], * SURG XR RETROGRD UROGRAPHY (06/30/2024 1:31 PM STUDIO COORDINATOR) Anatomical Region Laterality Modality Abdomen Radiographic Ashley ging 06/30/2024 2:14 PM STUDIO COORDINATOR Impressions 06/30/2024 2:16 PM STUDIO COORDINATOR IMPRESSION: 2 fluoroscopic images 0.3 minutes fluoroscopy time 1.7 Gycm2 3.8 mGy Referred By: Interpreted By: Ayden Moran MD, 06/30/2024 2:14 PM Narrative 06/30/2024 2:16 PM STUDIO COORDINATOR [address] [address] EXAM: SURG XR RETROGRD UROGRAPHY DATE: 06/30/2024 1304 hours INDICATION: Transurethral resection of a bladder tumor. Bilateral retrograde pyelogram. TECHNIQUE: Fluoroscopic imaging FINDINGS/ Procedure Note Ayden Moran MD - 06/30/[address] [address] EXAM: SURG XR RETROGRD UROGRAPHY DATE: 06/30/2024 1304 hours INDICATION: Transurethral resection of a bladder tumor. Bilateralretrograde pyelogram. TECHNIQUE: Fluoroscopic imaging FINDINGS/ IMPRESSION: 2 fluoroscopic images 0.3 minutes fluoroscopy time 1.7 Gycm2 3.8 mGy Referred By: Interpreted By: Ayden Moran MD, 06/30/2024 2:14 PM us Nixon Harding MD IMAGES ONLY Final Result * Pathology (06/30/2024 12:00 AM STUDIO COORDINATOR) PATHOLOGY [facility] Department of Laboratory Medicine [address] [place] [phone] , extension [phone] Pathology Report Surgical Pathology Report Name: MAYRA FERRARA Specimen #: [id number] Age: 7 1940 (Age: 83) Location: [facility] Sex: M Procedure Date: 06/30/2024 Hospital #: [id number] Date Received: 07/01/2024 Date Reported: 07/06/2024 Provider: NIXON HARDING MD Source: Bladder, mass Clinical History: Chronic cystitis and acquired hydronephrosis FINAL DIAGNOSIS: Bladder tumor, transurethral resection: -Invasive high-grade urothelial carcinoma, see comment. -Muscularis propria is present and extensively involved by carcinoma. Diagnosis Comment: Sections show invasive high-grade urothelial carcinoma with areas of glandular, squamous, and sarcomatoid differentiation. Immunohistochemical stains performed on block A5 show the carcinoma is positive for AE1/AE3, CK7, CK20 (focal), GATA3, p63, uroplakin II (focal), and CDX2 (focal), and negative for NKX3.1, supporting the diagnosis. The case is reviewed by Dr. Julianna Curran with concurrence. IC: MELANIE Gross Description: Received in formalin, labeled with a patient label and as bladder tumor are multiple pieces of merida tissue, 4 x 4 x 3 cm in aggregate. Vegetable Scullion tissue is submitted in cassettes 1 through 10. Gross examination (when applicable), interpretation, and sign out were performed at [facility], [address] [place] [address]. All immunohistochemical and histochemical tests were developed by and performed at [facility], [address] [place] [address]. All tests reported here have not been cleared or approved by the U.S. Food and Drug Administration (FDA). This laboratory is regulated under CLIA as qualified to perform high-complexity testing. These tests are used for clinical purposes. They should not be regarded as investigational or for research. Positive and negative controls show appropriate reactivity. Electronically Signed Out PADDY HOLLAND MD [facility] TISSUE URINARY BLADDER STRUCTURE / Unknown 06/30/2024 12:40 PM STUDIO COORDINATOR us Nixon Harding MD PATHOLOGY/CYTOLOGY ORDERABLES F inal Result Performing Organization Address City/[facility] Co de Phone Number [facility] [address] [place] [address], [place] [phone] * OCCULT BLOOD, FECES (06/23/2024 9:10 PM STUDIO COORDINATOR) OCCULT BLOOD FECAL NEGATIVE NEGATIVE 06/24/2024 7:09 AM STUDIO COORDINATOR [facility] STOOL SPECIMEN / Unknown 06/23/2024 9:10 PM STUDIO COORDINATOR us Abilio Murillo MD BODY FLUIDS AND STOOLS ORDERABL ES Final Result [facility] [address] [place] [address], [place] [phone] * USE ECHOCARDIOGRAM (06/23/2024 10:15 AM STUDIO COORDINATOR) Anatomical Region Laterality Modality Cardiac Echocardiogram 06/23/2024 9:45 AM STUDIO COORDINATOR Narrative 06/23/2024 5:07 PM STUDIO COORDINATOR Echocardiography Report Pat.Name: MAYRA FERRARA.ID: [id number] St.Date: 06/23/2024 : [id number] DEVANG Blackburn Exam Time: 9:45:00 AM Study Type:ECHO WITH CARDIAC DOPPLER COMP Height: 72 in Weight: 190 lb BSA: 2.08 m2 Age: 7 1940,83Y Sex: M BP: 130/54 HR: 70 bpm Sonogrphr: Barbie Quan Pat. Stat.:Inpatient Room: [facility] Reason for Study:Congestive heart failure Procedures: 2D, M-mode, Doppler, Color Flow, The study quality is technically adequate. Race: W ++++++++++++++++++++++++++++++++++++ SUMMARY: ++++++++++++++++++++++++++++++++++++ The left ventricular size is normal. The left ventricular systolic function is normal. Estimated left ventricular ejection fraction is 60-65%. Mild concentric left ventricular hypertrophy. Left ventricular diastolic function is abnormal (grade 2 - pseudonormal pattern). The right ventricular size is normal. Right ventricular systolic function is normal. The left atrial volume is mildly increased (34- 41ml/M2). No evidence of pericardial effusion. The peak pulmonary artery systolic pressure is estimated to be approximately 35 mmHg. Trace mitral regurgitation. Mild tricuspid regurgitation. ++++++++++++++++++++++++++++++++++++ FINDINGS: ++++++++++++++++++++++++++++++++++++ LV: The left ventricular size is normal. The left ventricular systolic function is normal. Estimated left ventricular ejection fraction is 60-65%. Mild concentric left ventricular hypertrophy. Left ventricular diastolic function is abnormal (grade 2 - pseudonormal pattern). WM: Wall motion appears normal in all segments. RV: The right ventricular size is normal. Right ventricular systolic function is normal. IVS: No evidence of ventricular septal defect. LA: The left atrial size is mildly enlarged. The left atrial volume is mildly increased (34- 41ml/M2). RA: Right atrial size is normal. IAS: Atrial septum appears intact. JP: No evidence of pericardial effusion. AO: Aorta is normal. PA: The peak pulmonary artery systolic pressure is estimated to be approximately 35 mmHg. Estimated right atrial pressure of 3 mmHg. SVn: Systemic veins are normal. AV: The aortic valve is trileaflet. No evidence of aortic valve stenosis. Mild aortic regurgitation. Mild aortic valve sclerosis. MV: Structurally normal mitral valve. Trace mitral regurgitation. No evidence of mitral stenosis. PV: Trace pulmonic regurgitation. No evidence of pulmonic valve stenosis. Pulmonic valve not well visualized. TV: Structurally normal tricuspid valve. Mild tricuspid regurgitation. No evidence of tricuspid valve stenosis. ++++++++++++++++++++++++++++++++++++ MEASUREMENTS: ++++++++++++++++++++++++++++++++++++ 2D Left Ventricle LVIDd 4.45 cm (3.6-5.2) Aorta Ao Asc 3.29 cm (2.1-3.4) Aortic Valve Aortic Root Marily 3.93 cm Left Atrium Left Atrium Vol 38.2 ml/m2 LA Biplane Left Atrium Vol 79.4 ml LA Single Plane Left Atrium eileen 6.69 cm Left Atrium eileen 5.98 cm Left Atrium Vol 72.9 ml Left Atrium Vol 77.9 ml LV Teichholz Interventricula 1.62 cm Left Ventricle 3.21 cm Left Ventricle 1.25 cm Heart rate 72 Heart beat per minute Right Atrium RA sys Area 17.4 cm2 Right Ventricle Right Ventricul 2.8 cm RVIDd 3.54 cm MMODE Tricuspid Valve Tricuspid annul 2.77 cm DOPPLER Pulmonary Veins PVnpkVeld 52 cm/s Pulmonary Vein 0.72 m/s PVnVs/Vd 1.38 AR-wave velocit 0.25 m/s S1-wave velocit 0.48 m/s Aortic Valve Cardiovascular 2.04 cm LVOT/AoV (MAIL CARRIER) ( 0.59 AV Antegrade Flow Peak Velocity ( 1.75 m/s Mean Velocity ( 1.19 m/s Velocity Time I 35.6 cm AV Antegrade Flow Simplified Bernoulli Gradient pressu 12.3 mmHg Gradient pressu 6.1 mmHg AV Continuity Equation by Velocity Time Integral Aortic Valve Ar 2.22 cm2 AoV Area Index 1.07 Left Ventricle Stroke Volume ( 78.9 ml Cardiac Output 5.6 liter per minute LV Antegrade Flow Peak Velocity ( 1.03 m/s Mean Velocity ( 0.76 m/s Velocity Time I 24.1 cm LV Antegrade Flow Simplified Bernoulli Gradient pressu 4.2 mmHg Gradient pressu 2.5 mmHg Mitral Valve Myocardial Velo 9.7 centimeter/second Mean Myocardial 7.4 centimeter/second Myocardial Velo 5.1 centimeter/second Ratio of Mitral 10.1 Mitral Valve E- 0.237 second Ratio of Mitral 7.69 Mitral Valve E 0.79 Ratio of Mitral 14.6 MV Antegrade Flow Mitral Valve A- 0.94 m/s PV Antegrade Flow PV Vmax (Diasto 1.18 m/s PV Antegrade Flow Simplified Bernoulli PV PGmax (Systo 5.6 mmHg TV Regurgitant Flow MaximumTricuspi 2.82 m/s MaximumTricuspi 31.9 mmHg <Electronic Signature> 06/23/2024 05:07 PM Abilio Murillo M.D. Procedure Note Abilio Murillo MD - 06/23/2024 Echocardiography Report Pat.Name: MAYRA FERRARA.ID: [id number] .Date: 06/23/2024 : [id number] DEVANG Blackburn Exam Time: 9:45:00 AM Study Type:ECHO WITH CARDIAC DOPPLER COMP Height: 72 in Weight: 190 lb BSA: 2.08 m2 Age: 7 1940,83Y Sex: M BP: 130/54 HR: 70 bpm Sonogrphr: Barbie Quan Pat. Stat.:Inpatient Room: [facility] Reason for Study:Congestive heart failure Procedures: 2D, M-mode, Doppler, Color Flow, The study quality is technically adequate. Race: W ++++++++++++++++++++++++++++++++++++ SUMMARY: ++++++++++++++++++++++++++++++++++++ The left ventricular size is normal. The left ventricular systolic function is normal. Estimated left ventricular ejection fraction is 60-65%. Mild concentric left ventricular hypertrophy. Left ventricular diastolic function is abnormal (grade 2 - pseudonormal pattern). The right ventricular size is normal. Right ventricular systolic function is normal. The left atrial volume is mildly increased (34- 41ml/M2). No evidence of pericardial effusion. The peak pulmonary artery systolic pressure is estimated to be approximately 35 mmHg. Trace mitral regurgitation. Mild tricuspid regurgitation. ++++++++++++++++++++++++++++++++++++ FINDINGS: ++++++++++++++++++++++++++++++++++++ LV: The left ventricular size is normal. The left ventricular systolic function is normal. Estimated left ventricular ejection fraction is 60-65%. Mild concentric left ventricular hypertrophy. Left ventricular diastolic function is abnormal (grade 2 - pseudonormal pattern). WM: Wall motion appears normal in all segments. RV: The right ventricular size is normal. Right ventricular systolic function is normal. IVS: No evidence of ventricular septal defect. LA: The left atrial size is mildly enlarged. The left atrial volume is mildly increased (34- 41ml/M2). RA: Right atrial size is normal. IAS: Atrial septum appears intact. JP: No evidence of pericardial effusion. AO: Aorta is normal. PA: The peak pulmonary artery systolic pressure is estimated to be approximately 35 mmHg. Estimated right atrial pressure of 3 mmHg. SVn: Systemic veins are normal. AV: The aortic valve is trileaflet. No evidence of aortic valve stenosis. Mild aortic regurgitation. Mild aortic valve sclerosis. MV: Structurally normal mitral valve. Trace mitral regurgitation. No evidence of mitral stenosis. PV: Trace pulmonic regurgitation. No evidence of pulmonic valve stenosis. Pulmonic valve not well visualized. TV: Structurally normal tricuspid valve. Mild tricuspid regurgitation. No evidence of tricuspid valve stenosis. ++++++++++++++++++++++++++++++++++++ MEASUREMENTS: ++++++++++++++++++++++++++++++++++++ 2D Left Ventricle LVIDd 4.45 cm (3.6-5.2) Aorta Ao Asc 3.29 cm (2.1-3.4) Aortic Valve Aortic Root Marily 3.93 cm Left Atrium Left Atrium Vol 38.2 ml/m2 LA Biplane Left Atrium Vol 79.4 ml LA Single Plane Left Atrium eileen 6.69 cm Left Atrium eileen 5.98 cm Left Atrium Vol 72.9 ml Left Atrium Vol 77.9 ml LV Teichholz Interventricula 1.62 cm Left Ventricle 3.21 cm Left Ventricle 1.25 cm Heart rate 72 Heart beat per minute Right Atrium RA sys Area 17.4 cm2 Right Ventricle Right Ventricul 2.8 cm RVIDd 3.54 cm MMODE Tricuspid Valve Tricuspid annul 2.77 cm DOPPLER Pulmonary Veins PVnpkVeld 52 cm/s Pulmonary Vein 0.72 m/s PVnVs/Vd 1.38 AR-wave velocit 0.25 m/s S1-wave velocit 0.48 m/s Aortic Valve Cardiovascular 2.04 cm LVOT/AoV (MAIL CARRIER) ( 0.59 AV Antegrade Flow Peak Velocity ( 1.75 m/s Mean Velocity ( 1.19 m/s Velocity Time I 35.6 cm AV Antegrade Flow Simplified Bernoulli Gradient pressu 12.3 mmHg Gradient pressu 6.1 mmHg AV Continuity Equation by Velocity Time Integral Aortic Valve Ar 2.22 cm2 AoV Area Index 1.07 Left Ventricle Stroke Volume ( 78.9 ml Cardiac Output 5.6 liter per minute LV Antegrade Flow Peak Velocity ( 1.03 m/s Mean Velocity ( 0.76 m/s Velocity Time I 24.1 cm LV Antegrade Flow Simplified Bernoulli Gradient pressu 4.2 mmHg Gradient pressu 2.5 mmHg Mitral Valve Myocardial Velo 9.7 centimeter/second Mean Myocardial 7.4 centimeter/second Myocardial Velo 5.1 centimeter/second Ratio of Mitral 10.1 Mitral Valve E- 0.237 second Ratio of Mitral 7.69 Mitral Valve E 0.79 Ratio of Mitral 14.6 MV Antegrade Flow Mitral Valve A- 0.94 m/s PV Antegrade Flow PV Vmax (Diasto 1.18 m/s PV Antegrade Flow Simplified Bernoulli PV PGmax (Systo 5.6 mmHg TV Regurgitant Flow MaximumTricuspi 2.82 m/s MaximumTricuspi 31.9 mmHg <Electronic Signature> 06/23/2024 05:07 PM Abilio Murillo M.D. us Abilio Murillo MD ECHO Final Result * US ABD LIMITED (06/23/2024 8:37 AM STUDIO COORDINATOR) Anatomical Region Laterality Modality Abdomen Ultrasound 06/23/2024 8:55 AM STUDIO COORDINATOR Impressions 06/23/2024 9:19 AM STUDIO COORDINATOR IMPRESSION: 1. Cholelithiasis with single mobile gallstone. No ultrasound findings of cholecystitis. No biliary ductal dilation. 2. Mild right hydronephrosis as also noted on CT and attributed to right bladder mass. Multiple right renal cysts with largest cyst 8.8 cm. No specific follow-up of these cysts is required per consensus guidelines. 3. Partially obscured pancreas. Ordered By: KENNY DUQUE Interpreted By: Ricky Nguyen, 06/23/2024 8:55 AM Narrative 06/23/2024 9:19 AM STUDIO COORDINATOR [address] [address] IMAGING STUDIES: US ABD LIMITED DATE: 06/23/2024 7:51 AM HISTORY: Elevated LFT's 83-year-old male. Elevated liver function tests (on 06/22/2024, AST 188, ALT 200). Current inpatient and reportedly admitted for chief complaint of dizziness. Reported history of bladder mass and has scheduled bladder biopsy on 06/30/2024. COMPARISON: CT abdomen pelvis with contrast 06/22/2024. DISCUSSION: Liver echogenicity within normal limits. Liver length of 18.8 cm (on CT, craniocaudal liver length of 17.2 cm). No focal hepatic mass or intrahepatic biliary ductal dilatation. 5 mm left hepatic cyst on CT is not evident on the current sonogram. Color doppler imaging of the hepatic veins, inferior vena cava and portal vein and pulse Doppler imaging of the portal vein. Appropriate flow direction in the portal vein and normal color Doppler imaging of the interrogated venous system. Adequately distended gallbladder. Single mobile gallstone of approximately 1.2 cm maximal dimension (single gallstone also noted on CT). Gallbladder wall is 2.4 mm thickness (on CT, gallbladder wall was not thickened). No sonographic Couch's sign. Common bile duct is normal at 3.7 mm diameter. Bowel gas obscures the pancreatic head, distal body, and tail. No appreciable acute abnormality of the visualized pancreas. Right kidney 12.9 x 6.3 x 5.6 cm (not including the largest cyst). Mild right hydronephrosis is also noted on CT study and secondary to a right-sided urinary bladder mass which is partially obstructing the ureter. Multiple right renal cysts as also noted on CT. The largest cyst is approximately 8.8 x 6.9 x 8.3 cm with mild lobulations and several septations of up to 3.5 mm thickness (approximately 8.7 x 7.7 x 7.[address] with thin septations in the superior aspect). Normal color Doppler signal within the right kidney. Procedure Note Ricky Nguyen MD - 06/23/2024 [place] [id number] IMAGING STUDIES: US ABD LIMITEDDATE: 06/23/2024 7:51 AM HISTORY: Elevated LFT's 83-year-old male. Elevated liver functiontests (on 06/22/2024, AST 188, ALT 200). Current inpatient and reportedlyadmitted for chief complaint of dizziness. Reported history of bladdermass and has scheduled bladder biopsy on 06/30/2024. COMPARISON: CT abdomen pelvis with contrast 06/22/2024. DISCUSSION: Liver echogenicity within normal limits. Liver length of 18.8 cm (on CT,craniocaudal liver length of 17.2 cm). No focal hepatic mass orintrahepatic biliary ductal dilatation. 5 mm left hepatic cyst on CT isnot evident on the current sonogram. Color doppler imaging of the hepatic veins, inferior vena cava and portalvein and pulse Doppler imaging of the portal vein. Appropriate flowdirection in the portal vein and normal color Doppler imaging of theinterrogated venous system. Adequately distended gallbladder. Single mobile gallstone of approximately1.2 cm maximal dimension (single gallstone also noted on CT). Gallbladderwall is 2.4 mm thickness (on CT, gallbladder wall was not thickened). Nosonographic Couch's sign. Common bile duct is normal at 3.7 mm diameter. Bowel gas obscures the pancreatic head, distal body, and tail. Noappreciable acute abnormality of the visualized pancreas. Right kidney 12.9 x 6.3 x 5.6 cm (not including the largest cyst). Mildright hydronephrosis is also noted on CT study and secondary to aright-sided urinary bladder mass which is partially obstructing theureter. Multiple right renal cysts as also noted on CT. The largest cystis approximately 8.8 x 6.9 x 8.3 cm with mild lobulations and severalseptations of up to 3.5 mm thickness (approximately 8.7 x 7.7 x 7.[address] with thin septations in the superior aspect). Normal color Dopplersignal within the right kidney. IMPRESSION: 1. Cholelithiasis with single mobile gallstone. No ultrasound findings ofcholecystitis. No biliary ductal dilation. 2. Mild right hydronephrosis as also noted on CT and attributed to rightbladder mass. Multiple right renal cysts with largest cyst 8.8 cm. Nospecific follow-up of these cysts is required per consensus guidelines. 3. Partially obscured pancreas. Ordered By: KENNY DUQUE Interpreted By: Ricky Nugyen, 06/23/2024 8:55 AM Kenny Duque DO ULTRASOUND Final Result * GGT, GAMMA GLUTAMYLTRANSFERASE (06/23/2024 6:02 AM STUDIO COORDINATOR) GGT 39 15.0 - 85.0 U/L 06/25/2024 5:15 PM STUDIO COORDINATOR [facility] 06/23/2024 6:02 AM STUDIO COORDINATOR Kenny Duque DO LABORATORY Final Result [facility] [address] [place] [address], [place] [phone] * TSH W/REFLEX (06/22/2024 10:29 PM STUDIO COORDINATOR) TSH 2.420 0.358 - 3.74 uIU/ML 06/23/2024 11:09 AM STUDIO COORDINATOR [facility] Comment: HIGH DOSES OF BIOTIN MAY INTERFERE WITH THIS TEST RESULT. CORRELATION TO CLINICAL HISTORY AND PRESENTATION RECOMMENDED. FREE T4 NOT INDICATED 06/22/2024 10:2 9 PM STUDIO COORDINATOR Abilio Murillo MD LABORATORY Final Result [facility] [address] [place] [address], [place] [phone] * CT ABD+PEL W IV CON ONLY (06/22/2024 6:25 PM STUDIO COORDINATOR) Anatomical Region Laterality Modality Abdomen Computed Tomogra phy 06/22/2024 6:36 PM STUDIO COORDINATOR Impressions 06/22/2024 6:48 PM STUDIO COORDINATOR IMPRESSION: 1. Large irregular bladder mass compatible with bladder malignancy. 2. There is associated right-sided hydronephrosis and hydroureter. 3. 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 There are enlarged bilateral metastatic pelvic lymph nodes. 4. Cholelithiasis without secondary evidence of acute cholecystitis. Ordered By: ALEXUS VASQUEZ Interpreted By: Brian Whittaker DO, 06/22/2024 6:36 PM Narrative 06/22/2024 6:48 PM STUDIO COORDINATOR [facility] [address] [place], [place] [address] EXAMINATION: CT abdomen/pelvis with contrast HISTORY: Weakness. Abdominal pain. Fever. Elevated liver enzymes. Concern for bladder cancer. COMPARISON: None. TECHNIQUE: Axial CT images of the abdomen and pelvis after the uneventful intravenous administration of 100 mL of Isovue-370 given through the right antecubital fossa. Sagittal and coronal reformatted image sets. A dose lowering technique was used for this procedure, which may include, but is not limited to, dose reduction technique, automated exposure control, the use of degenerative reconstruction, and ALARA/image gently techniques. FINDINGS: Lower chest: The included lung bases are negative for acute appearing abnormality. The heart is normally sized. Upper abdomen: The liver is normal in size and contour. There is a tiny benign cyst within the lateral left lobe of the liver. There is a small gallstone. No secondary evidence of acute cholecystitis. There is no biliary ductal dilatation. No acute-appearing pancreatic abnormalities. The spleen is normally sized. No evidence of splenic mass. No adrenal masses. Kidneys: The kidneys enhance symmetrically. There is right-sided hydronephrosis and hydroureter. No visible urolithiasis. This is related to a large right-sided bladder mass, highly suggestive of bladder malignancy. Vascular: There is atherosclerotic calcification of the abdominal aorta which remains normal caliber. Bowel/mesentery: No ascites or free intraperitoneal air. There is no bowel obstruction. No definite colonic or enteric inflammatory changes. No acute appearing gastric abnormalities. Pelvis: There is a large irregular bladder mass compatible with bladder malignancy. There is associated right-sided hydronephrosis and hydroureter. 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 There are there are enlarged bilateral metastatic pelvic lymph nodes . There are small bilateral fat- containing inguinal hernias. Trace free pelvic fluid. Osseous: There are multi site degenerative changes throughout the spine and the pelvis. There are postsurgical changes involving the lumbar spine. Other findings: None. Procedure Note Brian Whittaker DO - 06/22/[address] [address] EXAMINATION: CT abdomen/pelvis with contrast HISTORY: Weakness. Abdominal pain. Fever. Elevated liver enzymes. Concern forbladder cancer. COMPARISON: None. TECHNIQUE: Axial CT images of the abdomen and pelvis after the uneventful intravenousadministration of 100 mL of Isovue-370 given through the right antecubitalfossa. Sagittal and coronal reformatted image sets. A dose lowering technique was used for this procedure, which may include,but is not limited to, dose reduction technique, automated exposurecontrol, the use of degenerative reconstruction, and ALARA/image gentlytechniques. FINDINGS: Lower chest: The included lung bases are negative for acute appearingabnormality. The heart is normally sized. Upper abdomen: The liver is normal in size and contour. There is a tinybenign cyst within the lateral left lobe of the liver. There is a smallgallstone. No secondary evidence of acute cholecystitis. There is nobiliary ductal dilatation. No acute-appearing pancreatic abnormalities.The spleen is normally sized. No evidence of splenic mass. No adrenalmasses. Kidneys: The kidneys enhance symmetrically. There is right-sidedhydronephrosis and hydroureter. No visible urolithiasis. This is relatedto a large right-sided bladder mass, highly suggestive of bladdermalignancy. Vascular: There is atherosclerotic calcification of the abdominal aortawhich remains normal caliber. Bowel/mesentery: No ascites or free intraperitoneal air. There is no bowelobstruction. No definite colonic or enteric inflammatory changes. No acuteappearing gastric abnormalities. Pelvis: There is a large irregular bladder mass compatible with bladdermalignancy. There is associated right-sided hydronephrosis andhydroureter. There are numerous metastatic enlarged retroperitoneal lymphnodes. There are there are enlarged bilateral metastatic pelvic lymphnodes . There are small bilateral fat- containing inguinal hernias. Tracefree pelvic fluid. Osseous: There are multi site degenerative changes throughout the spineand the pelvis. There are postsurgical changes involving the lumbarspine. Other findings: None. IMPRESSION: 1. Large irregular bladder mass compatible with bladder malignancy. 2. There is associated right-sided hydronephrosis and hydroureter. 3. There are numerous metastatic enlarged retroperitoneal lymph nodes.There are enlarged bilateral metastatic pelvic lymph nodes. 4. Cholelithiasis without secondary evidence of acute cholecystitis. Ordered By: ALEXUS VASQUEZ Interpreted By: Brian Whittaker DO, 06/22/2024 6:36 PM us Alexus Vasquez SUPERVISOR DRILLING AND SHOOTING CT Final Resul t * CORONAVIRUS (COVID 19) (06/22/2024 2:28 PM STUDIO COORDINATOR) CORONAVIRUS SARS COV 2 RNA NEGATIVE NEGATIVE 06/22/2024 3:09 PM STUDIO COORDINATOR [facility] Comment: NEGATIVE RESULTS DO NOT RULE OUT COVID 19 AND SHOULD NOT BE USED THE SOLE BASIS FOR TREATMENT OR PATIENT MANAGEMENT DECISIONS, INCLUDING INFECTION CONTROL DECISIONS. NEGATIVE RESULTS SHOULD BE CONSIDERED IN THE CONTEXT OF A PATIENT'S RECENT EXPOSURES, HISTORY AND THE PRESENCE OF CLINICAL SIGNS AND SYMPTOMS CONSISTENT WITH COVID 19. THE ID NOW COVID-19 2.0 TEST HAS BEEN AUTHORIZED BY THE FDA UNDER EAU FOR USE BY AUTHORIZED LABORATORIES. PERFORMED BY NUCLEIC ACID AMPLIFICATION FOR MOLECULAR QUALITATIVE DETECTION OF SARS-COV-2. SPECIMEN TYPE NASAL 06/22/2024 2:28 PM STUDIO COORDINATOR [facility] NASAL STRUCTURE / Unknown 06/22/2024 2:28 PM STUDIO COORDINATOR Alexus Vas[facility] MICROBIOLOG[facility] - GENERAL GENEVIEVE LEDBETTER Final Result [facility] [address] [place] [address], * INFLUENZA A & B (06/22/2024 2:28 PM STUDIO COORDINATOR) Pathologist [facility] [place] SPECIMEN TYPE NASAL 06/22/2024 2:46 PM STUDIO COORDINATOR [facility] INFLUENZA A NEGATIVE NEGATIVE 06/22/2024 3:09 PM STUDIO COORDINATOR [facility] INFLUENZA B NEGATIVE NEGATIVE 06/22/2024 3:09 PM STUDIO COORDINATOR [facility] Comment: Interpretation: Negative for Influenza A and B. A negative result does not exclude influenza virus infection. If influenza is circulating in your community, a diagnosis of influenza should be considered based on a patient's clinical presentation and empiric antiviral treatment should be considered, if indicated. If more conclusive testing is needed for hospitalized inpatients, follow-up confirmatory testing with RT-PCR requires a separate order. NASOPHARYNGEAL SWAB / Unknown 06/22/2024 2:28 PM STUDIO COORDINATOR us Alexus Vasquez SUPER[employer] D[employer]LL[employer] SHOOTING MICROBIOLOGY - GENERAL ORDE RABLES Final Result Performing Organization Address City/[facility] Co de Phone Number [facility] [address] [place] [address], [place] [phone] * ELECTROCARDIOGRAM (06/22/2024 1:29 PM STUDIO COORDINATOR) 06/22/2024 1:29 PM STUDIO COORDINATOR Narrative [facility] - 06/22/2024 7:59 PM STUDIO COORDINATOR [facility] Test Date: 2024-06-22 [facility] Department[facility] 112 Room: Gender: Male Principal Automation Engineer: : [id number] Requested By: ABILIO MURILLO Order Number: [id number] Reading MD: Abilio Murillo Measurements Intervals Rattan Rate: 84 P: 26 NC: 160 QRS: -62 QRSD: 124 T: 35 QT: 374 QTc: 443 Interpretive Statements SINUS RHYTHM WITH OCCASIONAL VENTRICULAR PREMATURE COMPLEXES RIGHT BUNDLE BRANCH BLOCK LEFT ANTERIOR FASCICULAR BLOCK IO COORDINATOR Procedure Note Abilio Murillo MD - 06/22/2024 [facility] Test Date: 2024-06-22 Pat Name: [facility] Department: 112 Room: Gender: Male Principal Automation Engineer: : 1940 Requested By: ABILIO MURILLO Order Number: [id number] Reading : Abilio Murillo Measurements Intervals Rattan Rate: 84 P: 26 NC: 160 QRS: -62 QRSD: 124 T: 35 QT: 374 QTc: 443 Interpretive Statements SINUS RHYTHM WITH OCCASIONAL VENTRICULAR PREMATURE COMPLEXES RIGHT BUNDLE BRANCH BLOCK LEFT ANTERIOR FASCICULAR BLOCK IO COORDINATOR Abilio Murillo MD PROCEDURES-ORDERABLE NO CHARGE Final Result [facility] * USV ART EXER W GAB LOW EXT (05/03/2024 4:38 PM STUDIO COORDINATOR) Anatomical Region Laterality Modality Extremity Vascular Ultraso und 05/03/2024 2:07 PM STUDIO COORDINATOR Narrative 05/04/2024 3:25 PM STUDIO COORDINATOR ARTERIAL DOPPLER - GAB BILATERAL LOWER EXTREMITY VASCULAR LAB Pat.Name: MAYRA FERRARA.ID: [id number] .Date: 05/03/2024 Refer.MD: RAISA SIMMONS Exam Time: 2:07:00 PM Study Type:MILAN VS Arterial Doppler Legs TRACEY Height: 72 in Age: 7 1940,83Y Sex: M Sonogrphr: JM MIRANDA RVT Pat. Stat.:Outpatient History / Clinical:LEFT KNEE PAIN, FEELS LIKE WILL GIVE OUT NO PRIOR Procedures: Doppler waveforms, Digit PPG, Systolic Pressures w/GAB Race: W ++++++++++++++++++++++++++++++++++++ SUMMARY: ++++++++++++++++++++++++++++++++++++ Laverne GAB Criteria: >1.30 = falsely elevated, calcified vessels; 1.00-1.29 = no signif ischemia at rest ; .80-.99 = mild PAD, asymptomatic; .50-.79 = moderate PAD, claudication; <.50 = severe PAD, rest pain; <.30 = critical PAD, necrosis, poor healing (Digits: DBI >.60 Normal; <.60 Abnormal) (Positive Stress eval: GAB decrease of >.20 or >20% pressure drop) Right leg: Common Femoral waveform is triphasic, high amplitude; Popliteal triphasic, high amplitude; Posterior Tibial triphasic, high amplitude with GAB 1.2 ; DP/Anterior Tibial triphasic, high amplitude with GAB 1.27 . Digit flow by PPG is medium amplitude with DBI 0.6 . Left leg: Common Femoral waveform is triphasic, high amplitude; Popliteal triphasic, high amplitude; Posterior Tibial triphasic, high amplitude with GAB 1.28 ; DP/Anterior Tibial triphasic, high amplitude with GAB 1.27 . Digit flow by PPG is low amplitude with DBI 0.467 . CONCLUSION: GAB right > 1.0 with triphasic waveforms, with toe index 0.6 . GAB left > 1.0 with triphasic waveforms, with toe index 0.467 . No significant peripheral arterial disease at rest. No evidence of tibial artery disease bilaterally. There is evidence of small vessel disease or embolism in the left foot. ++++++++++++++++++++++++++++++++++++ MEASUREMENTS: ++++++++++++++++++++++++++++++++++++ PRESSURES Right Brachial Brach P 150 mmHg Right Ankle DP AnkleDP P 190 mmHg Right Ankle PT AnklePT P 180 mmHg Right Great Toe GreatToe P 90 mmHg Right GAB PT GAB PT 1.2 Right GAB DP GAB DP 1.27 Right TBI TBI 0.6 Left Brachial Brach P 150 mmHg Left Ankle DP AnkleDP P 190 mmHg Left Ankle PT AnklePT P 192 mmHg Left Great Toe GreatToe P 70 mmHg Left GAB PT GAB PT 1.28 Left GAB DP GAB DP 1.27 Left TBI TBI 0.467 <Electronic Signature> 05/04/2024 03:25 PM Benjamin Wyatt M.D. Procedure Note Benjamin Wyatt MD - 05/04/2024 ARTERIAL DOPPLER - GAB BILATERAL LOWER EXTREMITY VASCULAR LAB Pat.Name: MAYRA FERRARA.ID: [id number] .Date: 05/03/2024 Refer.MD: RAISA SIMMONS Exam Time: 2:07:00 PM Study Type:MILAN VS Arterial Doppler Legs TRACEY Height: 72 in Age: 7 1940,83Y Sex: M Sonogrphr: MJ MIRANDA T Pat. Stat.:Outpatient History / Clinical:LEFT KNEE PAIN, FEELS LIKE WILL GIVE OUT NO PRIOR Procedures: Doppler waveforms, Digit PPG, Systolic Pressures w/GAB Race: W ++++++++++++++++++++++++++++++++++++ SUMMARY: ++++++++++++++++++++++++++++++++++++ Laverne GAB Criteria: >1.30 = falsely elevated, calcified vessels; 1.00-1.29 = no signif ischemia at rest ; .80-.99 = mild PAD, asymptomatic; .50-.79 = moderate PAD, claudication; <.50 = severe PAD, rest pain; <.30 = critical PAD, necrosis, poor healing (Digits: DBI >.60 Normal; <.60 Abnormal) (Positive Stress eval: GAB decrease of >.20 or >20% pressure drop) Right leg: Common Femoral waveform is triphasic, high amplitude; Popliteal triphasic, high amplitude; Posterior Tibial triphasic, high amplitude with GAB 1.2 ; DP/Anterior Tibial triphasic, high amplitude with GAB 1.27 . Digit flow by PPG is medium amplitude with DBI 0.6 . Left leg: Common Femoral waveform is triphasic, high amplitude; Popliteal triphasic, high amplitude; Posterior Tibial triphasic, high amplitude with GAB 1.28 ; DP/Anterior Tibial triphasic, high amplitude with GAB 1.27 . Digit flow by PPG is low amplitude with DBI 0.467 . CONCLUSION: GAB right > 1.0 with triphasic waveforms, with toe index 0.6 . GAB left > 1.0 with triphasic waveforms, with toe index 0.467 . No significant peripheral arterial disease at rest. No evidence of tibial artery disease bilaterally. There is evidence of small vessel disease or embolism in the left foot. ++++++++++++++++++++++++++++++++++++ MEASUREMENTS: ++++++++++++++++++++++++++++++++++++ PRESSURES Right Brachial Brach P 150 mmHg Right Ankle DP AnkleDP P 190 mmHg Right Ankle PT AnklePT P 180 mmHg Right Great Toe GreatToe P 90 mmHg Right GAB PT GAB PT 1.2 Right GAB DP GAB DP 1.27 Right TBI TBI 0.6 Left Brachial Brach P 150 mmHg Left Ankle DP AnkleDP P 190 mmHg Left Ankle PT AnklePT P 192 mmHg Left Great Toe GreatToe P 70 mmHg Left GAB PT GAB PT 1.28 Left GAB DP GAB DP 1.27 Left TBI TBI 0.467 <Electronic Signature> 05/04/2024 03:25 PM Benjamin Wyatt M.D. Abilio Murillo MD [facility] Final Result * LIPID PANEL (07/10/2023 2:03 PM STUDIO COORDINATOR) CHOLESTEROL 97 <200 mg/dL [place] HDL 52 > OR = 40 mg/dL [place] TRIGLYCERIDES 98 <150 mg/dL [place] LDL (CALCULATED) 27 mg/dL (calc) [place] Comment: Reference range: <100 Desirable range <100 mg/dL for primary prevention; <70 mg/dL for patients with CHD or diabetic patients with > or = 2 CHD risk factors. LDL-C is now calculated using the Solomon-Kaveh calculation, which is a validated novel method providing better accuracy than the Friedewald equation in the estimation of LDL-C. Solomon MELENDEZ et al. ARIC. 2013;310(19): 1692-7471 (http://education.[employer]faq/VCU128) CHOL/HDL RATIO 1.9 <5.0 (calc) [place] NON HDL CHOLESTEROL 45 <130 mg/dL (calc) [place] Comment: For patients with diabetes plus 1 major ASCVD risk factor, treating to a non-HDL-C goal of <100 mg/dL (LDL-C of <70 mg/dL) is considered a therapeutic option. 07/10/2023 2:03 PM STUDIO COORDINATOR 07/11/2023 1:42 AM STUDIO COORDINATOR Narrative Resulting Agency Comment Performing Organization Information: Site ID: [email or web address] Name: [email or web address] Address: [address] [place] [address] Director: Jian Nevarez Jono Villafuerte MD LABORATORY Final Resul t Right Hemisphere [place], [place] [id number] [place] [phone], from Last 3 Months or Most Recently Relevant to Health Maintenance Insurance [facility] [id number] [place] [id number] Advance Directives Documents on File Type Date Recorded Patient Vegetable Scullion Expl anation Advance Directives and Livin g Will 01/08/2023 10:43 AM Living Will Advance Directives and Livin g Will 01/09/2023 6:15 AM LIVING WILL * Full Code (Latest Code Status on File) Date Activated Date Inactivated Comments 07/08/2024 10:17 PM 07/10/2024 12:51 PM * Full Code Date Activated Date Inactivated Comments 06/22/2024 8:32 PM 06/24/2024 3:03 PM * Full Code Date Activated Date Inactivated Comments 05/03/2022 12:48 AM 05/11/2022 12:54 PM * Full Code Date Activated Date Inactivated Comments 04/09/2022 11:11 AM 04/09/2022 4:30 PM Care Teams Ems Coordinator Relationship Specialty Start Date End Date Patricia Lee FNP [facility] [place] [address] PCP - General Nurse Practitioner Family 07/01/24 Sam Weber MD [address] [place] [address] Referring Physician ORTHOPAEDICS 05/31/21 Wayne Connor DO [address] [facility] [address] [place] [address] Consulting Physician Internal Medicine Pulmonary Disease 06/10/22 Mara Quigley MD [facility] [address] [place] [address] Consulting Physician CLINICAL CARDIAC ELECTROPHYSIOLOGY 06/10/22 Abilio Murillo MD [facility] [address] [place] [address] Consulting Physician CARDIOVASCULAR DISEASE 06/10/22
--- OUTSIDE RECORDS SUMMARY | 2024-07-22 12:34 | XMS_ITS | Referral Summary ---
Author Organization [facility] Address [address] [place] [address] Care Team Providers Care Medical Sales Specialist Name Role Phone Jono Villafuerte MD Primary Care Provider + Encounters Date Type Department Care Team Description 05/27/2024 2:52 PM RETAIL TIRE SALES MANAGER - 05/27/2024 11:59 PM RETAIL TIRE SALES MANAGER Hospital Encounter [facility] [address] [place] [id number] Hematuria, unspecified type Discharge Disposition: Discharge to home or self care 05/27/2024 1:18 PM RETAIL TIRE SALES MANAGER - 05/27/2024 11:59 PM RETAIL TIRE SALES MANAGER Hospital Encounter [facility] [address] [place] [address] Diagnosis unknown Discharge Disposition: Discharge to home or self care 05/27/2024 11:00 AM RETAIL TIRE SALES MANAGER Office Visit [facility] [address] [place] [phone] Lobito Zamora MD Hematuria, unspecified type (Primary Dx); Nocturia 05/21/2024 Telephone [facility] [address] [place] [phone] Mehta, Juli, RMA from Last 3 Months Allergies Active Allergy Reactions Criticality Noted Date [...] 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 Status cardiac pacemaker 04/09/2022 Overview (05/27/2024): NATHALIE ZAYAS PACEMAKER IMPLANTED 04/09/22 FOR SSS Bradycardia 03/06/2022 [...] 03/10/2017 Herniated cervical disc 08/22/2016 Atrial flutter (CMS/HCC) 11/28/2015 Social History Tobacco Use Types Packs/Day Years [...] on file Sexual Orientation Not on file Last Filed Vital Signs Vital Sign Reading Time Taken Comments Blood Pressure 114/63 05/27/2024 11:28 AM RETAIL TIRE SALES MANAGER Pulse 85 05/27/2024 11:28 AM RETAIL TIRE SALES MANAGER Temperature 36.6 C (97.9 F) 06/14/2015 9:54 AM RETAIL TIRE SALES MANAGER Respiratory Rate - - Oxygen Saturation 97% 06/14/2015 9:54 AM RETAIL TIRE SALES MANAGER Inhaled Oxygen Concentration - - Weight 103.4 kg (228 lb) 08/22/2016 7:30 AM CDT Height 182.9 cm (6') 08/22/2016 7:30 AM CDT Body Mass Index 30.92 08/22/2016 7:30 AM CDT Plan of Treatment Not on file Procedures Procedure Name Priority Date/Time Associated Diagnosis Comments CT BODY OUTSIDE CONSULT Routine 05/27/2024 1:18 PM RETAIL TIRE SALES MANAGER Diagnosis unknown URINALYSIS, MICROSCOPIC ONLY Routine 05/27/2024 12:04 PM RETAIL TIRE SALES MANAGER Hematuria, unspecified type URINALYSIS AND REFLEX TO MICROSCOPIC Routine 05/27/2024 12:04 PM RETAIL TIRE SALES MANAGER Hematuria, unspecified type URINE CULTURE Routine 05/27/2024 12:04 PM RETAIL TIRE SALES MANAGER Hematuria, unspecified type POCT URINALYSIS DIPSTICK Routine 05/27/2024 11:34 AM RETAIL TIRE SALES MANAGER Hematuria, unspecified type from Last 3 Months Results * CT Body Outside Consult (05/27/2024 1:18 PM RETAIL TIRE SALES MANAGER) Anatomical Region Laterality Modality Body N/A Computed Tomogra phy 05/27/2024 1:37 PM RETAIL TIRE SALES MANAGER Impressions 05/27/2024 1:37 PM RETAIL TIRE SALES MANAGER 1. Poorly defined semicircumferential bladder mass with [...] images may or may not represent the eagle source data set and thus may contain changes that may lower the accuracy of this second-opinion interpretation. Electronically signed by: Braden Casillas M.D. Narrative 05/27/2024 1:37 PM RETAIL TIRE SALES MANAGER EXAMINATION: RADIOLOGY CONSULTATION ON OUTSIDE IMAGING STUDY STUDY INITIALLY PERFORMED: 05/18/2024 at [facility]. TYPE OF STUDY: Multiple CT [...] IMAGING STUDY STUDY INITIALLY PERFORMED: 05/18/2024 at [facility]. TYPE OF STUDY: Multiple CT [...] images may or may not represent the eagle source data set and thus may contain changes that may lower the accuracy of this second-opinion interpretation. Electronically signed by: Braden Casillas M.D. Lobito Zamora MD [facility] PROCEDURES Final Result * (ABNORMAL) Urinalysis reflex to microscopic (05/27/2024 12:04 PM RETAIL TIRE SALES MANAGER) Color, ur Red(A) Yellow Comment:Testing performed by : [facility], [address] [place] [address]., [address] Clarity, ur Turbid(A) Clear EDWIGE Comment:Testing performed by : [address] [address] Specific gravity, ur 1.015 1.003 - 1.030 [facility]E Comment:Testing performed by : [address], [place]., [address] pH, urine 6.0 EDWIGE Comment: Interpretive Data U rine pH is affected by diet, medications, systemic acid-base disturbances, and renal tubular function. pH may affect urinary stone formation. For example, urine pH below 6.0 may help reduce the tendency for calcium phosphate stones and pH greater than 6.0 may reduce the tendency for uric acid stone formation. Source: [facility] [employer] Current Interpretive Data was last revised on 2017 Testing performed by: [address], [place]., [address] Protein, ur ql 2+(A) Negative EDWIGE Comment:Testing performed by : [address] [address] Glucose, ur ql Negative Negative EDWIGE Comment:Testing performed by : [address] [address] Ketones, ur Negative Negative EDWIGE Comment:Testing performed by : [address] [address] Bilirubin, ur Negative Negative EDWIGE Comment:Testing performed by : [address] [address] Blood, ur 3+(A) Negative EDWIGE Comment:Testing performed by : [address] [address] Urobilinogen, ur <2.0 <2.0 mg/dL EDWIGE Comment:Testing performed by : [address] [address] Nitrite, ur Negative Negative EDWIGE Comment:Testing performed by : [address] [address] Leukocyte esterase, ur 4+(A) Negative EDWIGE Comment:Testing performed by : [address] [address] UA reflex comment Reflex to microscopic UA will be performed. EDWIGE Comment:Testing performed by : [address] [address] Urine 05/27/2024 12:0 4 PM RETAIL TIRE SALES MANAGER 05/27/2024 4:37 PM RETAIL TIRE SALES MANAGER Lobito Zamora MD LAB URINE ORDERABLES Final Resul t Performing Organization Address [facility] de Phone Number EDWIG[facility] [employer] [address] * (ABNORMAL) Urinalysis, microscopic only (05/27/2024 12:04 PM RETAIL TIRE SALES MANAGER) WBC, ur >50(A) 0 - 5 /HPF Comment:Testing performed by : [address] [address] RBC, ur >50(A) 0 - 2 /HPF EDWIGE Comment:Testing performed by : [address] [address] Bacteria, ur 4+(A) EDWIGE Comment:Testing performed by : [address] [address] Yeast, ur 2+(A) EDWIGE Comment:Testing performed by : [address] [address] Mucous, ur Present(A) EDWIGE Comment:Testing performed by : [address] [address] Hyaline casts, ur 1-5 0 - 10 /LPF ED[facility]IGE Comment:Testing performed by : [address] [address] Urine 05/27/2024 12:0 4 PM RETAIL TIRE SALES MANAGER 05/27/2024 4:37 PM RETAIL TIRE SALES MANAGER Lobito Zamora MD LAB URINE ORDERABLES Final Resul t Performing Organization Address [facility] Co de Phone Number ED[facility] [address] [facility] [employer] [address] * Urine culture Urine, bladder (05/27/2024 12:04 PM RETAIL TIRE SALES MANAGER) Report Final Report: No growth Comment:Testing performed by : [facility], [address] [place]., [address] Urine, bladder 05/27/2024 12 :04 PM RETAIL TIRE SALES MANAGER 05/27/2024 8:25 PM RETAIL TIRE SALES MANAGER Narrative EDWIGE - 05/29/2024 7:27 AM RETAIL TIRE SALES MANAGER Testing performed by [facility] ([phone]) Lobito Zamora MD LAB MICROBIOLOGY - GENERAL ORDER KOMAL Final Result ED[facility]IG[facility] [address] [facility] Department [place] [address] * (ABNORMAL) POCT urinalysis dipstick (05/27/2024 11:34 AM RETAIL TIRE SALES MANAGER) Color, Urine, POC Red Clarity, ur, POC Cloudy(A) Clear Glucose, ur, POC Negative Negative MG/DL Bilirubin, ur, POC Negative Negative, Small, Moderate, Large Ketones, ur, POC Negative Negative Specific [place], POC 1.015 1.003 - 1.030 Blood, ur, POC 3+(A) Negative pH, ur, POC 6.0 5.0 - 8.0 Protein, ur, POC 2+(A) Negative Urobilinogen, urine, POC 0.2 0.2 - 1.0 mg/dL Nitrite, ur, POC Negative Negative Leukocytes, ur, POC 3+(A) Negative Lot Number 0 Urine 05/27/2024 11:3 4 AM RETAIL TIRE SALES MANAGER Lobito Zamora MD POINT OF CARE TEST ORDERABLES Fi nal Result from Last 3 Months Insurance MEDICARE SOLUTIONS [facility] HMO REF MEDICARE SOLUTIONS Care Teams Medical Sales Specialist Relationship Specialty Start Date End Date Jono Villafuerte MD PCP - General Family Medicine 07/06/19
--- OUTSIDE RECORDS SUMMARY | 2024-07-22 12:34 | XMS_ITS | Data Portability ---
Author Organization [place] [facility] [facility], Main Office Address [address] [place] [address] Care Team Providers Care Tube Operator Name Role Phone VICKY LOMBARDO Primary Care Provider [phone] VICKY LOMBARDO Referring Provider Assessment Encounter Date Assessment Date Assessment LastModified by Organization Details LastModified Time 08/01/2022 08/01/2022 Patient returns knee pain left. I got an MRI a year ago which was show degenerative changes in the meniscus but not a complete tear. His mechanical symptoms and catching and pain in the medial aspect of his right knee I think it is time to get an MRI scan of it the cortisone helped did last and the prednisone did take care of his pain either. We will proceed with an MRI I will see him back after this is done reassess at that point. If he has a tear he will require arthroscopic intervention discussed. [email or web address] Not available 08/01/2022 13:01:54 09/05/2022 09/05/2022 Patient has knee pain left. His he has an MRI scan that was read as no meniscal tear. I think that he has a meniscal tear medially and he certainly has symptoms with mechanical see a catching and locking. He has a hard time getting around with that. We will try an injection this done with 20 mg Kenalog 4 cc 1% lidocaine. For prescription drug management he would like to wait as he is having multiple medical tests coming up in the next few weeks. He has neck and back problems as well as recent stroking is on Plavix which makes anti-inflammato ry medication not feasible. Not available 09/05/2022 13:39:13 Plan of Treatment Reminders Order Date Submit Date Provider Last Modified By Organization Details Last Modified Time Details Appointments None recorded. Lab None recorded. Referral None recorded. Procedures injection/a spiration joint/bursa (PROC) - in office procedure, administere d by provider 2022 023 In-Office Order, Internal Use Only DO Not Attach Compendium DO Not Attach Compendium, Do Not Delete/merge, [id number] 13:32:37 Surgeries None recorded. Imaging XR, knee, 3 view 2022 023 [email or web address] [facility] [place], [address], [place], [address], 3 13:14:53 MRI, knee, w/o contrast 2022 023 [facility], [address], [place], [address], 3 10:28:08 Medication Orders Kenalog 10 mg/mL suspension for injection 2022 023 [employer] [id number], [address] [place], [place], [id number], 3 13:41:54 ropivacaine (PF) 5 mg/mL (0.5 %) injection solution 2022 023 [employer] [facility] #[id number], [address], [place], [id number], 3 13:41:54 Patient TargetsNo targets recorded. Patient InstructionsNo instructions recorded. Reason for Referral None Reported. Results Created Date Observation Date Name Description Value Unit Range Abnormal Flag Note LastModifiedBy Organization Detail LastModifiedTime 06/14/19 XR, knee, 3 view No observ ation record ed. [id number].[id number] [facility] [place] [address], [place], [address], 07/31/2022 13:15:16 06/27/19 22 06/27/2021 MRI, knee, w/o contr ast No observ ation record ed. [id number] [facility] [address], [place], [address], 07/31/2022 13:15:16 06/27/19 22 [facility] [address] [place] [address] Patien t Name: MAYRA LOMELI Access ion #: [id number] Sex: M : 1940 Locati on: IND Attend ing Physic diaz: Salinas carrasco Physic diaz: AB CARROLL Exam Date: 022 9:54 AM Exam Name: MRI KNEE LT WO Admitt ing Diagno sis(es ): RADIOL OGY REPORT - FINAL EXAM: MRI KNEE LT WO HISTOR Y: Compla ins of left knee weakne ss with pain medial ly, no histor y of trauma COMPAR CARMEN: Radiog raph 2021 TECHNI QUE: Multip lanar multis equenc e noncon trast MR images of the left knee were perfor med. FINDIN GS: Osseou s: Osteoa rthrit ic residu als are noted the proxim al tibiof ibular articu lation . No acute proces s. Cartil age: Modera te to severe femora l patell ar joint chondr omalac ic residu als. Mild to modera te mediol ateral compar tment chondr omalac ia. Page 1 of 2 [facility] Patipaco t Name: MAYRA LOMELI Access ion #: [id number] Sex: M : 1940 Exam Date: 022 9:54 AM Exam Name: MRI KNEE LT WO Admitt ing Diagno sis(es ): Joint space: Unrema rkable Ligame nts: The ACL, PCL, MCL, LCL, laila ceps tendon , and the retina cular tissue s are intact . Tendon s: Preser guevara Small Stock Facer olater al corner : Unrema rkable Medial menisc us: No eviden ce of a commun icatin g tear. Latera l menisc us:Int act IMPRES MERNA: See above. Create d and electr onical ly signed by: Shin newell MD Signed Date: 11:25 AM (CT) Dictat ed by: Shin newell MD DD: 11:25 AM (CT) DT: 11:25 AM (CT) Page 2 of 2 MIGRATION.[id number] [facility] (Imaging) [address] [place], [address], 07/31/2022 13:15:16 07/24/19 22 XR, cervi marika spine , 2 or 3 view No observ ation record ed. [id number].[id number] [facility] [place] [address] [facility] [address], [place], [address], 07/31/2022 13:15:16 07/24/19 22 XR, thora cic spine No observ ation record ed. [id number].[id number] [facility] [place] [address] [facility] [address], [place], [address], 07/31/2022 13:15:16 08/02/19 22 MRI, cervi marika spine , w/o contr ast [facility] [address] [place] [address] [phone] Patien t Name: MAYRA LOMELI Access ion #: [id number] Sex: M : 1940 Locati on: IND Attend ing Physic diaz: Salinas carrasco Physic diaz: AB CARROLL Exam Date: 08/02/19 12:44 PM Exam Name: MRI C SPINE WO Admitt ing Diagno sis(es ): RADIOL OGY REPORT - FINAL EXAM: MRI C SPINE WO HISTOR Y: Neck pain COMPAR CARMEN: None. TECHNI QUE: Multip lanar multis equenc e noncon trast images are review ed and cervic al spine. FINDIN GS: Osseou s: No eviden ce of a fractu re malali gnment Spinal cord: Unrema rkable Prever tebral soft tissue s: Unrema rkable Page 1 of 3 [facility] t Name: MAYRA LOMELI Access ion #: [id number] Sex: M : 1940 Exam Date: 08/02/19 12:44 PM Exam Name: MRI C SPINE WO Admitt ing Diagno sis(es ): Disc spaces : Degene rative disc-d esicca tion signal intens ity change s noted at C2-3 C3-4 C4-5 C6-7 and C7-T1 C2-3: Otherw ise unrema rkable C3-4: Otherw ise unrema rkable C4-5: A bulgin g degene rate annulu s result s in modera te to severe centra l spinal stenos is. Degene rative etiolo gy modera te left and mild right neural forami nal stenos is. C5-6: Left uncove rtebra l joint hypert rophy result s in modera te left neural forami nal stenos is. Mild-t o-mode rate neural forami nal stenos is. C6-7: There is a small left clinical editor olater al disc protru merna presen t result ing mild left neural forami nal stenos is and modera te left pre forami nal stenos is. C7-T1: Otherw ise unrema rkable Parave rtebra l soft tissue s: Unrema rkable IMPRES MERNA: See above Create d and electr onical ly signed by: Shin newell MD Signed Date: 08/02/19 2:25 PM (CT) Page 2 of 3 [facility] t Name: MAYRA LOMELI Access ion #: [id number] Sex: M : 1940 Exam Date: 08/02/19 12:44 PM Exam Name: MRI C SPINE WO Admitt ing Diagno sis(es ): Dictat ed by: Shin newell MD (CT) (CT) Page 3 of 3 MIGRATION. [id number] [facility] (Imaging) [address], [place], [address], 07/31/2022 13:15:16 08/02/19 22 07/31/2021 CT, chest , w/o contr ast No observ ation record ed. MIGRATION. [id number] Not Available 07/31/2022 13:15:16 08/04/19 22 08/03/2021 elect rocar diogr am No observ ation record ed. MIGRATION. 12045 Not Available 07/31/2022 13:15:16 08/04/19 22 08/03/2021 elect rocar diogr am No observ ation record ed. MIGRATION. [id number] Not Available 07/31/2022 13:15:16 08/04/19 22 08/03/2021 XR, chest No observ ation record ed. MIGRATION. 09621 Not Available 07/31/2022 13:15:16 08/07/19 22 08/03/2021 elect rocar diogr am No observ ation record ed. MIGRATION. 08823 Not Available 07/31/2022 13:15:16 08/07/19 22 08/03/2021 elect rocar diogr am No observ ation record ed. MIGRATION. [id number] Not Available 07/31/2022 13:15:16 08/08/19 22 08/01/2021 MRI, neck, w/o contr ast No observ ation record ed. MIGRATION. [id number] [facility] [address], [place], [address], 07/31/2022 13:15:16 08/10/19 22 07/31/2021 six minut e walk test* No observ ation record ed. MIGRATION. [id number] Not Available 07/31/2022 13:15:16 08/10/19 22 07/31/2021 PFT, compl ete No observ ation record ed. MIGRATION. 81022 Not Available 07/31/2022 13:15:16 08/15/19 22 imagi ng/di agnos tic resul t No observ ation record ed. MIGRATION. [id number] Not Available 07/31/2022 13:15:16 08/15/19 22 imagi ng/di agnos tic resul t No observ ation record ed. MIGRATION. Not Available 07/31/2022 13:15:16 08/17/19 22 08/16/2021 elect rocar diogr am No observ ation record ed. MIGRATION. [id number] Not Available 07/31/2022 13:15:16 08/17/19 22 08/16/2021 CT, head, w/o contr ast No observ ation record ed. MIGRATION. [id number] Not Available 07/31/2022 13:15:16 08/17/19 22 08/16/2021 elect rocar diogr am inter preta tion* No observ ation record ed. MIGRATION. 15423 Not Available 07/31/2022 13:15:16 08/18/19 22 08/17/2021 elect rocar diogr am No observ ation record ed. MIGRATION. [id number] Not Available 07/31/2022 13:15:16 12/20/19 22 2021 XR, kidne y + urete r + bladd er No observ ation record ed. MIGRATION. [id number] Not Available 07/31/2022 13:15:16 02/21/20 22 02/20/2022 cardi ac stres s test No observ ation record ed. MIGRATION. 65715 Not Available 07/31/2022 13:15:16 02/23/20 22 imagi ng/di agnos tic resul t No observ ation record ed. MIGRATION. 50746 Not Available 07/31/2022 13:15:16 02/26/20 22 02/12/2022 elect rocar diogr am No observ ation record ed. MIGRATION. [id number] Not Available 07/31/2022 13:15:16 04/10/20 22 04/09/2022 elect rocar diogr am No observ ation record ed. MIGRATION. 36903 Not Available 07/31/2022 13:15:16 04/12/20 22 04/12/2022 CT, head, w/o contr ast No observ ation record ed. MIGRATION. [id number] Not Available 07/31/2022 13:15:16 04/12/20 22 04/12/2022 XR, chest No observ ation record ed. MIGRATION. [id number] Not Available 07/31/2022 13:15:16 04/12/20 22 04/12/2022 elect rocar diogr am No observ ation record ed. MIGRATION. [id number] Not Available 07/31/2022 13:15:16 04/15/20 22 04/12/2022 elect rocar diogr am No observ ation record ed. MIGRATION. [id number] Not Available 07/31/2022 13:15:16 05/02/20 22 05/02/2022 elect rocar diogr am No observ ation record ed. MIGRATION. [id number] Not Available 07/31/2022 13:15:16 05/02/20 22 05/02/2022 XR, chest No observ ation record ed. MIGRATION. [id number] Not Available 07/31/2022 13:15:16 05/02/20 22 05/02/2022 elect rocar diogr am No observ ation record ed. MIGRATION. [id number] Not Available 07/31/2022 13:15:16 05/03/20 22 05/03/2022 elect rocar diogr am No observ ation record ed. MIGRATION. [id number] Not Available 07/31/2022 13:15:16 05/07/20 22 05/05/2022 US, echoc ardio gram No observ ation record ed. MIGRATION. [id number] Not Available 07/31/2022 13:15:16 05/07/20 22 05/05/2022 XR, chest No observ ation record ed. MIGRATION. [id number] Not Available 07/31/2022 13:15:16 05/10/20 22 05/09/2022 US, echoc ardio gram, trans esoph ageal No observ ation record ed. MIGRATION. 31217 Not Available 07/31/2022 13:15:16 06/06/19 23 02/20/2022 cardi ac stres s test No observ ation record ed. MIGRATION. Not Available 07/31/2022 13:15:16 06/06/19 23 06/06/2022 cardi ac stres s test No observ ation record ed. MIGRATION. Not Available 07/31/2022 13:15:16 08/02/19 23 XR, knee, 3 view No observ ation record ed. [email or web address] [facility] [place] [address], [place], [address], 08/01/2022 13:02:12 08/03/19 23 MRI knee lt wo [facility] [address] [address] Patien t Name: MAYRA LOMELI [facility] ion #: [id number] Sex: M : 1940 Locati on: IND Attend ing Physic diaz: Salinas carrasco Physic diaz: AB CARROLL Exam Date: 08/02/19 12:18 PM Exam Name: MRI KNEE LT WO Admitt ing Diagno sis(es ): RADIOL OGY REPORT - FINAL EXAM: MRI KNEE LT WO HISTOR Y: pain 81-yea r-old male with left knee pain, no known injury . COMPAR CARMEN: Left knee radiog raphs dated 2022; left knee MRI dated 2021. TECHNI QUE: Multip lanar multis equenc e noncon trast MR images of the left knee were perfor med. Axial: T2, Jones l: T1, PD, Fat Sep G, Sagita l: T2, PD, Fat Sep G, ACL chaser . FINDIN GS: No fractu re or bone marrow edema are identi fied throug hout the left knee. The ACL, PCL, MCL, LCL, patell ar tendon , and poplit eus tendon are intact . There is thicke karina and signal abnorm ality of the distal laila ceps tendon near the patell ar insert ion. The medial and latera l menisc i are intact . No Page 1 of 2 [facility] Pati t Name: MAYRA LOMELI ion #: [id number] Sex: M : 1940 Exam Date: 08/02/19 12:18 PM Exam Name: MRI KNEE LT WO Admitt ing Diagno sis(es ): signif icant latera l patell ar sublux ation. There are promin ent enthes ophyte s on the tibial tuberc le and superi or and inferi or poles of the patell a. There is full-t hickne ss loss of articu lar cartil age involv ing the latera l aspect of the medial femora l condyl e. There is low-gr annette chondr omalac ia of the patell ofemor al and latera l compar tments . There are subcor tical cystic change s on both sides of the proxim al tibiof ibular joint. There is a modera te joint effusi on. No signif icant poplit eal fossa cyst. IMPRES MERNA: 1. The crucia te ligame nts, collat eral ligame nts, and both menisc i are intact . 2. Laila ceps tendin osis; laila ceps and patell ar tendon calcif ic enthes opathy . 3. Interm ediate to advanc ed chondr omalac ia of the medial compar tment; low-gr annette chondr omalac ia of the latera l and patell ofemor al compar tments . 4. Modera te left knee effusi on. Create d and electr onical ly signed by: Brian paris MD Signed Date: 08/03/19 6:31 AM (CT) Dictat ed by: Brian paris MD (CT) (CT) Page 2 of [address] (Imaging) [address] [place] [address], [address], 08/02/2022 07:42:09 08/03/19 23 08/01/2022 MRI, knee, w/o contr ast No observ ation record ed. [email or web address] [facility] [address], [place], [address], 08/02/2022 10:28:08 08/14/19 23 08/01/2022 MRI, knee, w/o contr ast No observ ation record ed. [email or web address] [facility] [address], [place], [address], 08/13/2022 09:45:04 09/10/19 MRI, cervi marika spine , w/wo contr ast No observ ation record ed. Not Available 2022 16:44:25 10/30/19 23 10/26/2022 CT, cervi marika spine , w/o contr ast No observ ation record ed. Not Available 2022 17:56:42 11/28/19 23 11/24/2022 sleep study , diagn ostic (PROC ) No observ ation record ed. Not Available 2022 17:24:35 01/04/20 23 01/02/2023 elect romyo gram + nerve condu ction study No observ ation record ed. Not Available 2022 12:13:37 03/28/20 23 03/28/2023 elect rocar diogr am No observ ation record ed. Not Available 2022 16:22:23 03/31/20 23 03/28/2023 elect rocar diogr am No observ ation record ed. Not Available 2022 15:21:57 Result Notes None recorded. 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 Active Not Available [facility] 3 13:13:28 Disorder of trunk 631374867 Active Not Available [facility] 3 13:13:28 Backache 235589208 Active Not Available [facility] 3 13:13:28 Spinal stenosis of lumbar region 67282085 Active Not Available [facility] 3 13:13:28 Localized, primary osteoarthr itis of the pelvic region and thigh 339826818 Active Not Available [facility] 3 13:13:28 Partial thickness rotator cuff tear 808579479 Active 2019 Not Available [facility] 3 13:13:28 Knee pain Active Not Available [facility] 3 13:13:28 Osteoarthr itis of left knee joint 0973578790168 09 Active 2021 Not Available [facility] 3 13:13:28 Cervical spondylosi s 930226668 Active 2021 Not Available [facility] 3 13:13:29 Thoracic spondylosi s 911893922 Active 2021 Not Available [facility] 3 13:13:29 Osteoarthr itis 644449153 Active Not Available [facility] 3 13:13:29 Disorder of rotator cuff 506686355 Active Not Available [facility] 3 13:13:29 Disorder of tendon of biceps 785726547 Active 2018 Not Available [facility] 3 13:13:29 Hip pain 24107546 Active Not Available [facility] 3 13:13:29 Cervical radiculopa thy 66373100 Active 2021 Not Available [facility] 3 13:13:29 Disorder of bursa of shoulder region 38897370 Active Not Available [facility] 3 13:13:29 Degenerati ve joint disease of shoulder region 95723583 Active Not Available [facility] 3 13:13:29 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 Procedures Surgical History Date Name Laterality Status Provider Name and Address Organization Details Recorded Time Ortho - Cortisone Injection completed Ab Weber MD [address], [address], [place], [address], [employer] 09/05/2022 13:37:18 Imaging Results Imaging Date Name Status LastModified by Organization Details LastModified Time 02/20/2022 cardiac stress test completed MIGRATIO N.23992 [id number] Information not available 07/31/2022 13:15:16 06/06/2022 cardiac stress test completed MIGRATIO N.21023 74405 Information not available 07/31/2022 13:15:16 06/27/2021 MRI, knee, w/o contrast completed MIGRATION.[id number] [id number] [facility] [address], [place], [address], 07/31/2022 13:15:16 06/14/2021 XR, knee, 3 view completed MIGRATION.0 3012 [id number] [facility] [place] [address], [place], [address], 07/31/2022 13:15:16 06/27/2021 MRI knee lt wo completed MIGRATION.[id number] [facility] (Imaging) [address], [place], [address], 07/31/2022 13:15:16 08/03/2021 electrocardiogram completed MIGRATION. 90745 12442 Information not available 07/31/2022 13:15:16 08/03/2021 electrocardiogram completed MIGRATION. 41185 95720 Information not available 07/31/2022 13:15:16 08/03/2021 electrocardiogram completed MIGRATION. 68858 [id number] Information not available 07/31/2022 13:15:16 08/03/2021 XR, chest completed MIGRATION.17436 45593 Information not available 07/31/2022 13:15:16 08/01/2021 MRI, cervical spine, w/o contrast completed MIGRATION.[id number] [facility] (Imaging) [address] [place], [address], 07/31/2022 13:15:16 07/31/2021 CT, chest, w/o contrast completed MIGRATION.99523 70149 Information not available 07/31/2022 13:15:16 08/03/2021 electrocardiogram completed MIGRATION. 46789 08419 Information not available 07/31/2022 13:15:16 08/01/2021 MRI, neck, w/o contrast completed MIGRATION.62451 56958 [facility] [address], [place], [address], 07/31/2022 13:15:16 07/24/2021 XR, cervical spine, 2 or 3 view completed MIGRATION.39465 57709 [facility] [place] [address], [place], [address], 07/31/2022 13:15:16 07/24/2021 XR, thoracic spine completed MIGRATION .95724 64342 [facility] [place] [address], [place], [address], 07/31/2022 13:15:16 07/31/2021 six minute walk test* completed MIGRATION.17672 43473 Information not available 07/31/2022 13:15:16 07/31/2021 PFT, complete completed MIGRATION.0301 2 91070 Information not available 07/31/2022 13:15:16 08/17/2021 electrocardiogram completed MIGRATION. 66667 75504 Information not available 07/31/2022 13:15:16 08/14/2021 imaging/diagnostic result completed MIGRATION.70857 78538 Information not available 07/31/2022 13:15:16 08/14/2021 imaging/diagnostic result completed MIGRATION.83989 89964 Information not available 07/31/2022 13:15:16 08/16/2021 electrocardiogram completed MIGRATION. 57556 91224 Information not available 07/31/2022 13:15:16 08/16/2021 CT, head, w/o contrast completed MIGRATION.08460 10789 Information not available 07/31/2022 13:15:16 08/16/2021 electrocardiogram interpretation* completed MIGRATION.84917 42491 Information not available 07/31/2022 13:15:16 02/22/2022 imaging/diagnostic result completed MIGRATION.29006 60652 Information not available 07/31/2022 13:15:16 02/20/2022 cardiac stress test completed MIGRATIO N.18625 37059 Information not available 07/31/2022 13:15:16 02/12/2022 electrocardiogram completed MIGRATION. 47982 92916 Information not available 07/31/2022 13:15:16 04/09/2022 electrocardiogram completed MIGRATION. 51849 29416 Information not available 07/31/2022 13:15:16 04/12/2022 CT, head, w/o contrast completed MIGRATION.62390 78538 Information not available 07/31/2022 13:15:16 04/12/2022 XR, chest completed MIGRATION.18531 95672 Information not available 07/31/2022 13:15:16 04/12/2022 electrocardiogram completed MIGRATION. 58566 08258 Information not available 07/31/2022 13:15:16 05/09/2022 US, echocardiogram, transesophageal completed MIGRATION.23022 23058 Information not available 07/31/2022 13:15:16 05/02/2022 electrocardiogram completed MIGRATION. 06452 16527 Information not available 07/31/2022 13:15:16 05/03/2022 electrocardiogram completed MIGRATION. 60983 23718 Information not available 07/31/2022 13:15:16 05/02/2022 XR, chest completed MIGRATION.61201 10936 Information not available 07/31/2022 13:15:16 05/05/2022 US, echocardiogram completed MIGRATION .06888 57704 Information not available 07/31/2022 13:15:16 05/05/2022 XR, chest completed MIGRATION.71932 36994 Information not available 07/31/2022 13:15:16 05/02/2022 electrocardiogram completed MIGRATION. 39981 98494 Information not available 07/31/2022 13:15:16 04/12/2022 electrocardiogram completed MIGRATION. 10162 49224 Information not available 07/31/2022 13:15:16 2021 XR, kidney + ureter + bladder completed MIGRATION.64734 52914 Information not available 07/31/2022 13:15:16 08/01/2022 XR, knee, 3 view completed talia [facility] [place] [address], [place], [address], 08/01/2022 13:02:12 08/02/2022 MRI knee lt wo completed talia [facility] (Imaging) [address] [place], [address], 08/02/2022 07:42:09 08/01/2022 MRI, knee, w/o contrast completed [email or web address] [facility] [address], [place], [address], 08/02/2022 10:28:08 08/01/2022 MRI, knee, w/o contrast completed [email or web address] [facility] [address], [place], [address], 08/13/2022 09:45:04 09/09/2022 MRI, cervical spine, w/wo contrast completed Information not available 09/09/2022 16:44:25 10/26/2022 CT, cervical spine, w/o contrast completed Information not available 10/29/2022 17:56:42 11/24/2022 sleep study, diagnostic (PROC) completed Information not available 11/27/2022 17:24:35 01/02/2023 electromyogram + nerve conduction study completed Information not available 01/03/2023 12:13:37 03/28/2023 electrocardiogram completed Informa tion not available 03/28/2023 16:22:23 03/28/2023 electrocardiogram completed Informa tion not available 03/31/2023 15:21:57 Procedure Notes None recorded. Medical Equipment None Reported. Medications Name Sig Start Date Stop Date Status Note LastModified by Organization Details LastModified Time neomycin-po lymyxin-hyd rocort 3.5 mg/mL-10,00 0 unit/mL-1 % ear solution 05/04 completed Not Available Not Available Not Available prednisone 10 mg tablet 06/14 completed Not Available Not Available Not Available doxycycline hyclate 100 mg capsule Take 1 capsule twice a day by oral route. 06/14 completed Not Available Not Available Not Available atorvastati n 20 mg tablet TAKE 1 TABLET BY MOUTH AT BEDTIME active Not Available Not Available No t Available azithromyci n 250 mg tablet 05/04 completed Not Available Not Available Not Available tramadol 37.5 mg-acetamin ophen 325 mg tablet 05/04 completed Not Available Not Available Not Available hydrocodone 5 mg-acetamin ophen 325 mg tablet 05/04 completed Not Available Not Available Not Available meloxicam 15 mg tablet 05/04 completed Not Available Not Available Not Available bupivacaine HCl 0.5 % (5 mg/mL) injection solution Take 20 mg by injection route. active Not Available Not Available No t Available quinapril 10 mg-hydrochl orothiazide 12.5 mg tablet 06/14 completed Not Available Not Available Not Available clopidogrel 75 mg tablet TAKE 1 TABLET BY MOUTH EVERY MORNING active Not Available Not Available No t Available amlodipine 5 mg tablet active Not Available Not Available Not Available sulfamethox azole 800 mg-trimetho prim 160 mg tablet 05/04 completed Not Available Not Available Not Available tramadol 50 mg tablet active Not Available Not Available No t Available cefazolin 10 gram solution for injection active Not Available Not Available No t Available prednisone 10 mg tablets in a dose pack Take 1 tab by mouth, 3 times a day for 3 daysTake 1 tab by mouth 2 times a day for 2 daysTake 1 tab by mouth once a day for 1 day 06/14 completed Not Available Not Available Not Available amoxicillin 875 mg tablet 05/04 completed Not Available Not Available Not Available alprazolam 0.25 mg tablet 05/04 completed Not Available Not Available Not Available quinapril 20 mg-hydrochl orothiazide 25 mg tablet 05/04 completed Not Available Not Available Not Available tamsulosin 0.4 mg capsule active Not Available Not Available Not Available Kenalog 10 mg/mL suspension for injection Take 20 mg by injection route. 2022 active [facility]: [phone] Not Available Not Available Not Available meclizine 25 mg tablet active Not Available Not Available Not Available benzonatate 100 mg capsule TK 2 CS PO BID 05/04 completed Not Available Not Available Not Available cephalexin 500 mg capsule 05/04 completed Not Available Not Available Not Available nitroglycer in 0.4 mg sublingual tablet active Not Available Not Available Not Available allopurinol 300 mg tablet active Not Available Not Available Not Available mupirocin 2 % topical ointment APPLY TO THE AFFECTED AREA TWICE DAILY UNTIL HEALED active Not Available Not Available No t Available Viagra 100 mg tablet TK 1 T PO UTD 05/04 completed Not Available Not Available Not Available polyethylen e glycol 3350 17 gram/dose oral powder 05/04 completed Not Available Not Available Not Available [place] 7.5 mg-325 mg tablet 06/14 completed Not Available Not Available Not Available methylpredn isolone 4 mg tablets in a dose pack 05/04 completed Not Available Not Available Not Available albuterol sulfate HFA 90 mcg/actuati on aerosol inhaler INHALE 2 PUFFS BY MOUTH INTO THE LUNGS EVERY 6 HOURS NEEDED FOR WHEEZING active Not Available Not Available No t Available quinapril 20 mg-hydrochl orothiazide 12.5 mg tablet 06/14 completed Not Available Not Available Not Available hydrocodone 7.5 mg-acetamin ophen 500 mg tablet 05/04 completed Not Available Not Available Not Available ondansetron 4 mg disintegrat ing tablet active Not Available Not Available N ot Available cefdinir 300 mg capsule 05/04 completed Not Available Not Available Not Available sertraline 50 mg tablet active Not Available Not Available Not Available naproxen 500 mg tablet TK 1 T PO Q 12 H 06/14 completed Not Available Not Available Not Available oxycodone-a cetaminophe n 10 mg-650 mg tablet 05/04 completed Not Available Not Available Not Available amoxicillin 875 mg-potassiu m clavulanate 125 mg tablet 06/14 completed Not Available Not Available Not Available Vigamox 0.5 % eye drops 05/04 completed Not Available Not Available Not Available nitrofurant oin monohydrate /macrocryst als 100 mg capsule active Not Available Not Available Not Available tramadol 50 mg 2021 active Not Available Not Available Not Avai lable naproxen 500 mg 2021 active Not Available Not Available Not Avai lable Tylenol 650 2021 active Not Available Not Available Not Avai lable lidocaine (PF) 10 mg/mL (1 %) injection solution In office injection administe red by the provider 06/14 completed [facility]: [phone]- [phone] Not Available Not Available Not Available ropivacaine (PF) 5 mg/mL (0.5 %) injection solution Take 20 mg by injection route. 2022 active Not Available Not Available Not Avai lable Vitals Date Recorded Body mass index (BMI) Body mass index (BMI) Body height Body height Pain severity - 0-10 verbal numeric rating [Score] - Reported Body weight Body weight Provider Name and Address Organization Details Last Updated DateTime 3 30.9 kg/m2 30.5 kg/m2 182.88 cm 182.88 cm 7 873942. 06 g 843694. 28 g Not Available [facility] 3 13:13:01 Date Recorded Body height Body mass index (BMI) Body weight Provider Name and Address Organization Details Last Updated DateTime 08/01/2022 182.88 cm 30.4 kg/m2 888933.69 g KILO Mccormack [employer] 08/01/2022 12:34:05 Date Recorded Body height Body mass index (BMI) Body weight Provider Name and Address Organization Details Last Updated DateTime 09/05/2022 182.88 cm 30.5 kg/m2 119953.28 g KRISTINE Gabriel [employer] 09/05/2022 12:58:18 Social History Question Answer Notes LastModified by Organizat ion Details LastModified Time Tobacco Smoking Status Former Smoker Not Available [facility] 07/31/2022 13:12:37 What Is Your Level Of Alcohol Consumption? Occasional [id number] Information not available 07/31/2022 What Was The Date Of Your Most Recent Tobacco Screening? 06/14/2021 [id number] Information not available 07/31/2022 Sex: Unknown Functional Status None recorded. Mental Status None recorded. Family History Relationship Description Onset Age of this Age Resolved Age Notes LastModified by Organization Details LastModified Time Brother Hypertensive disorder [id number] Not available 07/31/2022 13:12:43 Notes:STROKE Medical History Condition Response GOUT Y Past Encounters Encounter ID Performer Location Encounter Start Date Encounter Closed Date Diagnosis/Indication Diagnosis SNOMED-CT Code Diagnosis ICD10 Code Diagnosis Note [id number] [facility] [address] [place] [address] 06/14/2021 00:00:00 06/14/2021 14:36:24 [id number] [facility] [address] [place] [address] 07/24/2021 00:00:00 07/24/2021 17:04:20 [id number] Ab Weber MD [facility] [address] [place] [address] 08/01/2022 12:25:49 08/01/2022 13:14:53 Pain of left knee joint 8364015578 06651 M25.562 Tear of me dial meniscus of knee 054020431 S83.242A [id number] Ab Weber MD [facility] [address] [place] [address] 09/05/2022 12:54:37 09/05/2022 14:03:31 Tear of medial meniscus of knee 595145505 S83.242A Pain of le ft knee joint 2720673422 92915 M25.562 Health Concerns Section Related Observation LastModified by Organization Detai ls LastModified Time None Recorded Concern Status LastModified by Organization Details LastModified Time None Recorded Advance Directives Directive None Recorded Payers Encounter Date Sequence Insurance Name Policy Number Policy Flynn Covered Member ID Flynn Member ID Guarantor Name 08/01/2022 1 [facility] (MEDICARE REPLACEMENT/A DVANTAGE - HMO) [id number] Mayra Lainez [id number] Mayra Hartmann 09/05/2022 1 [facility] (MEDICARE REPLACEMENT/A DVANTAGE - HMO) [id number] Mayra Hartmann [id number] [place] Notes Date Note Type Note Provider Name and Address Organization Details Recorded Time 06/14/2021 text/html KneeReported bypatient.Location :medial Quality:aching; throbbing; sharp; deep; occasional Severity:moderate Duration:continuou s since onset Timing:acute; abrupt Context:cannot identify Alleviating Factors:sitting; lying down; rest; elevation; exercise; stretching Aggravating Factors:walking; lifting; carrying; twisting; bending/squatting Associated Symptoms:no weakness; no numbness; no tingling; no redness; no ecchymosis; no catching/locking; no instability; no radiation down leg; no drainage; no fever; no chills; no weight loss; no change in bowel/bladder habits;swelling;wa rmth;popping/click ing;buckling;grind ing Not Available [employer] 06/14/2021 14:36:24 08/01/2022 text/html Patient returns knee pain left. He localizes the pain to the medial aspect of the left knee it is worse with activity somewhat relieved rest he has got tenderness catching locking pain and pain with any manipulation. Ab Weber MD [address] [place] [address], [place], [address], [employer] 08/01/2022 13:02:56 09/05/2022 text/html Patient returns knee pain left. He is tender medially over the left knee pain to palpation manipulation. He states the pain is worse with motion however he has multiple medical issues and tests coming up and is not interested surgery. Ab Weber MD [address], [place], [address], [employer] 09/05/2022 13:39:16
--- OUTSIDE RECORDS SUMMARY | 2024-07-22 12:34 | XMS_ITS | Patient Health Summary ---
Author Organization [facility] Address [address] [place] [address] Care Team Providers Care Social Insurance Specialist Name Role Phone Jono Villafuerte MD Primary Care Provider [phone] Note from [facility],non-owned Affiliates and Associated Physician Practices is amultiple site organization consisting of ambulatory clinics and hospital sitesin [place], [place], [place] and [place]. This disclosure is being madepursuant to the Care Everywhere program and may not contain all information available regarding this patient. Last updated 18.[facility] Allergies * Meloxicam(Palpitations) -Medium Criticality * Valdecoxib(Palpitations) -Low Criticality Medications * Be aware that medications may not be up to date on this document. Alwaysverify current medications with the patient. * allopurinol (ZYLOPRIM) 300 MG tablet Take 1 (one) tablet by mouth once daily * amLODIPine (NORVASC) 5 MG tablet Take 1 (one) tablet by mouth 2 times daily * aspirin (ASPIRIN) 81 MG chew tablet Take 1 (one) tablet by mouth once daily * atorvastatin (LIPITOR) 20 MG tablet(Started 08/13/2021) Take 1 (one) tablet by mouth at bedtime * Naproxen (NAPROSYN PO) Take 250 mg by mouth as needed * nitroGLYCERIN (NITROSTAT) 0.4 MG tablet(Started 04/25/2020) Dissolve 1 (one) tablet under the tongue as needed * Probiotic Product (ACIDOPHILUS/GOAT MILK) CAPS Take 1 capsule by mouth once daily * traMADol (ULTRAM) 50 MG tablet(Started 04/03/2021) Take 1 (one) tablet by mouth as needed * [place]-3 Fatty Acids (FISH OIL) 1000 MG capsule * tamsulosin (Flomax) 0.4 MG capsule Take 1 (one) capsule by mouth At the same time every other day after a meal. Active Problems Problem Noted Date Diagnosed Date Vertebral artery stenosis, left 09/25/2021 Immunizations * INFLUENZA VACCINE, HIGH-DOSE, QUADR. (FLUZONE HIGH-DOSE QUADRIVALENT; 65Y+), 0.7 ML (HD-IIV4)(Given 03/08/2021) * INFLUENZA VACCINE, QUADR. (FLUZONE; FLULAVAL; FLUARIX; AFLURIA QUADRIVALENT; 6MO+), 0.5 ML (IIV4)(Given 02/08/2020, 03/16/2019) * PNEUMOCOCCAL PPSV23(Given 05/04/2019) * TDAP (7yrs+)(Given 05/04/2019) Social History Tobacco Use Types Packs/Day Years Used Date Smoking Tobacco: Former Cigarettes Q uit: 08/24/1981 Smokeless Tobacco: Never Tobacco Cessation:Counseling Given: Not Answered Alcohol Use Standard Drinks/Week Comments Not Currently 0 (1 standard drink = 0.6 oz pur e alcohol) Sex and Gender Information Value Date Recorded Sex Assigned at Not on file Gender Identity Not on file Sexual Orientation Not on file Last Filed Vital Signs Vital Sign Reading Time Taken Comments Blood Pressure 144/72 11/18/2022 8:49 AM CDT Pulse 60 11/18/2022 8:49 AM CDT Temperature 36.7 C (98 F) 10/22/2021 9:27 AM CDT Respiratory Rate 14 11/18/2022 8:49 AM CDT Oxygen Saturation 99% 10/22/2021 12:30 PM CDT Inhaled Oxygen Concentration - - Weight 103.9 kg (229 lb) 11/18/2022 8:49 AM CDT Height 182.9 cm (6') 10/22/2021 7:05 AM CDT Body Mass Index 31.06 10/22/2021 7:05 AM CDT Procedures * IR CAROTID OR VERTEBRAL STENT(Performed 10/22/2021) Performed for Vertebral artery stenosis, left * PT-INR [facility](Performed 10/22/2021) Performed for Vertebral artery stenosis, left * CBC W AUTO DIFFERENTIAL(Performed 10/22/2021) Performed for Vertebral artery stenosis, left * BASIC METABOLIC PANEL (CALCIUM TOTAL)(Performed 10/22/2021) Performed for Vertebral artery stenosis, left * MRI BRAIN WO CONTRAST(Performed 09/02/2021) Performed for Cerebrovascular accident (CVA), unspecified mechanism (HCC) Results * IR CAROTID OR VERTEBRAL STENT (10/22/2021 9:03 AM CDT) Anatomical Region Laterality Modality Head X-Ray Angiograph y 10/22/2021 9:42 AM CDT Impressions 10/24/2021 11:27 AM CDT Impression: 1. Left vertebral artery occlusion the V1 segment 2. Retrograde filling of left V2 segment from collateral filling via muscular branches 3. Mild non-flow limiting stenosis at the origin of the right vertebral artery 4. Absence of both posterior communicating arteries I, Dr. BALTA NOWAK have personally reviewed and interpreted this examination/study. This report was electronically signed by BALTA NOWAK on 10/24/2021 11:27 AM . Narrative 10/24/2021 11:27 AM CDT Procedure: Diagnostic Catheter Cerebral Angiogram 10/22/2021 Comparison Study: CT Angiogram 07/2021 History: The patient is a 80 year-old man who presents with I65.02: Vertebral artery stenosis, left following bilateral cerebellar ischemic stroke. He is here for catheter angiography to confirm the stenosis and place left vertebral stent if appropriate. Resident Medical Officer: Noemi Nowak Tray Line Worker(s): Rio Maher Vessels: Ultrasound Guided Access of Right Femoral Artery Right Common Carotid Artery Angiogram: Cervical and Cerebral Right Subclavian Artery Angiogram: Cervical and Cerebral Left Common Carotid Artery Angiogram: Cervical and Cerebral Left Subclavian Artery Angiogram: Cervical and Cerebral Right Femoral Artery Angiogram Anesthesia: Moderate sedation on this adult patient was ordered by the flight control tower operator, administered intravenously in my presence, and monitored by the procedure nurse as an independent trained observer who was present throughout the procedure. The following parameters were monitored: oxygen saturation, heart rate, blood pressure, and response to care. Intra-service sedation start time was 0821 and end time was 0911 during which I was present. Total physician intra-service sedation time was 50. For details on sedation patient evaluation, please review the evaluation in EPIC. For details on monitored clinical parameters during the intra-service sedation time, please review the procedure nurse documentation in [facility]. Procedural detail: The risks, benefits, and alternatives to procedure were discussed in detail with the patient and his family. These included but were not limited to the risk of blood loss, vessel injury, stroke, renal injury, and contrast allergy. The patient was brought to the biplane angiography suite where he underwent prep and drape procedures. Limited ultrasound of the right common femoral artery demonstrated a patent vessel. The take off of the profunda and other arteries were identified. A castro scale image was documented. The right common femoral artery was accessed using a micropuncture needle. The needle entry was documented. Following a series of exchanges, a 6 Samoan Cook Shuttle sheath was placed in the right femoral artery and a 5 Samoan [employer] Select 2 catheter was navigated into the aortic arch. The catheter was advanced into the arch and used to select the brachiocephalic artery followed by the right common carotid artery and a cervical and cerebral angiogram was obtained. The catheter was then used to select the brachiocephalic artery followed by the right subclavian artery and a cervical and cerebral angiogram was obtained. The catheter was returned to the arch and used to select the left common carotid artery and a cerebral angiogram was obtained. The catheter was used to select the left subclavian and a cervical and cerebral angiogram was obtained. The right femoral artery angiogram was obtained through the sheath. All catheters and sheaths were removed from the arterial system. Hemostasis was achieved using a 6 Samoan Angio-Seal closure device. Hemostasis was immediate at the end of the closure procedure. The right dorsalis pedis pulse was palpable at the end of the closure procedure. The patient tolerated the procedure without immediate complications. He was returned to the recovery area in hemodynamically stable condition and neurologically unchanged. The estimated blood loss was less than 10 mL. A total of 7.5 minutes of fluoroscopic time and 65 ml of Isovue-300 contrast were utilized for the study. Findings: There was good arterial, capillary, and venous opacification of all angiographic runs. The right common carotid artery angiogram reveals a carotid bifurcation with an irregular lumen at carotid bulb indicative of mild atherosclerotic disease. Visualized branches of the external carotid artery are normal in course and caliber. The cervical segment of the internal carotid artery is normal in course and caliber. The cerebral angiogram reveals a normal course and caliber of the intracranial internal carotid artery. There is no posterior communicating artery. The middle cerebral artery and anterior cerebral artery are also normal in course and caliber as is the venous drainage. The right subclavian artery angiogram reveals a mild non-flow limiting stenosis at the vertebral artery origin measuring 35%. The course and caliber of the V1 and V2 segments are normal. The remaining visualized branches of the subclavian artery are normal in course and caliber. The V3, V4, and vertebrobasilar junction are normal in course and caliber. The major vessels to the cerebellum are normal in course and caliber. The basilar artery and posterior cerebral arteries are also normal in course and caliber. There is retrograde flow into the left V4 segment. The venous drainage is also normal. The right common carotid artery angiogram reveals a carotid bifurcation with irregular lumen at the bulb indicative of atherosclerotic disease. Visualized branches of the external carotid artery are normal in course and caliber. The cervical segment of the internal carotid artery is normal in course and caliber. The cerebral angiogram reveals a normal course and caliber of the intracranial internal carotid artery. There is no posterior communicating artery. The middle cerebral artery and anterior cerebral artery are also normal in course and caliber as is the venous drainage. The left subclavian artery angiogram reveals an occluded vertebral artery at the V1 segment. There is delayed antegrade filling of the V3 and V4 segments via collateral flow from muscular branches. There is retrograde flow of the V2 segment via the collateral flow from muscular branches. The remaining visualized branches of the subclavian artery are normal in course and caliber. There is faint visualization of the left PICA and it appears normal in course and caliber. The right femoral artery angiogram reveals a puncture site above the femoral bifurcation. Procedure Note Balta Nowak MD - 10/24/2021 Procedure: Diagnostic Catheter Cerebral Angiogram 10/22/2021 Comparison Study: CT Angiogram 07/2021 History: The patient is a 80 year-old man who presents with I65.02: Vertebral artery stenosis, left following bilateral cerebellar ischemic stroke. He is here for catheter angiography to confirm the stenosis and place left vertebral stent if appropriate. Resident Medical Officer: Noemi Nowak Tray Line Worker(s): Rio Maher Vessels: Ultrasound Guided Access of Right Femoral Artery Right Common Carotid Artery Angiogram: Cervical and Cerebral Right Subclavian Artery Angiogram: Cervical and Cerebral Left Common Carotid Artery Angiogram: Cervical and Cerebral Left Subclavian Artery Angiogram: Cervical and Cerebral Right Femoral Artery Angiogram Anesthesia: Moderate sedation on this adult patient was ordered by the flight control tower operator, administered intravenously in my presence, and monitored bythe procedure nurse as an independent trained observer who was present throughout the procedure. The following parameters were monitored:oxygen saturation, heart rate, blood pressure, and response to care. Intra-service sedation start time was 0821 and end time was 0911 during which I was present. Total physician intra-service sedation time was 50. For details on sedation patient evaluation, please review the evaluation in [facility]. For details on monitored clinical parameters during the intra-service sedation time, please review the procedure nurse documentation in [facility]. Procedural detail: The risks, benefits, and alternatives to procedurewere discussed in detail with the patient and his family. These included but were not limited to the risk of blood loss, vessel injury, stroke, renal injury, and contrast allergy. The patient was brought to the biplane angiography suite where he underwent prep and drape procedures. Limited ultrasound of the right common femoral artery demonstrated a patent vessel. The take off of the profunda and other arteries were identified. A castro scale image was documented. The right common femoral artery was accessed using a micropuncture needle. The needle entry was documented. Following a series of exchanges, a 6 Samoan Cook Shuttle sheath was placed in the right femoral artery and a 5 Samoan Penumbra Select 2 catheter was navigated into the aortic arch. The catheter was advanced into the arch and used to select the brachiocephalic artery followed by the right common carotid artery and a cervical and cerebral angiogram was obtained. The catheter was then used to select the brachiocephalic artery followed by the right subclavian artery and a cervical and cerebral angiogram was obtained. The catheter was returned to the arch and used to select the left common carotidartery and a cerebral angiogram was obtained. The catheter was used to selectthe left subclavian and a cervical and cerebral angiogram was obtained. The right femoral artery angiogram was obtained through the sheath. All catheters and sheaths were removed from the arterial system. Hemostasis was achieved using a 6 Samoan Angio-Seal closure device. Hemostasis was immediate at the end of the closure procedure. The right dorsalis pedis pulse was palpable at the end of the closure procedure. The patient tolerated the procedure without immediate complications. He was returned to the recovery area in hemodynamically stable conditionand neurologically unchanged. The estimated blood loss was less than 10 mL. A total of 7.5 minutes of fluoroscopic time and 65 ml of Isovue-300 contrast were utilized for the study. Findings: There was good arterial, capillary, and venous opacification of all angiographic runs. The right common carotid artery angiogram reveals a carotid bifurcation with an irregular lumen at carotid bulb indicative of mildatherosclerotic disease. Visualized branches of the external carotid artery are normalin course and caliber. The cervical segment of the internal carotid arteryis normal in course and caliber. The cerebral angiogram reveals a normal course and caliber of the intracranial internal carotid artery. There is no posterior communicating artery. The middle cerebral artery andanterior cerebral artery are also normal in course and caliber as is the venous drainage. The right subclavian artery angiogram reveals a mild non-flow limiting stenosis at the vertebral artery origin measuring 35%. The course and caliber of the V1 and V2 segments are normal. The remaining visualized branches of the subclavian artery are normal in course and caliber. The V3, V4, and vertebrobasilar junction are normal in course and caliber.The major vessels to the cerebellum are normal in course and caliber. The basilar artery and posterior cerebral arteries are also normal in course and caliber. There is retrograde flow into the left V4 segment. Thevenous drainage is also normal. The right common carotid artery angiogram reveals a carotid bifurcation with irregular lumen at the bulb indicative of atherosclerotic disease. Visualized branches of the external carotid artery are normal in course and caliber. The cervical segment of the internal carotid artery isnormal in course and caliber. The cerebral angiogram reveals a normal courseand caliber of the intracranial internal carotid artery. There is noposterior communicating artery. The middle cerebral artery and anterior cerebral artery are also normal in course and caliber as is the venous drainage. The left subclavian artery angiogram reveals an occluded vertebralartery at the V1 segment. There is delayed antegrade filling of the V3 and V4 segments via collateral flow from muscular branches. There is retrograde flow of the V2 segment via the collateral flow from muscular branches.The remaining visualized branches of the subclavian artery are normal in course and caliber. There is faint visualization of the left PICA and it appears normal in course and caliber. The right femoral artery angiogram reveals a puncture site above the femoral bifurcation. Impression: 1. Left vertebral artery occlusion the V1 segment 2. Retrograde filling of left V2 segment from collateral filling via muscular branches 3. Mild non-flow limiting stenosis at the origin of the right vertebral artery 4. Absence of both posterior communicating arteries I, Dr. BALTA NOWAK have personally reviewed and interpreted this examination/study. This report was electronically signed by BALTA NOWAK on 10/24/2021 11:27 AM . Balta Nowak MD IR ORDERABLES * PT-INR [facility] (10/22/2021 6:59 AM CDT) PT 13.7 12.1 - 14.8 Seconds 10/22/2021 7:30 AM CDT [facility] INR 1.1 See Comment 10/22/2021 7:30 AM T [facility] Comment:The suggested therap eutic range for standard coumadin (warfarin) therapy is an INR of 2.0-3.0. For high-risk patients (Mechanical Mitral Valve Prosthesis, etc.), the suggested prophylactic therapeutic range is an INR of 2.5-3.5. Blood BLOOD SPECIMEN / Unknown Venipuncture / Unknown 10/22/2021 6:59 AM CDT 10/22/2021 7:02 AM CDT Jamin Maher MD LAB - COAGULATION OR DERABLES Performing Organization Address [facility]/State/[facility] Co de Phone Number [facility] [address] [place] [address], [facility] [place] [phone] * CBC W AUTO DIFFERENTIAL (10/22/2021 6:59 AM CDT) WBC 6.1 3.5 - 10.5 10 3/uL 10/22/2021 7:28 AM CDT [facility] RBC 4.69 4.30 - 5.70 10 6/uL 10/22/2021 7:28 AM CDT [facility] Hemoglobin 13.3 12.0 - 17.6 g/dL 10/22/2021 7:28 AM CDT [facility] Hematocrit 41.1 35.2 - 51.7 % 10/22/2021 7:28 AM [facility] MCV 87.6 80.7 - 98.3 fL 10/22/2021 7:28 AM [facility] MCH 28.4 26.7 - 34.0 pg 10/22/2021 7:28 AM [facility] MCHC 32.4 30.8 - 35.9 g/dL 10/22/2021 7:28 AM [facility] Platelet Count 166 150 - 400 10 3/uL 10/22/2021 7:28 AM [facility] RDW-SD 45.6 36.0 - 50.0 fL 10/22/2021 7:28 AM [facility] RDW-CV 14.3 11.2 - 14.8 % 10/22/2021 7:28 AM [facility] MPV 10.4 9.4 - 12.9 fL 10/22/2021 7:28 AM [facility] nRBC Absolute 0.00 0 10 3/uL 10/22/2021 7:28 AM [facility] nRBC Auto 0.0 0 /100 WBC 10/22/2021 7:28 AM [facility] Neutrophils % 55.2 35.0 - 70.0 % 10/22/2021 7:28 AM [facility] Lymphocytes % 31.8 20.0 - 43.0 % 10/22/2021 7:28 AM [facility] Monocytes % 10.3 5.0 - 13.0 % 10/22/2021 7:28 AM [facility] Eosinophils % 2.1 0.0 - 6.0 % 10/22/2021 7:28 AM [facility] Basophil % 0.3 0.0 - 2.0 % 10/22/2021 7:28 AM [facility] Neutrophils Absolute 3.4 1.6 - 7.0 10 3/uL 10/22/2021 7:28 AM [facility] Lymphocyte Absolute 2.0 1.1 - 3.9 10 3/uL 10/22/2021 7:28 AM [facility] Monocytes Absolute 0.63 0.26 - 1.07 10 3/uL 10/22/2021 7:28 AM [facility] Eosinophils Absolute 0.13 0.00 - 0.47 10 3/uL 10/22/2021 7:28 AM [facility] Basophils Absolute 0.02 0.00 - 0.08 10 3/uL 10/22/2021 7:28 AM [facility] Immature Granulocytes % 0.3 0.0 - 1.0 % 10/22/2021 7:28 AM [facility] Immature Granulocytes Absolute 0.02 10/22/2021 7:28 AM [facility] Blood BLOOD SPECIMEN / Unknown Venipuncture / Unknown 10/22/2021 6:59 AM CDT 10/22/2021 7:04 AM CDT Jamin Maher MD LAB - HEMATOLOGY ORD ERABLES [facility] [address] [place] [id number], [facility] [place] [phone] * (ABNORMAL) BASIC METABOLIC PANEL (CALCIUM TOTAL) (10/22/2021 6:59 AM CDT) BUN 14 7 - 26 mg/dL 10/22/2021 7:35 AM [facility] Creatinine 1.05 0.71 - 1.16 mg/dL 10/22/2021 7:35 AM [facility] Sodium 144 136 - 145 mmol/L 10/22/2021 7:35 AM [facility] Potassium 3.7 3.5 - 4.5 mmol/L 10/22/2021 7:35 AM [facility] Chloride 110(H) 98 - 107 mmol/L 10/22/2021 7:35 AM [facility] CO2 25 22 - 29 mmol/L 10/22/2021 7:35 AM [facility] Glucose 110 70 - 115 mg/dL 10/22/2021 7:35 AM [facility] Calcium 9.1 8.4 - 10.2 mg/dL 10/22/2021 7:35 AM [facility] Anion Gap 13 8 - 18 10/22/2021 7:35 AM CDT [facility] BUN/Creatinine Ratio 13 7 - 23 10/22/2021 7:35 AM CDT [facility] Osmolality Calculated 299 270 - 300 mOsm/kg 10/22/2021 7:35 AM CDT [facility] eGFR by CKD-EPI 71(L) >=90 mL/min/1.7 3 m2 10/22/2021 7:35 AM CDT [facility] Blood BLOOD SPECIMEN / Unknown Venipuncture / Unknown 10/22/2021 6:59 AM CDT 10/22/2021 7:04 AM CDT Jamin Maher MD LAB [facility] Organization Address City/State/ZIP Co de Phone Number [facility] [address] [place] [address], [facility] [place] [phone] * MRI BRAIN WO CONTRAST (09/02/2021 2:23 PM CDT) Anatomical Region Laterality Modality Head Magnetic Resonan ce 09/03/2021 11:2 9 AM CDT Impressions 09/04/2021 11:03 PM CDT IMPRESSION: 1.No evidence of restricted diffusion to suggest an acute infarction. 2.Chronic findings as outlined above. Dictated by Ngozi Lundy M.D. (radiology equipment servicer). This report was approved by Ngozi Lundy on 09/04/2021 11:03 PM . I, Dr. LUI GAMEZ have personally reviewed and interpreted this examination/study. This report was electronically signed by LUI GAMEZ on 09/04/2021 11:03 PM . Narrative 09/04/2021 11:03 PM CDT MRI BRAIN WO CONTRAST DATE: 09/02/2021 2:24 PM EXAMINATION: Magnetic resonance imaging (MRI) of the brain without contrast HISTORY: I63.9: Cerebrovascular accident (CVA), unspecified mechanism COMPARISON: No prior study is available for comparison at the time of this dictation. TECHNIQUE: MRI of the brain was performed without contrast according to standard protocol. FINDINGS: No evidence of acute or chronic hemorrhage is identified. No evidence of acute cerebral infarction is seen. There is mild cerebral volume loss with associated ex vacuo ventricular dilatation. No masses, mass effect, or midline shift is seen. Periventricular and frontal lobe white matter FLAIR hyperintensities likely represent sequelae of chronic small vessel ischemic disease. Punctate areas of T2/FLAIR hyperintensity in the periventricular and frontal lobe regions likely represent the sequela of chronic small vessel ischemic disease. There is a partially empty sella. The corpus callosum appears grossly unremarkable. Multiple small regions of FLAIR/T2 hyperintensity in the left cerebellar hemisphere likely represents a sequela of prior infarct. The posterior fossa, brainstem, and craniocervical junction appear normal. Other than a right cataract extraction, the visualized portions of the orbital contents, paranasal sinuses, and mastoids appear normal. Normal flow voids are demonstrated in the carotid arteries and basilar artery. The calvarium and visualized cervical spine appear normal. Procedure Note Lui Gamez MD - 09/04/2021 MRI BRAIN WO CONTRAST DATE: 09/02/2021 2:24 PM EXAMINATION: Magnetic resonance imaging (MRI) of the brain withoutcontrast HISTORY: I63.9: Cerebrovascular accident (CVA), unspecified mechanism COMPARISON: No prior study is available for comparison at the time ofthis dictation. TECHNIQUE: MRI of the brain was performed without contrast according to standard protocol. FINDINGS: No evidence of acute or chronic hemorrhage is identified. No evidence of acute cerebral infarction is seen. There is mild cerebral volume losswith associated ex vacuo ventricular dilatation. No masses, mass effect, or midline shift is seen. Periventricular and frontal lobe white matterFLAIR hyperintensities likely represent sequelae of chronic small vessel ischemic disease. Punctate areas of T2/FLAIR hyperintensity in the periventricular and frontal lobe regions likely represent the sequela of chronic small vessel ischemic disease. There is a partially empty sella. The corpus callosum appears grossly unremarkable. Multiple small regions of FLAIR/T2 hyperintensity in the left cerebellar hemisphere likely represents a sequela of prior infarct. The posterior fossa, brainstem,and craniocervical junction appear normal. Other than a right cataract extraction, the visualized portions of the orbital contents, paranasal sinuses, and mastoids appear normal. Normal flow voids are demonstrated in the carotid arteries and basilar artery. The calvarium and visualized cervical spine appear normal. IMPRESSION: 1.No evidence of restricted diffusion to suggest an acute infarction. 2.Chronic findings as outlined above. Dictated by Ngozi Lundy M.D. (radiology equipment servicer). This report was approved by Ngozi Lundy on 09/04/2021 11:03 PM . I, Dr. LUI GAMEZ have personally reviewed and interpreted this examination/study. This report was electronically signed by LUI GAMEZ on09/04/2021 11:03 PM . Balta Nowak MD MR ORDERABLES Care Teams Social Insurance Specialist Relationship Specialty [place] [address] [place] [address] PCP - General Family Medicine 11/18/22
--- OUTSIDE RECORDS SUMMARY | 2024-07-22 12:35 | XMS_ITS | Clinical Summary ---
Author Organization [facility] Address [address], [address] [address] Phone Care Team Providers Care Crystalizer Name Role Phone Randall Saul MD Primary Care Provider [phone] Von Michel DO Unavailable [phone] Allergies No known active allergies Medications polyethylene glycol (MIRALAX) Powder Use entire 255g bottle with 64oz of clear liquid as directed for colonoscopy prep. 255 g 7 Active aspirin EC 81 MG Tablet Delayed Response Take 81 mg by mouth daily. Active allopurinol (ZYLOPRIM) 300 MG Tablet Take 300 mg by mouth daily. Active quinapril-hydro CHLOROthiazide (ACCURETIC) 20-12.5 MG Tablet Take 1 Tab by mouth daily. Active guaiFENesin (MUCINEX) 600 MG TABLET SR 12 HR Take 600 mg by mouth 2 times daily. Active Immunizations Immunization Administration Dates Next Due Covid-19, Mrna, Lnp-s, Pf, 30 Mcg/0.3 Ml Dose (P fizer) 09/03/2020,08/13/2020 Family History Medical History Relation Name Comments Lung Cancer Brother Other-comment Father uremic poision ing Cancer Mother Bladder cancer Sister 1 Colon Cancer Sister 2 Lung Cancer Sister 2 Stroke Sister 2 Relation Name Status Comments Brother Father Mother Sister 1 Sister 2 Social History Tobacco Use Types Packs/Day Years Used Date Smoking Tobacco: Former Smokeless Tobacco: Never Alcohol Use Standard Drinks/Week Comments Yes 0 (1 standard drink = 0.6 oz pur e alcohol) socially Sex and Gender Information Value Date Recorded Sex Assigned at Not on file Legal Sex Male 9:22 PM CDT Gender Identity Not on file Sexual Orientation Not on file Plan of Treatment Health Maintenance Due Date Last Done Comments Hepatitis C Virus (HCV) Screening 1940 Zoster Immunization (1 of 2) 12/17/1989 Respiratory Syncytial Virus (RSV) Immunization (Adult) (1 - 1-dose 75+ series) 12/17/2014 Pneumococcal Immunization (50+ years) (2 of 2 - PCV) 05/04/2020 05/04/2019 Influenza Immunization (#1) 2024 09/0 01/2020, 03/16/2019 SARS-COV-2 Immunization ( season) 2024 04/03/2021, 09/03/2020, 08/13/2020 DTaP/Tdap/Td Immunization Discontinued 05/04/2019 Pneumococcal Immunization Combined Discontinued 05/04/2019 TdaP Immunization Completed 05/04/2019 Hepatitis B Immunization Aged Out No longer eligible based on patient's age to complete this topic Meningococcal Immunization (ACWY) Aged Out No longer eligible based on patient's age to complete this topic Rotavirus Immunization Aged Out No lo nger eligible based on patient's age to complete this topic Insurance MEDICARE [facility] Care Teams Crystalizer Relationship Specialty Start Date End Date Randall Saul MD [address] [place] [id number] PCP - General Internal Medicine 06/09/17 Von Michel DO [address] [place] [id number] Gastroenterology 06/09/17
--- OUTSIDE RECORDS SUMMARY | 2024-07-22 12:35 | XMS_ITS | Clinical Summary ---
Author Organization [facility] Address [address] [place] [address] Care Team Providers Care Direct Service Provider Name Role Phone Jono Villafuerte MD Primary Care Provider [phone] Source Comments [facility],non-Critical access hospitalates and Associated Physician Practices is amultiple site organization consisting of ambulatory clinics and hospital sitesin [place] and [place]. This disclosure is being madepursuant to the Care Everywhere program and may not contain all information available regarding this patient. Last updated 18.[facility] Allergies Active Allergy Reactions Criticality Noted Date Comments Meloxicam Palpitations Medium 11/23/2020 Valdecoxib Palpitations Low 08/21/2021 Medications * Be aware that medications may not be up to date on this document. Alwaysverify current medications with the patient. Medication Sig Dispensed Refills Start Date End Date Status allopurinol (ZYLOPRIM) 300 MG tablet Take 1 (one) tablet by mouth once daily Active amLODIPine (NORVASC) 5 MG tablet Take 1 (one) tablet by mouth 2 times daily Active aspirin (ASPIRIN) 81 MG chew tablet Take 1 (one) tablet by mouth once daily Active atorvastatin (LIPITOR) 20 MG tablet Take 1 (one) tablet by mouth at bedtime 08/13/2021 Active Naproxen (NAPROSYN PO) Take 250 mg by mouth as needed Active nitroGLYCERIN (NITROSTAT) 0.4 MG tablet Dissolve 1 (one) tablet under the tongue as needed 04/25/2020 Active Probiotic Product (ACIDOPHILUS/GOAT MILK) CAPS Take 1 capsule by mouth once daily Active traMADol (ULTRAM) 50 MG tablet Take 1 (one) tablet by mouth as needed 04/03/2021 Active [place]-3 Fatty Acids (FISH OIL) 1000 MG capsule Active tamsulosin (Flomax) 0.4 MG capsule Take 1 (one) capsule by mouth At the same time every other day after a meal. Active Active Problems Problem Noted Date Diagnosed Date Vertebral artery stenosis, left 09/25/2021 Immunizations Name Administration Dates Next Due INFLUENZA VACCINE, HIGH-DOSE , QUADR. (FLUZONE HIGH-DOSE QUADRIVALENT; 65Y+), 0.7 ML (HD-IIV4) 03/08/2021 INFLUENZA VACCINE, QUADR. (F LUZONE; FLULAVAL; FLUARIX; AFLURIA QUADRIVALENT; 6MO+), 0.5 ML (IIV4) 02/08/2020,03/16/2019 PNEUMOCOCCAL PPSV23 05/04/2019 TDAP (7yrs+) 05/04/2019 Social History Tobacco Use Types Packs/Day Years [...] Mass Index 31.06 10/22/2021 7:05 AM CDT Plan of Treatment Health Maintenance Due Date Last Done Comments ZOSTER VACCINE (1 of 2) 12/17/1989 Respiratory Syncytial Virus (RSV) Vaccine Pt: or over 60 yrs (1 - 1-dose 75+ series) 12/17/2014 PNEUMOCOCCAL VACCINE 50+ (2 of 2 - PCV) 05/04/2020 05/04/2019 COVID-19 VACCINE ( season) 2024 11/22/2021, 04/03/2021, 09/03/2020, Additional history exists INFLUENZA VACCINE (#1) 2024 , 02/08/2020, 03/16/2019 DEPRESSION SCREENING 06/02/2024 MEDICARE AWV CALENDAR YEAR 2024 DTAP/TDAP/TD VACCINES (2 - Td or Tdap) 05/04/2029 05/04/2019 HEPATITIS B VACCINE Aged Out No longe r eligible based on patient's age to complete this topic HIB VACCINE Aged Out No longer eligi ble based on patient's age to complete this topic HPV VACCINE Aged Out No longer eligi ble based on patient's age to complete this topic MENINGOCOCCAL (Group B) VACCINE Aged Out No longer eligible based on patient's age to complete this topic MENINGOCOCCAL VACCINE Aged Out No laz sarai eligible based on patient's age to complete this topic Care Teams Direct Service Provider Relationship Specialty [place] [address] [place] [address] PCP - General Family Medicine 11/18/22
--- OUTSIDE RECORDS SUMMARY | 2024-07-22 12:35 | XMS_ITS | Referral Summary ---
Author Organization [facility] Address [address] [place] [address] Care Team Providers Care Torpedo Shooter Name Role Phone Jono Villafuerte MD Primary Care Provider [phone] Source Comments [facility] and Associated [facility]ician Practices is amultiple site organization consisting of ambulatory clinics and hospital sitesin [place], [place], [place] and [place]. This disclosure is being madepursuant to the Care Everywhere program and may not contain all information available regarding this patient. Last updated 18.[facility] Allergies Active Allergy Reactions Criticality Noted Date [...] tablet by mouth as needed 04/03/2021 Active [place]-3 Fatty Acids (FISH OIL) 1000 MG capsule [...] Mass Index 31.06 10/22/2021 7:05 AM CDT Functional Status Functional Status Response Date of Assess ment Is person deaf or have serious hearing difficult y? No 10/22/2021 Is person blind or have serious difficulty seein g? No 10/22/2021 Does person have serious dif ficulty walking/climbing stairs? No 10/22/2021 Does person have difficulty dressing/bathing? No 10/22/2021 Does person have difficulty doing errands alone? No 10/22/2021 Cognitive Status Response Date of Assessm ent Does person have difficulty concentrating/remembering/making decisions? No 10/22/2021 Plan of Treatment Not on file Care Teams Torpedo Shooter Relationship Specialty Start [place] [address] [place] [address] PCP - General Family Medicine 11/18/22
[2024-07-22 12:54] LABS: Glucose Point of Care 114 mg/dl (65-105)
== END 2024-07-22 12:30 | disposition home or self-care (01) ==
PROVIDERS: PCP Nurse Practitioner Family; Visit Provider Urology
DX: C67.8 Malignant neoplasm of overlapping sites of bladder (principal); J90 Pleural effusion, not elsewhere classified; R59.0 Localized enlarged lymph nodes; E27.8 Other specified disorders of adrenal gland
CPT/HCPCS: 78815; A9552